=== PATIENT | male | born 1945 | race Caucasian/White ===

== ENCOUNTER → 2016-12-18 | Outpatient (CLI) | payer OTHER ==
[~2016-12-18] MED LIST: ATOR10TA88 PO; CHOL400C7 PO; HYDR50CA2 PO; MULT-506 PO; POLY335019 PO; VITACAP25 PO
[2016-12-18 17:46] LABS: ALT/SGPT 29 U/L (12-78); AST/SGOT 17 U/L (15-37); BLOOD UREA NITROGEN 17 mg/dl (7-18); BUN/CREATININE RATIO 18.6 (10-20); CALCIUM 8.8 mg/dl (8.5-10.1); CARBON DIOXIDE 26 mmol/L (21-32); CHLORIDE 110 mmol/L (98-107); CHOLESTEROL 143 mg/dl (0-200); CREATININE 0.93 mg/dl (0.60-1.40); GLUCOSE 97 mg/dl (70-99); POTASSIUM 4.2 mmol/L (3.5-5.1); SODIUM 142 mmol/L (136-145); TRIGLYCERIDES 76 mg/dl (0-150); VERY LOW DENSITY LIPOPROT CALC 15 mg/dl
[2016-12-18 18:06] LABS: ALB/GLOB RATIO 1.1 (0.9-2); ALKALINE PHOSPHATASE 85 U/L (45-117); CHOLESTEROL/HDL RATIO 2.5; HDL CHOLESTEROL 57 mg/dl; LDL CHOLESTEROL CALCULATED 71 mg/dl
--- NOTE | 2016-12-23 13:22 | CODING QUERY MEDICAL NECESSITY ---
SUPPORTING DIAGNOSIS NEEDED A supporting diagnosis is required for the test/procedure performed on this patient in order for us to be reimbursed by the patient's insurance. Please provide a supporting diagnosis for the following test/procedure listed below next to the test name along with your signature. *If there is no additional diagnosis for this patient that would support the following test/procedure please document that below next to the test/procedure. Test(s)/Procedure(s) that require a supporting diagnosis: DOS 12/18 * Vitamin D DIAGNOSIS: Provider Signature: Date: Thank you Lona [facility] Information [facility] Once completed, please kindly fax back to [phone] For questions please call [phone]
== END | disposition home or self-care (01) ==
LOC: C.LABPVFM 11:58
PROVIDERS: ATTEND Nurse Practitioner
DX: R41.3 Other amnesia (principal); E78.00 Pure hypercholesterolemia, unspecified; R63.4 Abnormal weight loss; M81.0 Age-related osteoporosis without current pathological fracture

== ENCOUNTER → 2017-03-25 | Outpatient (CLI) | payer OTHER ==
--- NOTE | 2017-03-25 14:15 | DIAGNOSTIC IMAGING REPORT ---
RIGHT SHOULDER MIN 2 VIEWS ROUTINE CLINICAL HISTORY: Right shoulder pain. No known injury. COMPARISON: None FINDINGS: Alignment of the right shoulder is anatomic. There is no fracture or suspicious osseous lesion. There is moderate AC joint arthrosis and moderate arthrosis of the glenohumeral joint. IMPRESSION: 1. No acute fracture. 2. 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 Electronically signed by: David Alfred M.D. 03/25/2017 2:14 PM Dictated Date/Time: 03/25/2017 2:04 PM
== END | disposition home or self-care (01) ==
LOC: C.LABPVFM 13:45
PROVIDERS: ATTEND Nurse Practitioner
DX: M25.511 Pain in right shoulder (principal); M19.011 Primary osteoarthritis, right shoulder

== ENCOUNTER → 2017-08-11 | Outpatient (CLI) | payer OTHER ==
[~2017-08-11] MED LIST changes: +ATOR10TA82 PO; -ATOR10TA88 PO
[2017-08-11 17:34] LABS: BLOOD UREA NITROGEN 17 mg/dl (7-18); BUN/CREATININE RATIO 17.5 (10-20); CALCIUM 8.6 mg/dl (8.5-10.1); CARBON DIOXIDE 26 mmol/L (21-32); CHLORIDE 108 mmol/L (98-107); CREATININE 0.98 mg/dl (0.60-1.40); GLUCOSE 99 mg/dl (70-99); POTASSIUM 4.1 mmol/L (3.5-5.1); SODIUM 141 mmol/L (136-145)
== END | disposition home or self-care (01) ==
LOC: C.LABPVFM 12:03
PROVIDERS: ATTEND Nurse Practitioner
DX: G11.9 Hereditary ataxia, unspecified (principal); M54.5 Low back pain

== ENCOUNTER → 2018-01-29 | Outpatient (CLI) | payer OTHER ==
--- NOTE | 2018-01-29 11:14 | DIAGNOSTIC IMAGING REPORT ---
R HUMERUS MIN 2 VIEWS ROUTINE CLINICAL HISTORY: ARM PAIN DIFFUSE pain COMPARISON: None. DISCUSSION: The bones and joint spaces appear intact. There is no evidence of fracture, dislocation or bony disease. There is no evidence for soft tissue swelling. IMPRESSION: Negative study. The above report was generated using voice recognition software. It may contain grammatical, syntax or spelling errors. Electronically signed by: Jovon Plata M.D. 01/29/2018 11:13 AM Dictated Date/Time: 01/29/2018 11:12 AM
== END | disposition home or self-care (01) ==
LOC: C.RADPV 10:49
PROVIDERS: ATTEND Nurse Practitioner
DX: M79.603 Pain in arm, unspecified (principal)

== ENCOUNTER → 2018-05-06 | Outpatient (CLI) | payer OTHER ==
[~2018-05-06] MED LIST changes: +DOCU-94 PO; +OXYC-737 PO; -POLY335019 PO; +SENN1TAB77 PO
[2018-05-06 17:39] LABS: BLOOD UREA NITROGEN 15 mg/dl (7-18); CALCIUM 8.7 mg/dl (8.5-10.1); CARBON DIOXIDE 28 mmol/L (21-32); CHOLESTEROL 130 mg/dl (0-200); CREATININE 0.95 mg/dl (0.60-1.40); GLUCOSE 100 mg/dl (70-99); LDL CHOLESTEROL CALCULATED 50 mg/dl; POTASSIUM 4.1 mmol/L (3.5-5.1); SODIUM 140 mmol/L (136-145)
== END | disposition home or self-care (01) ==
LOC: C.LABPVFM 11:30
PROVIDERS: ATTEND Nurse Practitioner
DX: E78.00 Pure hypercholesterolemia, unspecified (principal); R41.3 Other amnesia

== ENCOUNTER 2020-07-04 15:59 | Inpatient (IN) ==
[2020-07-04] MEDS ORDERED: SODIUM CHLORIDE 0.9% 1000ML 2,000 ML IV ONE (16:21)
[2020-07-04] MEDS ORDERED: PIPERACILLIN/TAZOBACTAM 4.5 GM/120 ML BAG IV ONE (16:22)
[2020-07-04] MEDS ORDERED: PIPERACILL/TAZOBAC CONSULT ACTIVE PRN (16:22)
--- NOTE | 2020-07-04 16:31 | Emergency Department Note ---
History of Present Illness General Chief complaint: Fever Stated complaint: FEVER, VOMITING, URINE Time Seen by Provider: 07/04/20 16:13 Source: patient, EMS, RN notes reviewed and old records reviewed Mode of arrival: EMS Limitations: altered mental status History of Present Illness Provider complaint: Fever, AMS Onset (ago): hour(s) 1 Location: abdomen Radiation: back Severity: moderate Pain Consistency: + constant Current Pain Intensity: 10 Quality: + stabbing Relieved By: + immobilization Exacerbated By: + movement Associated symptoms: + fever/chills, + nausea/vomiting and + shortness of breath Treatments prior to arrival: none This is a 75-year-old male who presents emergency department in acute distress. Patient arrives from [facility]. Per report the patient had a sudden decompensation approxi-1 hour ago. He was running a fever of 104 degrees and given Tylenol for this. Upon arrival to the emergency department the patient himself is complaining of abdominal pain. He has a Ashraf in place with sediment. He describes the pain is worse with movement however immobilization makes the pain better. He was given Tylenol for the pain. Home Medications Home Medications Medication Instructions Recorded Confirmed Type ascorbic acid (vitamin C) 500 mg 500 mg PO DAILY #30 tab 01/27/20 07/04/20 Rx tablet cholecalciferol (vitamin D3) 25 25 mcg PO DAILY #30 cap 01/27/20 07/04/20 Rx mcg (1,000 unit) capsule diclofenac sodium 4 g TOPICAL BID 04/16/20 07/04/20 History diclofenac sodium 4 gm TOPICAL HS 04/16/20 07/04/20 History multivitamin [Daily-Ivan] 1 tab PO DAILY 04/16/20 07/04/20 History fluticasone propionate 1 spray INTRANASAL BID 06/03/20 07/04/20 History dutasteride 0.5 mg capsule 0.5 mg PO DAILY #90 cap 06/14/20 07/04/20 Rx acetaminophen [Arthritis Pain 650 mg PO Q12H PRN MDD 3 GMS 07/04/20 07/04/20 History Reliever] APAP/24 HOURS diclofenac sodium 2 g TOPICAL QID PRN 07/04/20 07/04/20 History docusate sodium 100 mg PO [id number] 07/04/20 07/04/20 History food supplemt, lactose-reduced 1 ea PO DAILY 07/04/20 07/04/20 History [Ensure] nystatin 1 appln TOP TID PRN 07/04/20 07/04/20 History tamsulosin 0.4 mg PO HS 07/04/20 07/04/20 History tizanidine 2 mg PO BID PRN 07/04/20 07/04/20 History Allergies Allergy/AdvReac Type Severity Reaction Status Date / Time No Known Allergies Allergy Verified 07/04/20 18:48 Past Med/Surg History Medical History Allergic rhinitis At high risk for falls Biliary dyskinesia Chronic indwelling Ashraf catheter Cognitive changes Dependent for wheelchair mobility GERD (gastroesophageal reflux disease) Hypercholesteremia Insomnia Knee pain, right Lumbar pain on palpation Muscle weakness (generalized) Primary cerebellar degeneration Sleep disturbances Urinary symptom or sign Weight loss Surgical History History of cholecystectomy S/P hip replacement Status post hip replacement Family History Sister Breast cancer Other No pertinent family history Denies family history of Ovarian cancer Prostate cancer Myocardial infarction Colorectal cancer Social History Smoking Status: Unknown if ever smoked Tobacco Type: Cigarettes Hx Alcohol Use: No Hx Substance Use: No Preferred Language: Afghan Communication Ability: Effective Beliefs That Will Affect Care: None marital status: Single Current Living Situation: Personal Care Facility Current Living Situation Comment: [facility] current occupational status: disabled How many Children do You have: 0 Feels Safe at Home: Yes caffeine: Yes Dental Care, Regularly: No Physical Activity Frequency: Other Physical Activity Frequency Comment: Unable to exercise due to being disabled. Seatbelt Use: always Sunscreen Use: No Assistive Devices: Glasses and Wheelchair Review of Systems A total of 10 systems reviewed and were otherwise negative Physical Exam VITAL SIGNS - Vital signs and nursing notes were reviewed. GENERAL - 75-year-old male cachectic appearing stated age who is in acute distress. Communicates well with provider and answers questions appropriately. SKIN - Without rashes. HEAD - NC/AT. EYES - PERRL with EOMI bilaterally. Sclera anicteric. Palpebral conjunctiva pink and moist with no injection noted. EARS - No deformities of external structures noted on gross examination bilaterally. No pain elicited with palpation of the tragus bilaterally. External auditory canals without discharge or otorrhea. Tympanic membranes pearly bueno without retraction or bulging. No fluid or purulent material visualized behind the TM. Handle of malleus, umbo, cone of light, pars tensa/flaccid all easily visualized. NOSE - Midline and without cyanosis. No epistaxis or purulent drainage noted. Septum midline without deviation or septal hematoma noted. MOUTH/OROPHARYNX - Without perioral cyanosis. Buccal mucosa pink and moist and without leukoplakia. Tongue midline with equal elevation of palate bilaterally. No tonsillar hypertrophy, erythema, or exudates noted. dentition noted. NECK - Neck with FROM. Supple to palpation. lymphadenopathy noted. No nuchal rigidity. LUNGS - Chest wall symmetric without accessory muscle use, intercostals retractions, or central cyanosis. Normal vesicular breath sounds CTA B/L. No wheezes, rales, or rhonchi appreciated. CARDIAC - RRR with S1/S2. No murmur, rubs, or gallops appreciated. ABDOMEN - Abdominal contourwithout pulsations or visible masses. BS normoactive all four quadrants. tender suprapubic area palpable masses, hepatosplenomegaly, or ascites noted. EXTREMITIES - No clubbing or peripheral cyanosis. No pretibial edema present. +3/5 radial, posterior tibial, and dorsalis pedis pulses palpated throughout. +5/5 strength noted in UE/LE bilaterally. NEUROLOGIC - Cranial nerves II through XII grossly intact. Sensory intact to light touch throughout. Patellar reflexes +2/4. PSYCH - A&Ox3 and cooperates fully with examiner. Pt is very pleasant and interacts well with examiner. Course Administered Medications Ascorbic Acid (Ascorbic Acid 500 Mg Tab) 500 mg PO DAILY SERA Stop: 08/05/20 08:59 Last Admin: 07/06/20 08:03 Dose: 500 mg Documented by: [id number] Diclofenac Sodium (Diclofenac Sod 1% Gel 100 Gm Tube) 2 gm EXT QID PRN PRN Reason: Pain Stop: 08/04/20 17:49 Last Admin: 07/06/20 14:47 Dose: 2 gm Documented by: [id number] Diclofenac Sodium (Diclofenac Sod 1% Gel 100 Gm Tube) 4 gm EXT HS SERA Stop: 08/04/20 20:59 Last Admin: 07/06/20 21:54 Dose: 4 gm Documented by: [id number] Admin: 07/05/20 20:52 Dose: 4 gm Documented by: [id number] Diclofenac Sodium (Diclofenac Sod 1% Gel 100 Gm Tube) 4 gm EXT BID [facility], 1928–1983 Stop: 08/04/20 20:59 Last Admin: 07/06/20 21:54 Dose: 4 gm Documented by: [id number] Admin: 07/06/20 12:35 Dose: 4 gm Documented by: [id number] Admin: 07/05/20 20:51 Dose: 4 gm Documented by: [id number] Docusate Sodium (Docusate Sodium 100 Mg Cap) 100 mg PO [id number] FOR[facility], 1928–1983 Stop: 08/05/20 08:59 Last Admin: 07/06/20 08:03 Dose: 100 mg Documented by: [id number] Fluticasone Propionate (Fluticasone Propionate Na Spr 16 Gm Btl) 1 sprays NA BID [facility], [facility]1983 Stop: 08/03/20 20:59 Last Admin: 07/06/20 21:53 Dose: 1 sprays Documented by: [id number] Admin: 07/06/20 08:03 Dose: 1 sprays Documented by: [id number] Admin: 07/05/20 20:50 Dose: 1 sprays Documented by: [id number] Admin: 07/05/20 07:32 Dose: 1 sprays Documented by: [id number] Admin: 07/04/20 21:58 Dose: 1 sprays Documented by: [id number] Heparin Sodium (Porcine) (Heparin Sod 5,000 Unit/0.5 Ml Vial) 5,000 units SQ Q12 SERA Stop: 08/03/20 20:59 Last Admin: 07/06/20 21:53 Dose: 5,000 units Documented by: [id number] Cosigned by: [id number] Admin: 07/06/20 12:28 Dose: 5,000 units Documented by: [id number] Cosigned by: [id number] Admin: 07/05/20 20:52 Dose: 5,000 units Documented by: [id number] Cosigned by: [id number] Admin: 07/05/20 07:33 Dose: 5,000 units Documented by: [id number] Cosigned by: [id number] Admin: 07/04/20 21:57 Dose: 5,000 units Documented by: [id number] Cosigned by: [id number] Ceftriaxone Sodium 1,000 mg/ (Dextrose) 60 mls @ 120 mls/hr IV Q24H SERA Stop: 07/19/20 11:59 Last Infusion: 07/06/20 17:22 Dose: 0 mls/hr Documented by: [id number] Admin: 07/06/20 14:43 Dose: 120 mls/hr Documented by: [id number] Infusion: 07/05/20 12:50 Dose: 0 mls/hr Documented by: [id number] Admin: 07/05/20 11:52 Dose: 120 mls/hr Documented by: [id number] Miscellaneous (Avodart: Order Awaiting Action) 1 ea N/A QS SERA Stop: 08/04/20 07:59 Last Admin: 07/06/20 17:22 Dose: Not Given Documented by: [id number] Admin: 07/06/20 10:53 Dose: Not Given Documented by: [id number] Admin: 07/06/20 00:03 Dose: Not Given Documented by: [id number] Admin: 07/05/20 14:37 Dose: Not Given Documented by: [id number] Admin: 07/05/20 07:32 Dose: Not Given Documented by: [id number] Multivitamins (Multivitamin Tab) 1 tab PO DAILY SERA Stop: 08/04/20 08:59 Last Admin: 07/06/20 10:52 Dose: 1 tab Documented by: [id number] Admin: 07/05/20 07:33 Dose: Not Given Documented by: [id number] Nystatin (Nystatin Powder 15gm Btl) 1 appln EXT TID PRN PRN Reason: Rash/Irritation Stop: 08/03/20 20:58 Last Admin: 07/06/20 10:52 Dose: 1 appln Documented by: [id number] Tamsulosin HCl (Tamsulosin Hcl 0.4 Mg Cap) 0.4 mg PO HS SERA Stop: 08/04/20 20:59 Last Admin: 07/06/20 21:53 Dose: 0.4 mg Documented by: [id number] Admin: 07/05/20 20:53 Dose: 0.4 mg Documented by: [id number] Vitamin D (Cholecalciferol 1,000 Units 25 Mcg Tab) 1,000 units PO DAILY SERA Stop: 08/05/20 08:59 Last Admin: 07/06/20 08:03 Dose: 1,000 units Documented by: [id number] Discontinued Medications Sodium Chloride (Nss 1000ml) 2,000 mls @ 999 mls/hr IV .Q2H1M ONE Stop: 07/04/20 18:21 Last Infusion: 07/04/20 17:54 Dose: 0 mls/hr Documented by: [id number] Admin: 07/04/20 17:02 Dose: 999 mls/hr Documented by: [id number] Piperacillin Sod/Tazobactam Sod (Zosyn) 4.5 gm in 120 mls @ 240 mls/hr IV NOW ONE Stop: 07/04/20 16:51 Last Infusion: 07/04/20 17:54 Dose: 0 mls/hr Documented by: [id number] Admin: 07/04/20 17:02 Dose: 240 mls/hr Documented by: [id number] Levofloxacin/Dextrose (Levaquin/D5w) 750 mg in 150 mls @ 100 mls/hr IV NOW STA Stop: 07/04/20 18:06 Last Infusion: 07/04/20 20:40 Dose: 0 mls/hr Documented by: [id number] Admin: 07/04/20 17:49 Dose: 100 mls/hr Documented by: [id number] Sodium Chloride (Nss 1000ml) 1,000 mls @ 999 mls/hr IV .Q1H1M ONE Stop: 07/04/20 17:53 Last Infusion: 07/04/20 19:17 Dose: 0 mls/hr Documented by: [id number] Admin: 07/04/20 17:49 Dose: 999 mls/hr Documented by: [id number] Daptomycin 520 mg/ Syringe 10.4 mls @ 5.2 mls/min IV NOW ONE; Protocol Stop: 07/04/20 17:06 Last Admin: 07/04/20 19:16 Dose: 5.2 mls/min Documented by: [id number] Sodium Chloride (Nss 1000ml) 1,000 mls @ 999 mls/hr IV .Q1H1M ONE Stop: 07/04/20 19:16 Last Infusion: 07/04/20 20:41 Dose: 0 mls/hr Documented by: [id number] Admin: 07/04/20 19:17 Dose: 999 mls/hr Documented by: [id number] Parenteral Electrolytes (Normosol-R) 1,000 mls @ 100 mls/hr IV .Q10H SERA Stop: 08/03/20 20:58 Last Infusion: 07/06/20 12:37 Dose: 0 mls/hr Documented by: [id number] Admin: 07/06/20 03:52 Dose: 100 mls/hr Documented by: [id number] Infusion: 07/06/20 03:52 Dose: 100 mls/hr Documented by: [id number] Admin: 07/05/20 17:52 Dose: 100 mls/hr Documented by: [id number] Infusion: 07/05/20 17:51 Dose: 100 mls/hr Documented by: [id number] Admin: 07/05/20 07:34 Dose: 100 mls/hr Documented by: [id number] Infusion: 07/05/20 07:34 Dose: 100 mls/hr Documented by: [id number] Admin: 07/04/20 21:55 Dose: 100 mls/hr Documented by: [id number] Famotidine 20 mg/ Syringe 5 mls @ 2.5 mls/min IV Q12H SERA Stop: 08/03/20 20:59 Last Admin: 07/05/20 07:34 Dose: 2.5 mls/min Documented by: [id number] Admin: 07/04/20 21:56 Dose: 2.5 mls/min Documented by: [id number] Norepinephrine Bitartrate 8 mg (/ Dextrose) 508 mls @ 16.459 mls/hr IV .Q24H SERA; Protocol Stop: 08/03/20 20:59 Last Admin: 07/05/20 10:25 Dose: Not Given Documented by: [id number] Piperacillin Sod/Tazobactam (Sod 4.5 gm/ Dextrose) 120 mls @ 30 mls/hr IV Q8H SERA; Protocol Stop: 07/14/20 21:59 Last Infusion: 07/05/20 10:25 Dose: 0 mls/hr Documented by: [id number] Admin: 07/05/20 06:25 Dose: 30 mls/hr Documented by: [id number] Infusion: 07/05/20 01:56 Dose: 0 mls/hr Documented by: [id number] Admin: 07/04/20 21:56 Dose: 30 mls/hr Documented by: [id number] Calcium Gluconate 2,000 mg/ (Sodium Chloride) 70 mls @ 240 mls/hr IV NOW ONE Stop: 07/05/20 07:12 Last Infusion: 07/05/20 08:03 Dose: 0 mls/hr Documented by: [id number] Admin: 07/05/20 07:32 Dose: 240 mls/hr Documented by: [id number] Miscellaneous (Patient's Height And/Or Weight Needed) 1 ea N/A Q2H SERA Stop: 07/04/20 21:31 Last Admin: 07/04/20 21:56 Dose: Not Given Documented by: [id number] Potassium Chloride (Potassium Chloride 20 Meq Tabcr) 40 meq PO NOW STA Stop: 07/06/20 10:55 Last Admin: 07/06/20 12:31 Dose: 40 meq Documented by: [id number] Critical Care Time I have personally spent greater than 90 minutes of critical care time in the direct management of this patient. This includes bedside care, interpretation of diagnostic studies, and testing, discussion with consultants, patient, and family members, and other required patient management activities. This 90 minutes is in excess of all separately billable procedures. Medical Decision Making Differential Diagnosis Viral syndrome, otitis, pharyngitis, pneumonia, influenza, meningitis, urinary tract infection, sepsis, bacteremia, as well as other pathologies. Medical Records Attestation: I reviewed the patient's medical records. Home Medications Current Medication List: was personally reviewed by me Laboratory Data Attestation: I reviewed the patient's lab results. Result diagrams: 07/06/20 04:54 07/06/20 04:54 Lab Results 07/04/20 07/04/20 07/04/20 Range/Units 16:11 16:11 16:11 WBC 18.50 H (4.8-10.8) K/uL RBC 4.33 L (4.7-6.1) M/uL Hgb 13.2 L (14.0-18.0) g/dL Hct 38.2 L (42-52) % MCV 88.2 (80-100) fL MCH 30.5 (25-34) pg MCHC 34.6 (32-36) g/dL RDW Std Deviation 46.7 H (36.4-46.3) fL RDW Coeff of Kendal 14.3 (11.5-14.5) % Plt Count 303 (130-400) K/uL MPV 9.0 (7.4-10.4) fL Immature Gran % (Auto) 0.2 % Neut % (Auto) 97.8 % Lymph % (Auto) 1.2 % Coos % (Auto) 0.8 % Eos % (Auto) 0.0 % Baso % (Auto) 0.0 % Neut # (Auto) 18.08 H (1.4-6.5) K/uL Lymph # (Auto) 0.23 L (1.2-3.4) K/uL Coos # (Auto) 0.15 (0.11-0.59) K/uL Eos # (Auto) 0.00 (0-0.5) K/uL Baso # (Auto) 0.00 (0-0.2) K/uL Immature Gran # (Auto) 0.04 H (0.00-0.02) K/uL PT 12.4 H (9.0-12.0) Seconds INR 1.2 H (0.9-1.1) APTT 25.8 (21.0-31.0) Seconds PTT Ratio 0.9 Sodium 138 (136-145) mmol/L Potassium 4.4 (3.5-5.1) mmol/L Chloride 107 (98-107) mmol/L Carbon Dioxide 16 L (21-32) mmol/L Anion Gap 15.0 H (3-11) BUN 44 H (7-18) mg/dl Creatinine 2.46 H (0.6-1.4) mg/dl Est Cr Clr Drug Dosing Not Reportable Est GFR ( Amer) 29.0 Est GFR (Non-Af Amer) 25.0 BUN/Creatinine Ratio 17.9 (10-20) Glucose 150 H (70-99) mg/dl Lactate (0.4-2.0) mmol/L Calcium 8.4 L (8.5-10.1) mg/dl Magnesium 2.1 (1.8-2.4) mg/dl Total Bilirubin 1.0 (0.2-1) mg/dl AST 16 (15-37) U/L ALT 16 (12-78) U/L Alkaline Phosphatase 90 (45-117) U/L Total Creatine Kinase 108 (39-308) U/L CK-MB (CK-2) 1.5 (0.5-3.6) ng/ml CK/CKMB % Calc 1.4 (0-3.0) Troponin I < 0.015 (0-0.045) ng/ml Total Protein 6.9 (6.4-8.2) gm/dl Albumin 2.8 L (3.4-5.0) gm/dl Globulin 4.1 H (2.5-4.0) gm/dl Albumin/Globulin Ratio 0.7 L (0.9-2) Procalcitonin (0-0.5) ng/ml Urine Color Urine Appearance (Clear) Urine pH (4.5-7.5) Ur Specific [place] (1.000-1.030) Urine Protein (Negative) Urine Glucose (UA) (Negative) Urine Ketones (Negative) Urine Blood (Negative) Urine Nitrite (Negative) Urine Bilirubin (Negative) Urine Urobilinogen (Negative) Ur Leukocyte Esterase (Negative) Urine WBC (Auto) (0-5) /hpf Urine RBC (Auto) (0-4) /hpf U Hyaline Cast (Auto) (0-5) /lpf U Epithel Cells (Auto) (0-5) /lpf Urine Bacteria (Auto) (Negative) Urine Yeast COVID-19 Eval Order COVID-19 PCR (Negative) 07/04/20 07/04/20 07/04/20 Range/Units 16:11 16:11 16:30 WBC (4.8-10.8) K/uL RBC (4.7-6.1) M/uL Hgb (14.0-18.0) g/dL Hct (42-52) % MCV (80-100) fL MCH (25-34) pg MCHC (32-36) g/dL RDW Std Deviation (36.4-46.3) fL RDW Coeff of Kendal (11.5-14.5) % Plt Count (130-400) K/uL MPV (7.4-10.4) fL Immature Gran % (Auto) % Neut % (Auto) % Lymph % (Auto) % Coos % (Auto) % Eos % (Auto) % Baso % (Auto) % Neut # (Auto) (1.4-6.5) K/uL Lymph # (Auto) (1.2-3.4) K/uL [place] # (Auto) (0.11-0.59) K/uL Eos # (Auto) (0-0.5) K/uL Baso # (Auto) (0-0.2) K/uL Immature Gran # (Auto) (0.00-0.02) K/uL PT (9.0-12.0) Seconds INR (0.9-1.1) APTT (21.0-31.0) Seconds PTT Ratio Sodium (136-145) mmol/L Potassium (3.5-5.1) mmol/L Chloride (98-107) mmol/L Carbon Dioxide (21-32) mmol/L Anion Gap (3-11) BUN (7-18) mg/dl Creatinine (0.6-1.4) mg/dl Est Cr Clr Drug Dosing Est GFR ( Amer) Est GFR (Non-Af Amer) BUN/Creatinine Ratio (10-20) Glucose (70-99) mg/dl Lactate 6.2 H* (0.4-2.0) mmol/L Calcium (8.5-10.1) mg/dl Magnesium (1.8-2.4) mg/dl Total Bilirubin (0.2-1) mg/dl AST (15-37) U/L ALT (12-78) U/L Alkaline Phosphatase (45-117) U/L Total Creatine Kinase (39-308) U/L CK-MB (CK-2) (0.5-3.6) ng/ml CK/CKMB % Calc (0-3.0) Troponin I (0-0.045) ng/ml Total Protein (6.4-8.2) gm/dl Albumin (3.4-5.0) gm/dl Globulin (2.5-4.0) gm/dl Albumin/Globulin Ratio (0.9-2) Procalcitonin 3.04 H (0-0.5) ng/ml Urine Color Urine Appearance (Clear) Urine pH (4.5-7.5) Ur Specific [place] (1.000-1.030) Urine Protein (Negative) Urine Glucose (UA) (Negative) Urine Ketones (Negative) Urine Blood (Negative) Urine Nitrite (Negative) Urine Bilirubin (Negative) Urine Urobilinogen (Negative) Ur Leukocyte Esterase (Negative) Urine WBC (Auto) (0-5) /hpf Urine RBC (Auto) (0-4) /hpf U Hyaline Cast (Auto) (0-5) /lpf U Epithel Cells (Auto) (0-5) /lpf Urine Bacteria (Auto) (Negative) Urine Yeast COVID-19 Eval Order Covid19 Done at [facility] COVID-19 PCR (Negative) 07/04/20 07/04/20 07/04/20 Range/Units 16:30 16:40 19:17 WBC (4.8-10.8) K/uL RBC (4.7-6.1) M/uL Hgb (14.0-18.0) g/dL Hct (42-52) % MCV (80-100) fL MCH (25-34) pg MCHC (32-36) g/dL RDW Std Deviation (36.4-46.3) fL RDW Coeff of Kendal (11.5-14.5) % Plt Count (130-400) K/uL MPV (7.4-10.4) fL Immature Gran % (Auto) % Neut % (Auto) % Lymph % (Auto) % Coos % (Auto) % Eos % (Auto) % Baso % (Auto) % Neut # (Auto) (1.4-6.5) K/uL Lymph # (Auto) (1.2-3.4) K/uL [place] # (Auto) (0.11-0.59) K/uL Eos # (Auto) (0-0.5) K/uL Baso # (Auto) (0-0.2) K/uL Immature Gran # (Auto) (0.00-0.02) K/uL PT (9.0-12.0) Seconds INR (0.9-1.1) APTT (21.0-31.0) Seconds PTT Ratio Sodium (136-145) mmol/L Potassium (3.5-5.1) mmol/L Chloride (98-107) mmol/L Carbon Dioxide (21-32) mmol/L Anion Gap (3-11) BUN (7-18) mg/dl Creatinine (0.6-1.4) mg/dl Est Cr Clr Drug Dosing Est GFR ( Amer) Est GFR (Non-Af Amer) BUN/Creatinine Ratio (10-20) Glucose (70-99) mg/dl Lactate 2.9 H* (0.4-2.0) mmol/L Calcium (8.5-10.1) mg/dl Magnesium (1.8-2.4) mg/dl Total Bilirubin (0.2-1) mg/dl AST (15-37) U/L ALT (12-78) U/L Alkaline Phosphatase (45-117) U/L Total Creatine Kinase (39-308) U/L CK-MB (CK-2) (0.5-3.6) ng/ml CK/CKMB % Calc (0-3.0) Troponin I (0-0.045) ng/ml Total Protein (6.4-8.2) gm/dl Albumin (3.4-5.0) gm/dl Globulin (2.5-4.0) gm/dl Albumin/Globulin Ratio (0.9-2) Procalcitonin (0-0.5) ng/ml Urine Color [place] Urine Appearance Turbid A (Clear) Urine pH >= 9.0 H (4.5-7.5) Ur Specific [place] 1.012 (1.000-1.030) Urine Protein 3+ H (Negative) Urine Glucose (UA) Negative (Negative) Urine Ketones Negative (Negative) Urine Blood 3+ H (Negative) Urine Nitrite Positive A (Negative) Urine Bilirubin Negative (Negative) Urine Urobilinogen Negative (Negative) Ur Leukocyte Esterase 3+ H (Negative) Urine WBC (Auto) >30 H (0-5) /hpf Urine RBC (Auto) 10-30 H (0-4) /hpf U Hyaline Cast (Auto) 1-5 (0-5) /lpf U Epithel Cells (Auto) >30 H (0-5) /lpf Urine Bacteria (Auto) 4+ H (Negative) Urine Yeast Not Reportable COVID-19 Eval Order COVID-19 PCR NEGATIVE (Negative) Imaging Data Radiologist's Impression: [facility], [place] [phone] XRay Report Patient: JOSE F VITAL Date: 07/04/20 MR#: [id number]: [address] Acct ID:[id number]: Date: 1945[facility] Zip: [place] [address] Age: 75Location: ED Sex: MRoom/Bed: Att Phy:Diagnosis: FEVER, VOMITING, URINE Lisa Phy: [facility] Date: 07/04/20 Fam Phy:Interpreting Phy: Paul Guy MD Admit Phy: Ordering Phy: Walt Trinh MD cc: ~ XR chest 1V portable CLINICAL HISTORY: SEPSIS COMPARISON STUDY: 04/16/2020 FINDINGS: The cardiac and mediastinal contours are normal. There is no evidence of focal pulmonary consolidation. There is no evidence of failure. No pleural effusions are visualized.[Slightly prominent basilar markings are felt to be atelectatic IMPRESSION: No active disease in the chest. ACT 112: Negative or not required by law. Electronically signed by: Paul Guy M.D. 07/04/2020 5:42 PM Dictated: 07/04/201740 Transcribed: 07/04/201740 [place], [place] [phone] CT Scan Report Patient: JOSE F VITAL Date: 07/04/20 MR#: [id number]: [address] Acct ID:[id number]: Date: 1945[facility] Zip: [place] [address] Age: 75Location: ED Sex: MRoom/Bed: Att Phy:Diagnosis: FEVER, VOMITING, URINE Lisa Phy: [facility] Date: 07/04/20 Fam Phy:Interpreting Phy: Paul Guy MD Admit Phy: Ordering Phy: Walt Trinh MD cc: ~ CT head/brain wo con CLINICAL HISTORY: Fever, acute change in mental status. COMPARISON STUDY: April 16, 2020 TECHNIQUE: Axial CT of the brain is performed from the vertex to the skull base. IV contrast was not administered for this examination. A dose lowering technique was utilized adhering to the principles of ALARA. CT DOSE: 1885.65 mGycm FINDINGS: No intra or extra-axial mass lesions are visualized. There is no CT evidence of acute cortical infarction. There is no evidence of midline shift. There is no acute hemorrhage. No calvarial fractures are visualized. The study is compromised due to motion artifact. There is cerebellar atrophy. There are minimal white matter hypodensities likely on a small vessel basis. There is no evidence of pathologic ventricular dilatation. There is no evidence of acute sinusitis IMPRESSION: 1. Motion degraded study 2. Cerebellar atrophy 3. No acute intracranial findings ACT 112: Negative or not required by law. Electronically signed by: Paul Guy M.D. 07/04/2020 6:25 PM Dictated: 07/04/201819 Transcribed: 07/04/201821 [place], [place] [phone] CT Scan Report Patient: JOSE F VITAL Date: 07/04/20 MR#: [id number]: [address] Acct ID:[id number]: Date: 1945[facility] Zip: [place] [address] Age: 75Location: ED Sex: MRoom/Bed: Att Phy:Diagnosis: FEVER, VOMITING, URINE Lisa Phy: [facility] [place] Date: 07/04/20 Fam Phy:Interpreting Phy: Paul Guy MD Admit Phy: Ordering Phy: Walt Trinh MD cc: ~ CT SCAN OF THE ABDOMEN AND PELVIS WITHOUT CONTRAST CLINICAL HISTORY: Fever, acute change in mental status. Renal insufficiency. COMPARISON STUDY: 04/03/2020 TECHNIQUE: CT scan of the abdomen and pelvis was performed from the lung bases to the proximal femurs. Images are reviewed in the axial, sagittal, and coronal planes. IV contrast was not administered for this examination. A dose lowering technique was utilized adhering to the principles of ALARA. CT DOSE: 1181.53 mGycm FINDINGS: Lower chest: There are basilar atelectatic changes Liver: The unenhanced liver is normal in size, contour, and attenuation. There is no intrahepatic biliary ductal dilatation. Gallbladder: Surgically absent Spleen: Normal in size and attenuation. Pancreas: Unremarkable. Adrenal glands: There is mild left adrenal gland thickening Kidneys: No renal, ureteral, or bladder calculi are visualized. There is mild bilateral ureteral dilatation. Bowel: There are no transition zones to indicate bowel obstruction. There is no evidence of acute diverticulitis. There are prominent fluid-filled pelvic small bowel loops. Visualized portions of the appendix appear within normal limits. There is mild colonic fecal retention. Peritoneum: There is no intraperitoneal free air or abdominal ascites. Vasculature: The abdominal aorta is normal in course and caliber. Adenopathy: None. Pelvic viscera: There is an indwelling Ashraf catheter. There is marked bladder wall thickening. Skeletal structures: Postsurgical changes involve the right hip. There are advanced arthritic changes involving each hip. The prostate is enlarged. IMPRESSION: 1. No evidence of bowel obstruction. No evidence of free air 2. No renal, ureteral, or bladder calculi identified 3. Marked bladder wall thickening. Indwelling Ashraf catheter 4. No evidence of acute diverticulitis. No evidence of acute appendicitis. 5. Moderate colonic stool. Fluid-filled small bowel loops. The findings may represent a mild ileus. 5. Prostatomegaly ACT 112: Negative or not required by law. Electronically signed by: Paul Guy M.D. 07/04/2020 6:31 PM Dictated: 07/04/201824 Transcribed: 07/04/201824 ECG Data Attestation: I personally reviewed and interpreted this ECG as follows: Indication: + altered mental status Rate (beats per minute): 136 Rhythm: + sinus tachycardia ECG Intervals/blocks: + Normal QT-c (466) ECG Bosler: + Normal ECG ST segments: no ST depression and no ST elevation Comparison ECG Date: from (04/16/20) Change: the following changes noted (rate has increased by 46 ) Blood Pressure Blood Pressure Findings: Low blood pressure MDM Narrative This is a [facility] downtime chart. Patient was seen and evaluated as above in room A4. Review was performed of nursing notes and vital signs. I did review pertinent previous visits and patient history. After obtaining a thorough history and physical examination the above work up was performed. This is a 75-year-old male who arrives to the emergency department in acute distress. Patient is febrile hypotensive and tachycardic. The patient was given 30 mL's per kilogram of fluid. His potassium was repleted. He is complai tiffanie of abdominal pain and his Ashraf was immediately replaced. This caused the patient to have a large output of urine. I suspect that this may have been 1 of this patient's big issues. He was started on broad-spectrum antibiotics. I did discuss the case with the hospitalist service who did agree to admit the patient. Patient was found to be in acute renal failure. While in the department, I personally reevaluated the patient several times and each time the patient was found to be resting comfortably. The patient was educated upon management, educated upon todays findings/results, educated upon importance of follow up from today's visit, educated upon symptoms in which to return, had questions answered prior to discharge, verbalized understanding, and was discharged home in good condition. An order was placed for continuous cardiac monitoring. The monitor shows a rate of 130 with Normal SInus rhythm. I attest that I have personally reviewed the patient medication list. I attest that I have reviewed the patient's blood pressure and it was found to be [] GCS: 15 The patient was evaluated during the global COVID-19 pandemic, and that diagnosis was suspected/considered upon their initial presentation. Their evaluation, treatment and testing was consistent with current guidelines for patients who present with complaints or symptoms that may be related to COVID-19. Impression & Plan Hypokalemia, Severe sepsis, Septic shock, Chronic indwelling Ashraf catheter, Catheter-associated urinary tract infection, Complication, blocked Ashraf catheter Discharge Plan Visit Data Chief Complaint: Fever Stated Complaint: FEVER, VOMITING, URINE ED Provider: Walt Trinh Discharge Problem: Hypokalemia, Severe sepsis, Septic shock, Chronic indwelling Ashraf catheter, Catheter-associated urinary tract infection, Complication, blocked Ashraf catheter Patient Disposition: Admitted As Inpatient Discharge Instructions Interventions: ED Discharge Assessment Last Done: 07/04/20 20:23 Discharge Problem: Catheter-associated urinary tract infection Qualifiers: Indwelling urinary catheter type: unspecified Encounter type: initial encounter Qualified Code(s): T83.511A - Infection and inflammatory reaction due to indwelling urethral catheter, initial encounter Complication, blocked Ashraf catheter Qualifiers: Encounter type: initial encounter Qualified Code(s): T83.091A - Other mechanica l complication of indwelling urethral catheter, initial encounter
[2020-07-04 16:34] LABS: Hematocrit (blood only) 38.2 % (42-52); Hemoglobin 13.2 g/dL (14.0-18.0); Immature Granulocytes # (auto) 0.04 K/uL (0.00-0.02); Immature Granulocytes % (auto) 0.2 %; Lymphocytes # (auto) 0.23 K/uL (1.2-3.4); Lymphocytes % (auto) 1.2 %; Mean Corpuscular Hemoglobin 30.5 pg (25-34); Mean Corpuscular Hgb Conc 34.6 g/dL (32-36); Mean Corpuscular Volume 88.2 fL (80-100); Monocytes # (auto) 0.15 K/uL (0.11-0.59); Monocytes % (auto) 0.8 %; Neutrophils # (auto) 18.08 K/uL (1.4-6.5); Neutrophils % (auto) 97.8 %; Platelet Count 303 K/uL (130-400); RDW Coefficient of Variation 14.3 % (11.5-14.5); RDW Standard Deviation 46.7 fL (36.4-46.3); Red Blood Count 4.33 M/uL (4.7-6.1)
[2020-07-04] MEDS ORDERED: levoFLOXacin/D5W 750 MG/150 ML BAG IV STA (16:37)
[2020-07-04 16:43] LABS: Alanine Aminotransferase 16 U/L (12-78); Albumin Level 2.8 gm/dl (3.4-5.0); Aspartate Aminotransferase 16 U/L (15-37); BUN Creatinine Ratio 17.9 (10-20); Blood Urea Nitrogen 44 mg/dl (7-18); Calcium 8.4 mg/dl (8.5-10.1); Carbon Dioxide 16 mmol/L (21-32); Chloride 107 mmol/L (98-107); Glucose 150 mg/dl (70-99); Magnesium 2.1 mg/dl (1.8-2.4); Potassium 4.4 mmol/L (3.5-5.1); Sodium 138 mmol/L (136-145)
[2020-07-04 16:45] LABS: INR 1.2 (0.9-1.1); Partial Thromboplastin Ratio 0.9; Partial Thromboplastin Time 25.8 Seconds (21.0-31.0); Prothrombin Time 12.4 Seconds (9.0-12.0)
[2020-07-04 16:48] LABS: Albumin Globulin Ratio 0.7 (0.9-2); Alkaline Phosphatase 90 U/L (45-117); Creatine Kinase 108 U/L (39-308); Creatine Kinase MB 1.5 ng/ml (0.5-3.6); Globulin 4.1 gm/dl (2.5-4.0); Total Protein 6.9 gm/dl (6.4-8.2); Troponin I < 0.015 ng/ml (0-0.045)
[2020-07-04] MEDS ORDERED: SODIUM CHLORIDE 0.9% 1000ML 1,000 ML IV ONE (16:53)
[2020-07-04] MEDS ORDERED: DAPTOMYCIN IV ONE (17:05)
[2020-07-04 17:06] LABS: Appearance Urine Turbid (Clear); Bacteria Urine Automated 4+ (Negative); Bilirubin Urine Negative (Negative); Blood Urine 3+ (Negative); Color Urine Orange; Epithelial Cell Urine Auto >30 /lpf (0-5); Glucose Urine UA Negative (Negative); Ketones Urine Negative (Negative); Leukocyte Esterase Urine 3+ (Negative); Nitrite Urine Positive (Negative); Specific Gravity Urine 1.012 (1.000-1.030); Urobilinogen Urine Negative (Negative); WBC Urine Automated >30 /hpf (0-5); pH Urine >= 9.0 (4.5-7.5)
[2020-07-04 17:35] LABS: Protein Urine 3+ (Negative)
[2020-07-04 17:36] LABS: Sulfosalicylic Acid Urine Positive (Negative)
--- NOTE | 2020-07-04 17:43 | XRay Report ---
XR chest 1V portable CLINICAL HISTORY: SEPSIS COMPARISON STUDY: 04/16/2020 FINDINGS: The cardiac and mediastinal contours are normal. There is no evidence of focal pulmonary co nsolidation. There is no evidence of failure. No pleural effusions are visualized.[Slightly prominent basilar markings are felt to be atelectatic IMPRESSION: No active disease in the chest. ACT 112: Negative or not required by law. Electronically signed by: Paul Guy M.D. 07/04/2020 5:42 PM
[2020-07-04] MEDS: SODIUM CHLORIDE 0.9% 1000ML 1,000 ML IV ONE ×2 (18:20→19:17)
--- NOTE | 2020-07-04 18:26 | CT Scan Report ---
CT head/brain wo con CLINICAL HISTORY: Fever, acute change in mental status. COMPARISON STUDY: April 16, 2020 TECHNIQUE: Axial CT of the brain is performed from the vertex to the skull base. IV contrast was not administered for this examination. A dose lowering technique was utilized adhering to the principles of ALARA. CT DOSE: 1885.65 mGycm FINDINGS: No intra or extra-axial mass lesions are visualized. There is no CT evidence of acute cortical infarc tion. There is no evidence of midline shift. There is no acute hemorrhage. No calvarial fractures ar e visualized. The study is compromised due to motion artifact. There is cerebellar atrophy. There are minimal white matter hypodensities likely on a small vessel basis. There is no evidence of pathologic ventricular dilatation. There is no evidence of acute sinusitis IMPRESSION: 1. Motion degraded study 2. Cerebellar atrophy 3. No acute intracranial findings ACT 112: Negative or not required by law. Electronically signed by: Paul Guy M.D. 07/04/2020 6:25 PM
--- NOTE | 2020-07-04 18:32 | CT Scan Report ---
CT SCAN OF THE ABDOMEN AND PELVIS WITHOUT CONTRAST CLINICAL HISTORY: Fever, acute change in mental status. Renal insufficiency. COMPARISON STUDY: 04/03/2020 TECHNIQUE: CT scan of the abdomen and pelvis was performed from the lung bases to the proximal femurs . Images are reviewed in the axial, sagittal, and coronal planes. IV contrast was not administered fo r this examination. A dose lowering technique was utilized adhering to the principles of ALARA. CT DOSE: 1181.53 mGycm FINDINGS: Lower chest: There are basilar atelectatic changes Liver: The unenhanced liver is normal in size, contour, and attenuation. There is no intrahepatic karolyn iary ductal dilatation. Gallbladder: Surgically absent Spleen: Normal in size and attenuation. Pancreas: Unremarkable. Adrenal glands: There is mild left adrenal gland thickening Kidneys: No renal, ureteral, or bladder calculi are visualized. There is mild bilateral ureteral dila tation. Bowel: There are no transition zones to indicate bowel obstruction. There is no evidence of acute div erticulitis. There are prominent fluid-filled pelvic small bowel loops. Visualized portions of the ap pendix appear within normal limits. There is mild colonic fecal retention. Peritoneum: There is no intraperitoneal free air or abdominal ascites. Vasculature: The abdominal aorta is normal in course and caliber. Adenopathy: None. Pelvic viscera: There is an indwelling Ashraf catheter. There is marked bladder wall thickening. Skeletal structures: Postsurgical changes involve the right hip. There are advanced arthritic changes involving each hip. The prostate is enlarged. IMPRESSION: 1. No evidence of bowel obstruction. No evidence of free air 2. No renal, ureteral, or bladder calculi identified 3. Marked bladder wall thickening. Indwelling Ashraf catheter 4. No evidence of acute diverticulitis. No evidence of acute appendicitis. 5. Moderate colonic stool. Fluid-filled small bowel loops. The findings may represent a mild ileus. 5. Prostatomegaly ACT 112: Negative or not required by law. Electronically signed by: Paul Guy M.D. 07/04/2020 6:31 PM
--- NOTE | 2020-07-04 18:34 | History & Physical Report ---
Date of Service July 04, 2020 Assessment & Plan (1) Septic shock: 2nd to urena-catheter associated UTI. Despite copious hydration in ER (3+ L of crystalloid) he remained hypotensive and thus I initiated levophed to maintain MAP >65. He will be admitted to the ICU for ongoing care. Central venous access may be needed. Continue IV zosyn and IV daptomycin. Follow blood and urine cx's. Narrow antibiotics when able. Of note - COVID-19 PCR negative. Continue basal fluids - 100cc/hr. CT abd/pelvis without complicating kidney stone, etc. (2) ATN (acute tubular necrosis): Acute kidney injury likely due to sepsis-associated ATN. Can't rule out component of obstruction from his clogged urena catheter. Either way continue supportive care; keep MAP >65 to maintain renal perfusion. Serial BMPs. (3) Metabolic encephalopathy: 2nd to UTI/sepsis. I am uncertain of his baseline neurocognitive status. Supportive care. Avoid sedatives. (4) Catheter-associated urinary tract infection: Urena exchanged in ER. Broad-spectrum IV antibiotics. Follow cultures. Previous urine cx's with proteus, etc. 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 PT, OT once clinical status improves. (8) Hypercholesteremia: Not on meds for such. (9) Allergic rhinitis: Cont home meds (10) GERD (gastroesophageal reflux disease): pepcid (11) BPH (benign prostatic hyperplasia): Cont dutasteride Resume alpha lonnie once BP will allow Cont urena (12) DVT prophylaxis: heparin 5000 BID Updated Jb Allen, brother, by phone. Jb and his sister have POA status on pt's behalf. We briefly discussed code status for Kevin - Jb & his sister will discuss. total critical care time 60 min including coordinating care with ICU, speaking with family, hypotension management, etc History of Present Illness Chief Complaint: fever, vomiting Primary Care Provider: [facility] 75yo male with chronic indwelling urena catheter, spinocerebellar atrophy, and mild cognitive disorder who presented via EMS from [facility] due to fever, altered mental status, and emesis. Upon arrival to [facility] the patient was hypotensive, tachycardic, and febrile. It was noted by nursing staff that his urena was obstructed. The old urena was removed, and a new urena was placed. He was given broad-spectrum IV antibiotics in the ER and copious hydration for probable severe sepsis due to UTI. By the time of my admission assessment he had already received 3 liters of crystalloid and was on his 4th bag of IVF. Despite such his MAP was only ~60. The patient was considerably altered and lethargic during the visit; thus, I could not obtain any meaningful history or ROS. Allergies Allergy/AdvReac Type Severity Reaction Status Date / Time No Known Allergies Allergy Verified 07/04/20 18:48 Home Medications Home Medications Medication Instructions Recorded Confirmed Type ascorbic acid (vitamin C) 500 mg 500 mg PO DAILY #30 tab 01/27/20 07/04/20 Rx tablet cholecalciferol (vitamin D3) 25 25 mcg PO DAILY #30 cap 01/27/20 07/04/20 Rx mcg (1,000 unit) capsule diclofenac sodium 4 g TOPICAL BID 04/16/20 07/04/20 History diclofenac sodium 4 gm TOPICAL HS 04/16/20 07/04/20 History multivitamin [Daily-Ivan] 1 tab PO DAILY 04/16/20 07/04/20 History fluticasone propionate 1 spray INTRANASAL BID 06/03/20 07/04/20 History dutasteride 0.5 mg capsule 0.5 mg PO DAILY #90 cap 06/14/20 07/04/20 Rx acetaminophen [Arthritis Pain 650 mg PO Q12H PRN MDD 3 GMS 07/04/20 07/04/20 History Reliever] APAP/24 HOURS diclofenac sodium 2 g TOPICAL QID PRN 07/04/20 07/04/20 History docusate sodium 100 mg PO 3XWK 07/04/20 07/04/20 History food supplemt, lactose-reduced 1 ea PO DAILY 07/04/20 07/04/20 History [Ensure] nystatin 1 appln TOP TID PRN 07/04/20 07/04/20 History tamsulosin 0.4 mg PO HS 07/04/20 07/04/20 History tizanidine 2 mg PO BID PRN 07/04/20 07/04/20 History Past Med/Surg History Medical History (Updated 07/04/20 @ 23:40 by Олег Aguilar) Allergic rhinitis At high risk for falls Biliary dyskinesia Chronic indwelling Urena catheter Cognitive changes Dependent for wheelchair mobility GERD (gastroesophageal reflux disease) Hypercholesteremia Insomnia Knee pain, right Lumbar pain on palpation Muscle weakness (generalized) Primary cerebellar degeneration Sleep disturbances Urinary symptom or sign Weight loss Surgical History History of cholecystectomy S/P hip replacement Status post hip replacement Family History Sister Breast cancer Other No pertinent family history Denies family history of Ovarian cancer Prostate cancer Myocardial infarction Colorectal cancer Social History (Updated 07/04/20 @ 23:30 by Олег Aguilar) Smoking Status: Unknown if ever smoked Tobacco Type: Cigarettes Hx Alcohol Use: No Hx Substance Use: No Preferred Language: Polish Communication Ability: Effective Beliefs That Will Affect Care: None marital status: Single Current Living Situation: Personal Care Facility Current Living Situation Comment: [facility] current occupational status: disabled How many Children do You have: 0 Feels Safe at Home: Yes caffeine: Yes Dental Care, Regularly: No Physical Activity Frequency: Other Physical Activity Frequency Comment: Unable to exercise due to being disabled. Seatbelt Use: always Sunscreen Use: No Assistive Devices: Glasses Review of Systems Review of Systems: Unobtainable due to cognitive status and Unobtainable due to reduced consciousness Physical Exam Constitutional: + ill appearing, + thin, + cachectic and + altered mental status; + not well developed, + not well nourished and no acute distress Eyes: PERRL ENMT: Mouth: + dry oral mucous membranes Neck: trachea midline, no thyromegaly no tenderness over cervical spine to palpation Respiratory: normal respiratory effort, lungs clear to auscultation Cardiovascular: Rate/Rhythm: regular rhythm and + tachycardic Heart Sounds: normal S1 and normal S2; no murmur Vessels: posterior tibial pulses present and dorsalis pedis pulses present; no JVD Extremities: no edema Gastrointestinal (Abdomen): normal bowel sounds, soft, nontender, no hepatosplenomegaly Musculoskeletal: right knee with OA changes; mild erythema anterior knee; tender to palpation over knee; mild erythema of right ankle and tender to passive ROM Skin: abrasion near right eye; mild erythema overlying right knee; per nursing staff he has decubitus ulcer over left buttock - I did not examine this Neurologic: contracture deformity of right leg with increased tone and hyperreflexia; moves both arms equally; moves left leg easily Psychiatric: Orientation: + not alert and + not oriented x 3 Lymphatic: no cervical lymphadenopathy Results & Data Results & Data ([facility]) Vital Signs (Past 12 Hours) Vital Signs Temp Pulse Resp BP Pulse Ox 07/04/20 17:15 110 H 26 H 120/61 99 07/04/20 17:00 103 H 26 H 106/54 L 100 07/04/20 16:50 101 H 26 H 100 07/04/20 16:32 116 H 30 H 110/53 L 99 07/04/20 16:20 113 H 30 H 99 07/04/20 16:10 39.3 C H 128 H 30 H 95/52 L 97 Laboratory Results Laboratory Results - last 24 hr 07/04/20 07/04/20 07/04/20 16:11 16:11 16:11 WBC 18.50 H RBC 4.33 L Hgb 13.2 L Hct 38.2 L MCV 88.2 MCH 30.5 MCHC 34.6 RDW Std Deviation 46.7 H RDW Coeff of Kendal 14.3 Plt Count 303 MPV 9.0 Immature Gran % (Auto) 0.2 Neut % (Auto) 97.8 Lymph % (Auto) 1.2 [place] % (Auto) 0.8 Eos % (Auto) 0.0 Baso % (Auto) 0.0 Neut # (Auto) 18.08 H Lymph # (Auto) 0.23 L [place] # (Auto) 0.15 Eos # (Auto) 0.00 Baso # (Auto) 0.00 Immature Gran # (Auto) 0.04 H PT 12.4 H INR 1.2 H APTT 25.8 PTT Ratio 0.9 Sodium 138 Potassium 4.4 Chloride 107 Carbon Dioxide 16 L Anion Gap 15.0 H BUN 44 H Creatinine 2.46 H Est Cr Clr Drug Dosing Not Reportable Est GFR ( Amer) 29.0 Est GFR (Non-Af Amer) 25.0 BUN/Creatinine Ratio 17.9 Glucose 150 H Lactate Calcium 8.4 L Magnesium 2.1 Total Bilirubin 1.0 AST 16 ALT 16 Alkaline Phosphatase 90 Total Creatine Kinase 108 CK-MB (CK-2) 1.5 CK/CKMB % Calc 1.4 Troponin I < 0.015 Total Protein 6.9 Albumin 2.8 L Globulin 4.1 H Albumin/Globulin Ratio 0.7 L Procalcitonin Urine Color Urine Appearance Urine pH Ur Specific [place] Urine Protein Urine Glucose (UA) Urine Ketones Urine Blood Urine Nitrite Urine Bilirubin Urine Urobilinogen Ur Leukocyte Esterase Urine WBC (Auto) Urine RBC (Auto) U Hyaline Cast (Auto) U Epithel Cells (Auto) Urine Bacteria (Auto) Urine Yeast Nasal Screen MRSA (PCR) COVID-19 Eval Order COVID-19 PCR 07/04/20 07/04/20 07/04/20 16:11 16:11 16:30 WBC RBC Hgb Hct MCV MCH MCHC RDW Std Deviation RDW Coeff of Kendal Plt Count MPV Immature Gran % (Auto) Neut % (Auto) Lymph % (Auto) [place] % (Auto) Eos % (Auto) Baso % (Auto) Neut # (Auto) Lymph # (Auto) [place] # (Auto) Eos # (Auto) Baso # (Auto) Immature Gran # (Auto) PT INR APTT PTT Ratio Sodium Potassium Chloride Carbon Dioxide Anion Gap BUN Creatinine Est Cr Clr Drug Dosing Est GFR ( Amer) Est GFR (Non-Af Amer) BUN/Creatinine Ratio Glucose Lactate 6.2 H* Calcium Magnesium Total Bilirubin AST ALT Alkaline Phosphatase Total Creatine Kinase CK-MB (CK-2) CK/CKMB % Calc Troponin I Total Protein Albumin Globulin Albumin/Globulin Ratio Procalcitonin 3.04 H Urine Color Urine Appearance Urine pH Ur Specific [place] Urine Protein Urine Glucose (UA) Urine Ketones Urine Blood Urine Nitrite Urine Bilirubin Urine Urobilinogen Ur Leukocyte Esterase Urine WBC (Auto) Urine RBC (Auto) U Hyaline Cast (Auto) U Epithel Cells (Auto) Urine Bacteria (Auto) Urine Yeast Nasal Screen MRSA (PCR) COVID-19 Eval Order Covid19 Done at [facility] COVID-19 PCR 07/04/20 07/04/20 07/04/20 16:30 16:40 19:17 WBC RBC Hgb Hct MCV MCH MCHC RDW Std Deviation RDW Coeff of Kendal Plt Count MPV Immature Gran % (Auto) Neut % (Auto) Lymph % (Auto) [place] % (Auto) Eos % (Auto) Baso % (Auto) Neut # (Auto) Lymph # (Auto) [place] # (Auto) Eos # (Auto) Baso # (Auto) Immature Gran # (Auto) PT INR APTT PTT Ratio Sodium Potassium Chloride Carbon Dioxide Anion Gap BUN Creatinine Est Cr Clr Drug Dosing Est GFR ( Amer) Est GFR (Non-Af Amer) BUN/Creatinine Ratio Glucose Lactate 2.9 H* Calcium Magnesium Total Bilirubin AST ALT Alkaline Phosphatase Total Creatine Kinase CK-MB (CK-2) CK/CKMB % Calc Troponin I Total Protein Albumin Globulin Albumin/Globulin Ratio Procalcitonin Urine Color [place] Urine Appearance Turbid A Urine pH >= 9.0 H Ur Specific [place] 1.012 Urine Protein 3+ H Urine Glucose (UA) Negative Urine Ketones Negative Urine Blood 3+ H Urine Nitrite Positive A Urine Bilirubin Negative Urine Urobilinogen Negative Ur Leukocyte Esterase 3+ H Urine WBC (Auto) >30 H Urine RBC (Auto) 10-30 H U Hyaline Cast (Auto) 1-5 U Epithel Cells (Auto) >30 H Urine Bacteria (Auto) 4+ H Urine Yeast Not Reportable Nasal Screen MRSA (PCR) COVID-19 Eval Order COVID-19 PCR NEGATIVE 07/04/20 07/04/20 19:28 21:45 WBC RBC Hgb Hct MCV MCH MCHC RDW Std Deviation RDW Coeff of Kendal Plt Count MPV Immature Gran % (Auto) Neut % (Auto) Lymph % (Auto) [place] % (Auto) Eos % (Auto) Baso % (Auto) Neut # (Auto) Lymph # (Auto) [place] # (Auto) Eos # (Auto) Baso # (Auto) Immature Gran # (Auto) PT INR APTT PTT Ratio Sodium 141 Potassium 3.7 D Chloride 112 H Carbon Dioxide 21 Anion Gap 9.0 BUN 41 H Creatinine 1.97 H D Est Cr Clr Drug Dosing Not Reportable Est GFR ( Amer) 38.0 Est GFR (Non-Af Amer) 32.7 BUN/Creatinine Ratio 20.9 H Glucose 113 H Lactate Calcium 8.2 L Magnesium Total Bilirubin AST ALT Alkaline Phosphatase Total Creatine Kinase CK-MB (CK-2) CK/CKMB % Calc Troponin I Total Protein Albumin Globulin Albumin/Globulin Ratio Procalcitonin Urine Color Urine Appearance Urine pH Ur Specific [place] Urine Protein Urine Glucose (UA) Urine Ketones Urine Blood Urine Nitrite Urine Bilirubin Urine Urobilinogen Ur Leukocyte Esterase Urine WBC (Auto) Urine RBC (Auto) U Hyaline Cast (Auto) U Epithel Cells (Auto) Urine Bacteria (Auto) Urine Yeast Nasal Screen MRSA (PCR) Pending COVID-19 Eval Order COVID-[address] abd/pelvis: IMPRESSION: 1. No evidence of bowel obstruction. No evidence of free air. 2. No renal, ureteral, or bladder calculi identified. 3. Marked bladder wall thickening. Indwelling Urena catheter. 4. No evidence of acute diverticulitis. No evidence of acute appendicitis. 5. Moderate colonic stool. Fluid-filled small bowel loops. The findings may represent a mild ileus. 5. Prostatomegaly. CT head: IMPRESSION: 1. Motion degraded study 2. Cerebellar atrophy 3. No acute intracranial findings cxr: no infiltrates Code Status & VTE Plan Code Status full code VTE Prophylaxis Plan VTE Prophylaxis will be ordered: Yes Critical Care Time Critical Care Time: Yes Total Critical Care Time: 60 PG Care Time/CCT Total # of Minutes Spent Total Time Spent with Patient: Total time spent is greater than 50% in coordination of care (as documented) at patient's floor/unit and/or counseling patient: Critical Care Time: Yes Total Critical Care Time: 60 Coding Level of Care Code None Diagnoses Septic shock A41.9; R65.21 ATN (acute tubular necrosis) N17.0 Metabolic encephalopathy G93.41 Catheter-associated urinary tract infection T83.511A; N39.0 Indwelling urinary catheter type: indwelling urethral catheter Encounter type: initial encounter Chronic indwelling Urena catheter Z97.8 Mild cognitive disorder F09 Spinocerebellar ataxia G11.8 Hypercholesteremia E78.00 Allergic rhinitis J30.9 Allergic rhinitis trigger: unspecified Allergic rhinitis seasonality: unspecified GERD (gastroesophageal reflux disease) K21.9 Esophagitis presence: esophagitis presence not specified BPH (benign prostatic hyperplasia) N40.0 Lower urinary tract symptom presence: unspecified whether lower urinary tract symptoms present DVT prophylaxis Z29.9 Additional Codes Critical Care Time - Critical Care Time: Yes ([id number]) Time Spent (min) 60 (1) Catheter-associated urinary tract infection Indwelling urinary catheter type: indwelling urethral catheter Encounter type: initial encounter Qualified Code(s): T83.511A - Infection and inflammatory reaction due to indwelling urethral catheter, initial encounter; N39.0 - Urinary tract infection, site not specified (2) Allergic rhinitis Allergic rhinitis trigger: unspecified Allergic rhinitis seasonality: unspecified Qualified Code(s): J30.9 - Allergic rhinitis, unspecified (3) GERD (gastroesophageal reflux disease) Esophagitis presence: esophagitis presence not specified Qualified Code(s): K21.9 - Gastro-esophageal reflux disease without esophagitis (4) BPH (benign prostatic hyperplasia) Lower urinary tract symptom presence: unspecified whether lower urinary tract symptoms present Qualified Code(s): N40.0 - Benign prostatic hyperplasia without lower urinary tract symptoms
[2020-07-04 20:03] LABS: BUN Creatinine Ratio 20.9 (10-20); Blood Urea Nitrogen 41 mg/dl (7-18); Calcium 8.2 mg/dl (8.5-10.1); Carbon Dioxide 21 mmol/L (21-32); Chloride 112 mmol/L (98-107); Est GFR (Non-African American) 32.7; Glucose 113 mg/dl (70-99); Potassium 3.7 mmol/L (3.5-5.1); Sodium 141 mmol/L (136-145)
[2020-07-04] MEDS ORDERED: STAT IV Infusion **Titration per Protocol STA (20:59)
[2020-07-04] MEDS ORDERED: NYSTATIN POWDER 15GM BTL EXT PRN (20:59)
[2020-07-04] MEDS ORDERED: ICU PROTOCOL FOR HYPERGLYCEMIA PRN (20:59)
[2020-07-04] MEDS ORDERED: NOREPINEPHRINE BIT INJ 8 MG in DEXTROSE 5% 500 ML IV SCH (21:00)
--- NOTE | 2020-07-04 21:01 | Critical Care Consultation ---
Date of Consultation July 04, 2020 Assessment & Plan (1) Admitted to intensive care unit: Reason Critically Ill: 75-year-old male with severe sepsis with septic shock from urinary source requiring close hemodynamic monitoring and institution of vasopressor support. NEURO - * CAM ICU: Unable to assess secondary to patient's mental status and question of baseline. * Primary cerebellar degeneration. * Maintain that patient utilizes wheelchair secondary to frequent falls. CARDIAC/VASCULAR - * Hypotension: * Secondary to severe sepsis. * Received appropriate fluid resuscitation in the emergency department. * Continue with IV fluids. * Pressors as needed. * EKG: Sinus Tachycardia @136bpm. No ST/T-wave changes noted. QTc 466ms. * Monitor on telemetry. RESPIRATORY - * No h/o pulmonary disease. * Saturating well on room air. * CXR w/ no acute findings. GI/NUTRITION - * NPO while requiring vasopressor support. * Prophylaxis: Famotidine RENAL/LYTES - * DELORIS: * 2/2 sepsis and hypovolemia. * No significant electrolyte derangements otherwise. * IVF: Normosol R @100mL/hr - * Severe Sepsis 2/2 UTI w/ Chronic Indwelling Ashraf Catheter: * Received appropriate antibiotic coverage in the ED. * h/o Proteus, Corynbact. sp, gamma strep w/ prior UTIs. * Nursing reported increased urine output after catheter change. * Ashraf in place - Strict I&Os. ENDO - * No h/o DM or Thyroid Dz * BSGs per unit protocol. ISS --> gtt per unit policy. HEME - * Stable H&H ID - * Severe sepsis w/ septic shock 2/2 urinary source: * CT demonstrates no acute proximal urological contribution. * Continue w/ IV Zosyn. Deescalate pending cultures/sensitivities. * Received IV Daptomycin in the ED. Will hold for now. * Lactate trending down. * Repeat AM PCT. * COVID 19 - NEGATIVE LINES/IV ACCESS - * PIVs x2 * Ashraf DVT PROPHYLAXIS - * Heparin * SCDs I have personally spent 45 minutes of critical care time in the direct management of this patient. This is a life/limb threatening event. This includes time spent evaluating patient, direct bedside care, chart review, placing orders, interpretation of diagnostic studies, discussion with consultants, patient, and family members, as well as other required patient management activities. This time is exclusive of all separately billable procedures, and teaching time and separate from and in addition to any other critical care service time. Thank you for allowing us to participate in the care of this patient. Please refer to my attending physician's documentation for any further recommendations. (2) Severe sepsis: (3) Septic shock: (4) Urinary tract infection: (5) Urinary retention: (6) Bladder outlet obstruction: (7) Mild cognitive disorder: (8) Falls frequently: (9) Dependent for wheelchair mobility: (10) Primary cerebellar degeneration: Supervising Physician Co-Signing Physician Notes Patient seen and examined. Discussed with critical care STEFAN. Please refer to my progress note from 07/05/2020. 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 Patient currently resides at the [facility] in [facility]. Per discussion with colleagues and documentation, patient was noted to have a fever, vomiting, with concerns for slight altered mental status. Upon arrival in the emergency department, the patient was febrile and tachycardic. His blood pressures were borderline. He was resuscitated with 4 L of normal saline with minimal response of blood pressure. Patient was subsequently placed on Levophed at starting doses. He was covered with broad- spectrum antibiotics to include daptomycin and Zosyn. Blood and urine cultures are pending. Per nursing conversations, removal of previous Ashraf catheter resulted in moderate amount of urine output. CT the head, chest x-ray, and CT abdomen/pelvis demonstrated no acute findings. Patient was noted to have market leukocytosis as well as moderate elevation of lactate and procalcitonin. COVID- 19 testing was negative. Upon arrival in the ICU, the patient is awake and alert. He knows that he is in the hospital. He knows that he lives at [facility]. Otherwise, history of present illness is limited secondary to patient's mental status which appears to be a degree of an acute on chronic situation. Patient does deny any complaints of pain. Specifically, he denies any headaches, dizziness, lightheadedness, chest pain, palpitations, shortness of breath, or abdominal pain. He does remember vomiting prior to arrival in the emergency department. Allergies Allergy/AdvReac Type Severity Reaction Status Date / Time No Known Allergies Allergy Verified 07/04/20 18:48 Home Medications Home Medications Medication Instructions Recorded Confirmed Type ascorbic acid (vitamin C) 500 mg 500 mg PO DAILY #30 tab 01/27/20 07/04/20 Rx tablet cholecalciferol (vitamin D3) 25 25 mcg PO DAILY #30 cap 01/27/20 07/04/20 Rx mcg (1,000 unit) capsule diclofenac sodium 4 g TOPICAL BID 04/16/20 07/04/20 History diclofenac sodium 4 gm TOPICAL HS 04/16/20 07/04/20 History multivitamin [Daily-Ivan] 1 tab PO DAILY 04/16/20 07/04/20 History fluticasone propionate 1 spray INTRANASAL BID 06/03/20 07/04/20 History dutasteride 0.5 mg capsule 0.5 mg PO DAILY #90 cap 06/14/20 07/04/20 Rx acetaminophen [Arthritis Pain 650 mg PO Q12H PRN MDD 3 GMS 07/04/20 07/04/20 History Reliever] APAP/24 HOURS diclofenac sodium 2 g TOPICAL QID PRN 07/04/20 07/04/20 History docusate sodium 100 mg PO 3XWK 07/04/20 07/04/20 History food supplemt, lactose-reduced 1 ea PO DAILY 07/04/20 07/04/20 History [Ensure] nystatin 1 appln TOP TID PRN 07/04/20 07/04/20 History tamsulosin 0.4 mg PO HS 07/04/20 07/04/20 History tizanidine 2 mg PO BID PRN 07/04/20 07/04/20 History Patient History Medical History (Updated 07/04/20 @ 23:40 by Олег Aguilar) Allergic rhinitis At high risk for falls Biliary dyskinesia Chronic indwelling Ashraf catheter Cognitive changes Dependent for wheelchair mobility GERD (gastroesophageal reflux disease) Hypercholesteremia Insomnia Knee pain, right Lumbar pain on palpation Muscle weakness (generalized) Primary cerebellar degeneration Sleep disturbances Urinary symptom or sign Weight loss Surgical History History of cholecystectomy S/P hip replacement Status post hip replacement Family History Sister Breast cancer Other No pertinent family history Denies family history of Ovarian cancer Prostate cancer Myocardial infarction Colorectal cancer Social History (Updated 07/04/20 @ 23:30 by Олег Aguilar) Smoking Status: Unknown if ever smoked Tobacco Type: Cigarettes Hx Alcohol Use: No Hx Substance Use: No Preferred Language: Rwandan Communication Ability: Effective Beliefs That Will Affect Care: None marital status: Single Current Living Situation: Personal Care Facility Current Living Situation Comment: [facility] current occupational status: disabled How many Children do You have: 0 Feels Safe at Home: Yes caffeine: Yes Dental Care, Regularly: No Physical Activity Frequency: Other Physical Activity Frequency Comment: Unable to exercise due to being disabled. Seatbelt Use: always Sunscreen Use: No Assistive Devices: None Review of Systems Review of Systems: A complete 10 point review of systems was reviewed with the patient with pertinent positives and negatives as per history of present illness. All else were negative. Physical Exam Physical Exam: VITAL SIGNS - Vital signs and nursing notes were reviewed. GENERAL - 75-year-old male appearing his stated age who is in no acute distress. SKIN - Without rashes. HEAD - NC/AT. EYES - PERRL with EOMI bilaterally. Sclera anicteric. EARS - No deformities of external structures noted on gross examination bilaterally. NOSE - Midline and without cyanosis. No epistaxis or purulent drainage noted. MOUTH/OROPHARYNX - Without perioral cyanosis. Dried vomit noted around the mouth. Buccal mucosa pink and dry. NECK - Neck with FROM. Supple to palpation. No lymphadenopathy noted. No nuchal rigidity. LUNGS - Chest wall symmetric without accessory muscle use, intercostals retractions, or central cyanosis. Normal vesicular breath sounds CTA B/L. No wheezes, rales, or rhonchi appreciated. CARDIAC - RRR with S1/S2. No murmur, rubs, or gallops appreciated. ABDOMEN - Abdominal contour flat without pulsations or visible masses. BS normoactive all four quadrants. No tenderness, palpable masses, hepatosplenomegaly, or ascites noted. EXTREMITIES - No clubbing or peripheral cyanosis. No pretibial edema present. +3/5 radial, posterior tibial, and dorsalis pedis pulses palpated throughout. Bilateral weakness of the lower extremites. NEUROLOGIC - Cranial nerves II through XII grossly intact. PSYCH -patient is awake and alert to location. He knows that he lives in assisted living. He is able to answer questions regarding his acute health situation. Patient is pleasant and interacts well with examiner. Results & Data Results & Data ([facility]) Vital Signs (Past 12 Hours) Vital Signs Temp Pulse Resp BP Pulse Ox 07/04/20 20:21 37 C 07/04/20 19:45 106 H 26 H 84/47 L 100 07/04/20 19:29 120 H 26 H 92/52 L 100 07/04/20 19:15 108 H 26 H 87/48 L 100 07/04/20 19:00 111 H 26 H 89/50 L 100 07/04/20 18:55 112 H 26 H 94/48 L 100 07/04/20 18:45 110 H 26 H 80/43 L 100 07/04/20 18:36 114 H 26 H 74/42 L 99 07/04/20 18:35 115 H 26 H 76/45 L 99 07/04/20 17:45 109 H 26 H 90/52 L 100 07/04/20 17:30 120 H 26 H 102/69 100 07/04/20 17:15 110 H 26 H 120/61 99 07/04/20 17:00 103 H 26 H 106/54 L 100 07/04/20 16:50 101 H 26 H 100 07/04/20 16:32 116 H 30 H 110/53 L 99 07/04/20 16:20 113 H 30 H 99 07/04/20 16:10 39.3 C H 128 H 30 H 95/52 L 97 Coding Level of Care Code Critical Care 1st 30-74 mins Diagnoses Admitted to intensive care unit Z78.9 Severe sepsis A41.9; R65.20 Septic shock A41.9; R65.21 Urinary tract infection N39.0 Urinary retention R33.9 Bladder outlet obstruction N32.0 Mild cognitive disorder F09 Falls frequently R29.6 Dependent for wheelchair mobility Z99.3 Primary cerebellar degeneration G11.9 Time Spent (min) 45
[2020-07-04] MEDS ORDERED: PATIENT'S HEIGHT AND/OR WEIGHT NEEDED SCH (21:30)
[2020-07-04] MEDS: NORMOSOL-R 1,000 ML IV SCH (21:55)
[2020-07-04] MEDS: PIPERACILLIN/TAZOBACTAM 4.5 GM in DEXTROSE 5% 100 ML IV SCH (21:56)
[2020-07-04] MEDS: FAMOTIDINE 20 MG in SYRINGE 3 ML IV SCH (21:56)
[2020-07-04] MEDS: HEPARIN SOD 5,000 UNIT/0.5 ML VIAL SQ SCH (21:57)
[2020-07-04] MEDS: FLUTICASONE PROPIONATE NA SPR 16 GM BTL SCH (21:58)
[2020-07-05 04:52] LABS: Hematocrit (blood only) 33.2 % (42-52); Hemoglobin 11.4 g/dL (14.0-18.0); Mean Corpuscular Hemoglobin 30.6 pg (25-34); Mean Corpuscular Hgb Conc 34.3 g/dL (32-36); Mean Platelet Volume 8.9 fL (7.4-10.4); Platelet Count 270 K/uL (130-400); RDW Coefficient of Variation 14.6 % (11.5-14.5); RDW Standard Deviation 48.1 fL (36.4-46.3); Red Blood Count 3.73 M/uL (4.7-6.1); White Blood Count 29.19 K/uL (4.8-10.8)
[2020-07-05 05:32] LABS: Blood Urea Nitrogen 31 mg/dl (7-18); Calcium 7.8 mg/dl (8.5-10.1); Carbon Dioxide 23 mmol/L (21-32); Chloride 113 mmol/L (98-107); Est GFR (African American) 75.1; Est GFR (Non-African American) 64.8; Glucose 102 mg/dl (70-99); Magnesium 2.2 mg/dl (1.8-2.4); Phosphorus 3.5 mg/dl (2.5-4.9); Potassium 3.5 mmol/L (3.5-5.1); Sodium 143 mmol/L (136-145)
[2020-07-05 05:41] LABS: Basophils # (auto) 0.02 K/uL (0-0.2); Basophils % (auto) 0.1 %; Dohle Bodies Occasional; Eosinophils # (auto) 0.01 K/uL (0-0.5); Immature Granulocytes # (auto) 0.11 K/uL (0.00-0.02); Immature Granulocytes % (auto) 0.4 %; Lymphocytes # (auto) 0.62 K/uL (1.2-3.4); Lymphocytes % (auto) 2.1 %; Monocytes # (auto) 1.15 K/uL (0.11-0.59); Monocytes % (auto) 3.9 %; Neutrophils # (auto) 27.28 K/uL (1.4-6.5); Neutrophils % (auto) 93.5 %; Toxic Vacuolation 1+
[2020-07-05] MEDS: PIPERACILLIN/TAZOBACTAM 4.5 GM in DEXTROSE 5% 100 ML IV SCH (06:25)
[2020-07-05] MEDS ORDERED: CALCIUM GLUCONATE 10% 2,000 MG in SODIUM CHLORIDE 0.9% 50 ML IV ONE (06:55)
[2020-07-05] MEDS: FLUTICASONE PROPIONATE NA SPR 16 GM BTL SCH ×2 (07:32→20:50)
[2020-07-05] MEDS: AVODART: ORDER AWAITING ACTION SCH ×2 (07:32→14:37)
[2020-07-05] MEDS: MULTIVITAMIN TAB PO SCH (07:33)
[2020-07-05] MEDS: HEPARIN SOD 5,000 UNIT/0.5 ML VIAL SQ SCH ×2 (07:33→20:52)
[2020-07-05] MEDS: FAMOTIDINE 20 MG in SYRINGE 3 ML IV SCH (07:34)
[2020-07-05] MEDS: NORMOSOL-R 1,000 ML IV SCH ×2 (07:34→17:52)
--- NOTE | 2020-07-05 10:37 | Critical Care Progress Note ---
Date of Service July 05, 2020 Assessment & Plan (1) Admitted to intensive care unit: Impression: 75-year-old male with primary cerebellar degeneration resulting in significantly debilitated state and chronic indwelling Ashraf catheter admitted with urosepsis. He was initially brought to the ICU over concerns of hypotension needing pressors however pressors were never initiated. He does have gram-negative bacteremia. His white count remains elevated however he hemodynamically stable. Recommendations: 1. Urosepsis: Await blood cultures and urine culture. The patient is currently day #2 daptomycin and Zosyn. I do not see a clear indication for daptomycin so this will be discontinued. His prior Proteus was sensitive to most antibiotics with the exception of julianna quinolones so we will de-escalate Zosyn down to Rocephin. Additional changes in antimicrobial therapy will depend on culture results as well as sensitivity. 2. Hypotension: This was transient and resolved with fluids. Urosepsis. No indication for invasive hemodynamic monitoring or vasopressor agents at the current time. 3. Acute kidney injury: Suspect ATN: Patient serum creatinine is better this morning. Continue to trend with fluid resuscitation and maintenance of blood pressure. 4. Leukocytosis: Secondary to given the patient's indwelling Ashraf catheter, it may be reasonable to image the kidneys to ensure there is no perinephric abscess should his clinical condition worsen however given his favorable response I think it is reasonable to hold off on imaging for now. 5. Will advance diet as tolerated. Patient appears appropriate to transfer out of the intensive care unit floor under the care of the hospitalist. We will sign off once he leaves the ICU. Feel free to contact us if we can be of additional assistance. (2) Severe sepsis: (3) Septic shock: (4) Urinary tract infection: (5) Urinary retention: (6) Bladder outlet obstruction: (7) Mild cognitive disorder: (8) Falls frequently: (9) Dependent for wheelchair mobility: (10) Primary cerebellar degeneration: Admission and Anticipated Discharge Date Admission Date: July 04, 2020 Subjective Patient is awake and alert. His speech is somewhat garbled. He denies any significant pain. No chest pain or palpitations. He is never required initiation of vasopressor agents and remains hemodynamically stable. Review of Systems Review of Systems: Unobtainable due to cognitive status Physical Exam Physical Exam: VITAL SIGNS - Vital signs and nursing notes were reviewed. GENERAL - 75-year-old male appearing his stated age who is in no acute distress. SKIN - Without rashes. HEAD - NC/AT. EYES - PERRL with EOMI bilaterally. Sclera anicteric. EARS - No deformities of external structures noted on gross examination bilaterally. NOSE - Midline and without cyanosis. No epistaxis or purulent drainage noted. MOUTH/OROPHARYNX - Without perioral cyanosis. Dried vomit noted around the mouth. Buccal mucosa pink and dry. NECK - Neck with FROM. Supple to palpation. No lymphadenopathy noted. No nuchal rigidity. LUNGS - Chest wall symmetric without accessory muscle use, intercostals retractions, or central cyanosis. Normal vesicular breath sounds CTA B/L. No wheezes, rales, or rhonchi appreciated. CARDIAC - RRR with S1/S2. No murmur, rubs, or gallops appreciated. ABDOMEN - Abdominal contour flat without pulsations or visible masses. BS normoactive all four quadrants. No tenderness, palpable masses, hepatosplenomegaly, or ascites noted. EXTREMITIES - No clubbing or peripheral cyanosis. No pretibial edema present. +3/5 radial, posterior tibial, and dorsalis pedis pulses palpated throughout. Bilateral weakness of the lower extremites. NEUROLOGIC - Cranial nerves II through XII grossly intact. PSYCH -patient is awake and alert to location. He knows that he lives in assisted living. He is able to answer questions regarding his acute health situation. Patient is pleasant and interacts well with examiner. Results & Data Results & Data ([facility]) Vital Signs (Past 12 Hours) Vital Signs Temp Pulse Resp BP Pulse Ox 07/05/20 08:00 36.5 C 96 H 16 114/61 100 07/05/20 07:32 99 H 18 114/61 100 07/05/20 06:32 85 15 114/55 L 92 07/05/20 05:32 98 H 16 111/59 L 99 07/05/20 04:32 103 H 16 117/63 100 07/05/20 04:30 36.7 C 100 H 18 107/60 100 07/05/20 03:32 81 20 107/60 100 07/05/20 02:32 85 20 110/52 L 100 07/05/20 01:32 97 H 14 113/54 L 07/05/20 00:28 90 16 109/57 L 100 07/05/20 00:13 36.7 C 97 H 21 112/67 99 07/04/20 23:59 99 H 23 113/60 100 07/04/20 23:43 104 H 15 114/66 99 07/04/20 23:28 95 H 17 102/54 L 100 07/04/20 23:13 101 H 17 118/68 100 07/04/20 22:58 102 H 16 117/94 90 07/04/20 22:43 107 H 19 94/54 L 95 07/04/20 22:40 104 H 21 91 Laboratory Results 07/05/20 04:30 07/05/20 04:30 Blood cultures gram-negative rods 2 out of 2 Urine culture currently pending Diagnostic Findings Chest x-ray independently reviewed. Aerated without focal airspace opacity. No increased interstitial markings. Cardiac and mediastinal silhouettes are unremarkable. Coding Level of Care Code 96457 Subseq Hosp Care Lvl 3 Diagnoses Admitted to intensive care unit Z78.9 Severe sepsis A41.9; R65.20 Septic shock A41.9; R65.21 Urinary tract infection N39.0 Urinary retention R33.9 Bladder outlet obstruction N32.0 Mild cognitive disorder F09 Falls frequently R29.6 Dependent for wheelchair mobility Z99.3 Primary cerebellar degeneration G11.9
[2020-07-05] MEDS: cefTRIAXone SODIUM 1,000 MG in DEXTROSE 5% 50 ML IV SCH (11:52)
--- NOTE | 2020-07-05 15:53 | Hospitalist Progress Note ---
Date of Service July 05, 2020 Assessment & Plan (1) Septic shock: With gram-negative septicemia 2nd to urena-catheter associated UTI. Was hypotensive despite 3 L of normal saline in the ER and was admitted to the ICU for possible vasopressors. He received 1 more liter of Normosol and had improvement of blood pressure. He was never started on vasopressors Blood pressures are now stabilized Procalcitonin elevated at 75. WBC count increased today to 29,000 from 18,000 however he is clinically improved. Remains afebrile. Lactate is now normalized but was elevated at 6 on arrival. MRSA swab of the nose is negative. CT of the abdomen/pelvis was negative. COVID-19 is negative He is mentating well and with good urine output Growing gram-negative bacilli in both urine and 2/2 sets of blood cultures -Discontinued IV Zosyn and daptomycin in favor of narrowing antibiotics down to Rocephin -Follow blood and urine cx's. -Repeat blood cultures now to ensure stability after 24 hours since the first -Stable for downgrade out of ICU -Okay to restart home tamsulosin as blood pressures are normal -Urena catheter was exchanged on the day of admission-consult urology as per review of urology records, he never had a significantly abnormal PVR or cystoscopy. Question if indwelling Urena catheter is absolutely necessary given that he is having severe infection secondary to it. (2) ATN (acute tubular necrosis): Acute kidney injury likely due to sepsis-associated ATN. Can't rule out component of obstruction from his clogged urena catheter. Creatinine now improved from 1.97 down to 1.12 with IV fluid hydration and replacement of Urena catheter -Follow BMP in the morning -Renally dose medications (3) Metabolic encephalopathy: 2nd to UTI/sepsis. Now resolved Sister at the bedside reports he is back to his baseline (4) Catheter-associated urinary tract infection: Urena exchanged in ER. 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 PT, OT once clinical status improves. Continue tizanidine as needed muscle spasms Continue Voltaren gel to various joints including knees shoulder and back for chronic pain (8) Hypercholesteremia: Not on meds for such. (9) Allergic rhinitis: Cont home nasal spray (10) GERD (gastroesophageal reflux disease): pepcid will be discontinued as he is out of the ICU He does not take anything for this at home (11) BPH (benign prostatic hyperplasia): Cont dutasteride We will resume tamsulosin Currently with Urena catheter in place, urology consultation as above (12) DVT prophylaxis: heparin 5000 BID Updated sister at the bedside His brother, Jb, and his sister have POA status on pt's behalf. Full code Disposition-transfer from ICU downgrade to PCU Admission and Anticipated Discharge Date Admission Date: July 04, 2020 Subjective Patient feeling much better, blood pressures normalized and was never started on Levophed last night. He denies any abdominal pains or back pain. No chest pains or shortness of breath. He is tolerating regular diet. His antibiotics were changed to ceftriaxone only today and shore man asked that he be downgraded from the ICU. Review of Systems Review of Systems: All systems reviewed & are unremarkable except as noted in HPI & below Physical Exam Constitutional: + thin; no acute distress Eyes: + anicteric sclerae Neck: trachea midline, no thyromegaly Respiratory: normal respiratory effort, lungs clear to auscultation Cardiovascular: RRR, no murmur, no edema Chest (Breasts): Chest: normal inspection of chest Gastrointestinal (Abdomen): normal bowel sounds, soft, nontender, no hepatosplenomegaly Musculoskeletal: Extremities: extremities normal to inspection; no cyanosis and no clubbing Skin: no rashes, warm and dry Neurologic: moves all extremities and awake; no focal motor deficits (With generalized atrophy of all muscle groups) Speech / Cognition: + abnormal speech (Jumbled speech at times which is his baseline as per sister at the bedside) Motor/Sensory: no tremor Psychiatric: A+Ox3, euthymic affect Genitourinary: Urena catheter in place draining yellow urine with some sediment Lymphatic: no lymphedema Results & Data Results & Data ([facility]) Vital Signs (Past 12 Hours) Vital Signs Temp Pulse Resp BP Pulse Ox 07/05/20 12:00 101 H 17 110/60 100 07/05/20 11:00 102 H 16 115/53 L 99 07/05/20 10:00 103 H 16 114/52 L 97 07/05/20 09:00 96 H 17 117/55 L 100 07/05/20 08:00 36.5 C 96 H 16 114/61 100 07/05/20 07:32 99 H 18 114/61 100 07/05/20 06:32 85 15 114/55 L 92 07/05/20 05:32 98 H 16 111/59 L 99 07/05/20 04:32 103 H 16 117/63 100 07/05/20 04:30 36.7 C 100 H 18 107/60 100 Laboratory Results 07/05/20 07/05/20 07/05/20 Range/Units 04:30 04:30 04:30 WBC 29.19 H D (4.8-10.8) K/uL RBC 3.73 L (4.7-6.1) M/uL Hgb 11.4 L (14.0-18.0) g/dL Hct 33.2 L (42-52) % MCV 89.0 (80-100) fL MCH 30.6 (25-34) pg MCHC 34.3 (32-36) g/dL RDW Std Deviation 48.1 H (36.4-46.3) fL RDW Coeff of Kendal 14.6 H (11.5-14.5) % Plt Count 270 (130-400) K/uL MPV 8.9 (7.4-10.4) fL Immature Gran % (Auto) 0.4 % Neut % (Auto) 93.5 % Lymph % (Auto) 2.1 % Cook % (Auto) 3.9 % Eos % (Auto) 0.0 % Baso % (Auto) 0.1 % Neut # (Auto) 27.28 H (1.4-6.5) K/uL Lymph # (Auto) 0.62 L (1.2-3.4) K/uL Cook # (Auto) 1.15 H (0.11-0.59) K/uL Eos # (Auto) 0.01 (0-0.5) K/uL Baso # (Auto) 0.02 (0-0.2) K/uL Immature Gran # (Auto) 0.11 H (0.00-0.02) K/uL Toxic Vacuolation 1+ Dohle Bodies Occasional Sodium 143 (136-145) mmol/L Potassium 3.5 (3.5-5.1) mmol/L Chloride 113 H (98-107) mmol/L Carbon Dioxide 23 (21-32) mmol/L Anion Gap 7.0 (3-11) BUN 31 H (7-18) mg/dl Creatinine 1.12 D (0.6-1.4) mg/dl Est Cr Clr Drug Dosing Not Reportable Est GFR ( Amer) 75.1 Est GFR (Non-Af Amer) 64.8 BUN/Creatinine Ratio 28.0 H (10-20) Glucose 102 H (70-99) mg/dl Lactate (0.4-2.0) mmol/L Calcium 7.8 L (8.5-10.1) mg/dl Phosphorus 3.5 (2.5-4.9) mg/dl Magnesium 2.2 (1.8-2.4) mg/dl Procalcitonin 75.54 H (0-0.5) ng/ml Nasal Screen MRSA (PCR) (Negative) 07/04/20 07/04/20 07/04/20 Range/Units 23:38 21:45 19:28 WBC (4.8-10.8) K/uL RBC (4.7-6.1) M/uL Hgb (14.0-18.0) g/dL Hct (42-52) % MCV (80-100) fL MCH (25-34) pg MCHC (32-36) g/dL RDW Std Deviation (36.4-46.3) fL RDW Coeff of Kendal (11.5-14.5) % Plt Count (130-400) K/uL MPV (7.4-10.4) fL Immature Gran % (Auto) % Neut % (Auto) % Lymph % (Auto) % [place] % (Auto) % Eos % (Auto) % Baso % (Auto) % Neut # (Auto) (1.4-6.5) K/uL Lymph # (Auto) (1.2-3.4) K/uL [place] # (Auto) (0.11-0.59) K/uL Eos # (Auto) (0-0.5) K/uL Baso # (Auto) (0-0.2) K/uL Immature Gran # (Auto) (0.00-0.02) K/uL Toxic Vacuolation Dohle Bodies Sodium 141 (136-145) mmol/L Potassium 3.7 D (3.5-5.1) mmol/L Chloride 112 H (98-107) mmol/L Carbon Dioxide 21 (21-32) mmol/L Anion Gap 9.0 (3-11) BUN 41 H (7-18) mg/dl Creatinine 1.97 H D (0.6-1.4) mg/dl Est Cr Clr Drug Dosing Not Reportable Est GFR ( Amer) 38.0 Est GFR (Non-Af Amer) 32.7 BUN/Creatinine Ratio 20.9 H (10-20) Glucose 113 H (70-99) mg/dl Lactate 1.7 (0.4-2.0) mmol/L Calcium 8.2 L (8.5-10.1) mg/dl Phosphorus (2.5-4.9) mg/dl Magnesium (1.8-2.4) mg/dl Procalcitonin (0-0.5) ng/ml Nasal Screen MRSA (PCR) Negative (Negative) 07/04/20 Range/Units 19:17 WBC (4.8-10.8) K/uL RBC (4.7-6.1) M/uL Hgb (14.0-18.0) g/dL Hct (42-52) % MCV (80-100) fL MCH (25-34) pg MCHC (32-36) g/dL RDW Std Deviation (36.4-46.3) fL RDW Coeff of Kendal (11.5-14.5) % Plt Count (130-400) K/uL MPV (7.4-10.4) fL Immature Gran % (Auto) % Neut % (Auto) % Lymph % (Auto) % Cook % (Auto) % Eos % (Auto) % Baso % (Auto) % Neut # (Auto) (1.4-6.5) K/uL Lymph # (Auto) (1.2-3.4) K/uL Cook # (Auto) (0.11-0.59) K/uL Eos # (Auto) (0-0.5) K/uL Baso # (Auto) (0-0.2) K/uL Immature Gran # (Auto) (0.00-0.02) K/uL Toxic Vacuolation Dohle Bodies Sodium (136-145) mmol/L Potassium (3.5-5.1) mmol/L Chloride (98-107) mmol/L Carbon Dioxide (21-32) mmol/L Anion Gap (3-11) BUN (7-18) mg/dl Creatinine (0.6-1.4) mg/dl Est Cr Clr Drug Dosing Est GFR ( Amer) Est GFR (Non-Af Amer) BUN/Creatinine Ratio (10-20) Glucose (70-99) mg/dl Lactate 2.9 H* (0.4-2.0) mmol/L Calcium (8.5-10.1) mg/dl Phosphorus (2.5-4.9) mg/dl Magnesium (1.8-2.4) mg/dl Procalcitonin (0-0.5) ng/ml Nasal Screen MRSA (PCR) (Negative) Urine culture with gram-negative rods 2 out of 2 blood culture sets with gram-negative rods PG Care Time/CCT Total # of Minutes Spent Total Time Spent with Patient: Total time spent is greater than 50% in coordination of care (as documented) at patient's floor/unit and/or counseling patient: Coding Level of Care Code 72114 Subseq Hosp Care Lvl 3 Diagnoses Septic shock A41.9; R65.21 ATN (acute tubular necrosis) N17.0 Metabolic encephalopathy G93.41 Catheter-associated urinary tract infection T83.511A; N39.0 Encounter type: initial encounter Indwelling urinary catheter type: indwelling urethral catheter Chronic indwelling Urena catheter Z97.8 Mild cognitive disorder F09 Spinocerebellar ataxia G11.8 Hypercholesteremia E78.00 Allergic rhinitis J30.9 Allergic rhinitis seasonality: unspecified Allergic rhinitis trigger: unspecified GERD (gastroesophageal reflux disease) K21.9 Esophagitis presence: esophagitis presence not specified BPH (benign prostatic hyperplasia) N40.0 Lower urinary tract symptom presence: unspecified whether lower urinary tract symptoms present DVT prophylaxis Z29.9 (1) BPH (benign prostatic hyperplasia) Lower urinary tract symptom presence: unspecified whether lower urinary tract symptoms present Qualified Code(s): N40.0 - Benign prostatic hyperplasia without lower urinary tract symptoms (2) Catheter-associated urinary tract infection Encounter type: initial encounter Indwelling urinary catheter type: indwelling urethral catheter Qualified Code(s): T83.511A - Infection and inflammatory reaction due to indwelling urethral catheter, initial encounter; N39.0 - Urinary tract infection, site not specified (3) GERD (gastroesophageal reflux disease) Esophagitis presence: esophagitis presence not specified Qualified Code(s): K21.9 - Gastro-esophageal reflux disease without esophagitis (4) Allergic rhinitis Allergic rhinitis seasonality: unspecified Allergic rhinitis trigger: unspecified Qualified Code(s): J30.9 - Allergic rhinitis, unspecified
--- NOTE | 2020-07-05 17:38 | Electrocardiogram Report ---
Test Reason : Blood Pressure : / mmHG Vent. Rate : 136 BPM Atrial Rate : 136 BPM P-R Int : 116 ms QRS Dur : 080 ms QT Int : 310 ms P-R-T Axes : 074 046 031 degrees QTc Int : 466 ms Sinus tachycardia Otherwise normal ECG When compared with ECG of 16-APR-2020 00:56, Premature supraventricular complexes are no longer Present Vent. rate has increased BY 46 BPM Confirmed by Anthony Guo ([id number]) on 07/05/2020 5:38:12 PM Referred By: [facility] Confirmed By:Ender Guo
[2020-07-05] MEDS ORDERED: DICLOFENAC SOD 1% GEL 100 GM TUBE EXT PRN (17:50)
[2020-07-05] MEDS ORDERED: DAPTOmycin 350 MG in SYRINGE 0 ML IV SCH (19:00)
[2020-07-05] MEDS: DICLOFENAC SOD 1% GEL 100 GM TUBE EXT SCH ×2 (20:51→20:52)
[2020-07-05] MEDS: TAMSULOSIN HCL 0.4 MG CAP PO SCH (20:53)
[2020-07-06] MEDS: AVODART: ORDER AWAITING ACTION SCH ×3 (00:03→17:22)
[2020-07-06] MEDS: NORMOSOL-R 1,000 ML IV SCH (03:52)
[2020-07-06 05:44] LABS: BUN Creatinine Ratio 36.8 (10-20); Basophils # (auto) 0.02 K/uL (0-0.2); Basophils % (auto) 0.2 %; Calcium 7.6 mg/dl (8.5-10.1); Creatinine Clr Calc Pharmacy 89.8 ml/min; Eosinophils # (auto) 0.05 K/uL (0-0.5); Eosinophils % (auto) 0.5 %; Est GFR (African American) 117.2; Est GFR (Non-African American) 101.1; Hematocrit (blood only) 34.7 % (42-52); Hemoglobin 11.5 g/dL (14.0-18.0); Immature Granulocytes # (auto) 0.02 K/uL (0.00-0.02); Immature Granulocytes % (auto) 0.2 %; Lymphocytes # (auto) 0.64 K/uL (1.2-3.4); Lymphocytes % (auto) 5.8 %; Mean Corpuscular Hemoglobin 29.6 pg (25-34); Mean Corpuscular Hgb Conc 33.1 g/dL (32-36); Mean Corpuscular Volume 89.2 fL (80-100); Mean Platelet Volume 9.2 fL (7.4-10.4); Monocytes # (auto) 0.71 K/uL (0.11-0.59); Monocytes % (auto) 6.5 %; Neutrophils # (auto) 9.54 K/uL (1.4-6.5); Neutrophils % (auto) 86.8 %; Platelet Count 260 K/uL (130-400); Potassium 3.1 mmol/L (3.5-5.1); RDW Coefficient of Variation 14.4 % (11.5-14.5); RDW Standard Deviation 47.2 fL (36.4-46.3); Red Blood Count 3.89 M/uL (4.7-6.1); White Blood Count 10.98 K/uL (4.8-10.8)
[2020-07-06] MEDS: FLUTICASONE PROPIONATE NA SPR 16 GM BTL SCH ×2 (08:03→21:53)
[2020-07-06] MEDS: CHOLECALCIFEROL 1,000 UNITS 25 MCG TAB PO SCH (08:03)
[2020-07-06] MEDS: ASCORBIC ACID 500 MG TAB PO SCH (08:03)
--- NOTE | 2020-07-06 08:50 | Urology Consultation ---
Date of Consultation July 06, 2020 Assessment & Plan (1) BPH (benign prostatic hyperplasia): Assessment Patient with urosepsis indwelling Ashraf catheter Catheter can be removed and patient given a voiding trial If he is able to void we will check a postvoid residual and as long as it is under 250 cc it is acceptable If he is unable to void or his postvoid residuals are greater than 250 cc I would replace the Ashraf catheter. History of Present Illness Attending Physician: Parisa Olivier MD History of Present Illness Patient is a 75-year-old white male with an indwelling Ashraf catheter. Admitted to the hospital with urosepsis Currently is afebrile vital signs are stable Patient says that before for he had the catheter he was voiding on his own Note from our office shows a postvoid residual of 161 cc which is acceptable Had a cystoscopic exam done which showed some prostate obstruction with bilateral kissing lobes Bladder showed some minor trabeculation Patient is a little bit difficult to get an accurate history from due to his mild communication difficulties Allergies Allergy/AdvReac Type Severity Reaction Status Date / Time No Known Allergies Allergy Verified 07/04/20 18:48 Home Medications Home Medications Medication Instructions Recorded Confirmed Type ascorbic acid (vitamin C) 500 mg 500 mg PO DAILY #30 tab 01/27/20 07/04/20 Rx tablet cholecalciferol (vitamin D3) 25 25 mcg PO DAILY #30 cap 01/27/20 07/04/20 Rx mcg (1,000 unit) capsule diclofenac sodium 4 g TOPICAL BID 04/16/20 07/04/20 History diclofenac sodium 4 gm TOPICAL HS 04/16/20 07/04/20 History multivitamin [Daily-Ivan] 1 tab PO DAILY 04/16/20 07/04/20 History fluticasone propionate 1 spray INTRANASAL BID 06/03/20 07/04/20 History dutasteride 0.5 mg capsule 0.5 mg PO DAILY #90 cap 06/14/20 07/04/20 Rx acetaminophen [Arthritis Pain 650 mg PO Q12H PRN MDD 3 GMS 07/04/20 07/04/20 History Reliever] APAP/24 HOURS diclofenac sodium 2 g TOPICAL QID PRN 07/04/20 07/04/20 History docusate sodium 100 mg PO 3XWK 07/04/20 07/04/20 History food supplemt, lactose-reduced 1 ea PO DAILY 07/04/20 07/04/20 History [Ensure] nystatin 1 appln TOP TID PRN 07/04/20 07/04/20 History tamsulosin 0.4 mg PO HS 07/04/20 07/04/20 History tizanidine 2 mg PO BID PRN 07/04/20 07/04/20 History Patient History Medical History (Updated 07/04/20 @ 23:40 by Олег Aguilar) Allergic rhinitis At high risk for falls Biliary dyskinesia Chronic indwelling Ashraf catheter Cognitive changes Dependent for wheelchair mobility GERD (gastroesophageal reflux disease) Hypercholesteremia Insomnia Knee pain, right Lumbar pain on palpation Muscle weakness (generalized) Primary cerebellar degeneration Sleep disturbances Urinary symptom or sign Weight loss Surgical History History of cholecystectomy S/P hip replacement Status post hip replacement Family History Sister Breast cancer Other No pertinent family history Denies family history of Ovarian cancer Prostate cancer Myocardial infarction Colorectal cancer Social History (Updated 07/04/20 @ 23:30 by Олег Aguilar) Smoking Status: Unknown if ever smoked Tobacco Type: Cigarettes Hx Alcohol Use: No Hx Substance Use: No Preferred Language: Slovenian Communication Ability: Effective Beliefs That Will Affect Care: None marital status: Single Current Living Situation: Personal Care Facility Current Living Situation Comment: [facility] current occupational status: disabled How many Children do You have: 0 Feels Safe at Home: Yes caffeine: Yes Dental Care, Regularly: No Physical Activity Frequency: Other Physical Activity Frequency Comment: Unable to exercise due to being disabled. Seatbelt Use: always Sunscreen Use: No Assistive Devices: None Review of Systems Constitutional: + weight loss Genitourinary: + difficulty urinating Physical Exam Physical Exam: Constitutional Patient cachectic In no acute distress, Neuro/psych Cognitive disability Skin Normal color Normal turgor No rashes Warm and Dry Neck Normal visual inspection Pulmonary Normal rhythm and effort No respiratory distress No audible wheezes Able to speak in complete sentences Cardiac No peripheral edema Results & Data ([facility]) Vital Signs (Past 12 Hours) Vital Signs Temp Pulse Pulse Resp BP BP Pulse Ox 07/06/20 07:31 36.9 C 88 19 112/59 L 98 10/09/20 04:16 37.3 C 18 130/59 L 99 07/06/20 00:03 37.7 C H 92 H 18 123/53 L 97 07/05/20 23:59 105 H Laboratory Results Laboratory Results - last 24 hr 07/06/20 07/06/20 04:54 04:54 WBC 10.98 H RBC 3.89 L Hgb 11.5 L Hct 34.7 L MCV 89.2 MCH 29.6 MCHC 33.1 RDW Std Deviation 47.2 H RDW Coeff of Kendal 14.4 Plt Count 260 MPV 9.2 Immature Gran % (Auto) 0.2 Neut % (Auto) 86.8 Lymph % (Auto) 5.8 [place] % (Auto) 6.5 Eos % (Auto) 0.5 Baso % (Auto) 0.2 Neut # (Auto) 9.54 H Lymph # (Auto) 0.64 L [place] # (Auto) 0.71 H Eos # (Auto) 0.05 Baso # (Auto) 0.02 Immature Gran # (Auto) 0.02 Sodium 145 Potassium 3.1 L Chloride 115 H Carbon Dioxide 24 Anion Gap 6.0 BUN 21 H Creatinine 0.58 L D Est Cr Clr Drug Dosing 89.8 Est GFR ( Amer) 117.2 Est GFR (Non-Af Amer) 101.1 BUN/Creatinine Ratio 36.8 H Glucose 88 Calcium 7.6 L Diagnostic Findings I reviewed the patient's CT scan he is got an enlarged prostate otherwise neg ative in the urinary tracts PG Care Time/CCT Total # of Minutes Spent Total Time Spent with Patient: Total time spent is greater than 50% in coordination of care (as documented) at patient's floor/unit and/or counseling patient: Coding Level of Care Code 12537 Initial Inpt Care Lvl 2 Diagnoses BPH (benign prostatic hyperplasia) N40.0 Lower urinary tract symptom presence: unspecified whether lower urinary tract symptoms present (1) BPH (benign prostatic hyperplasia) Lower urinary tract symptom presence: unspecified whether lower urinary tract symptoms present Qualified Code(s): N40.0 - Benign prostatic hyperplasia without lower urinary tract symptoms
[2020-07-06] MEDS ORDERED: DOCUSATE SODIUM 100 MG CAP PO SCH (09:00)
[2020-07-06] MEDS ORDERED: NON-FORMULARY MEDICATION (Food Supplemt, Lactose-Reduced [Ensure] 1 EA) PO SCH (09:00)
[2020-07-06] MEDS: MULTIVITAMIN TAB PO SCH (10:52)
[2020-07-06] MEDS ORDERED: POTASSIUM CHLORIDE 20 MEQ TABCR PO STA (10:54)
--- NOTE | 2020-07-06 11:15 | Hospitalist Progress Note ---
Date of Service July 06, 2020 Assessment & Plan (1) Septic shock: With gram-negative septicemia, Proteus mirabilis 2nd to urena-catheter associated UTI. Was hypotensive despite 3 L of normal saline in the ER and was admitted to the ICU for possible vasopressors. He received 1 more liter of Normosol and had improvement of blood pressure. He was never started on vasopressors Blood pressures are now stabilized/normal Procalcitonin elevated at 75. WBC count increased to 29,000 from 18,000 but now down to 10k and is clinically improved. Remains afebrile. Lactate is now normalized but was elevated at 6 on arrival. MRSA swab of the nose is negative. CT of the abdomen/pelvis was negative. COVID-19 is negative He is mentating well and with good urine output Growing gram-negative bacilli in both urine and 2/2 sets of blood cultures Ur cx now with Proteus, res to FQs -continue Rocephin for now and convert to cefdinir on discharge x 2 week course total -Follow blood cultures repeated-NGTD -Stable for downgrade out of PCU to med/surg -Urena catheter was exchanged on the day of admission-consult urology as per review of urology records, he never had a significantly abnormal PVR or cystoscopy. Question if indwelling Urena catheter is absolutely necessary given that he is having severe infection secondary to it. Appreciate Urol consultation--> will dc Urena and do TOV and if PVR> 250mL, then replace Urena (2) ATN (acute tubular necrosis): Acute kidney injury likely due to sepsis-associated ATN. Can't rule out component of obstruction from his clogged urena catheter. Creatinine now improved from 1.97 down to 0.5 with IV fluid hydration and replacement of Urena catheter -Follow BMP in the morning -Renally dose medications -dc IVFs (3) Metabolic encephalopathy: 2nd to UTI/sepsis. Now resolved Sister at the bedside reports he is back to his baseline (4) Catheter-associated urinary tract infection: Urena exchanged in ER. 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 PT, OT once clinical status improves. Pt reports he does not take tizanidine for muscle spasms-will dc Continue Voltaren gel to various joints including knees shoulder and back for chronic pain (8) Hypercholesteremia: Not on meds for such. (9) Allergic rhinitis: Cont home nasal spray (10) GERD (gastroesophageal reflux disease): pepcid will be discontinued as he is out of the ICU He does not take anything for this at home (11) BPH (benign prostatic hyperplasia): Cont dutasteride and tamsulosin Urena dc as above (12) Hypokalemia: K+ 3.1 replace with KCl 40meq po x 1 follow BMP in AM (13) DVT prophylaxis: heparin 5000 BID His brother, Jb, and his sister have POA status on pt's behalf. Full code Disposition-transfer from PCU downgrade to med/surgical PT/OT conslts, eventually back to [facility] Admission and Anticipated Discharge Date Admission Date: July 04, 2020 Subjective Pt had pain in RLE when tried to move with PT. Adamant he cannot walk. Is worried about removing Urena catheter as he cannot get up to urinate. Advised to use urinal. No other concerns. Tele with [facility] 90-100s Review of Systems Review of Systems: All systems reviewed & are unremarkable except as noted in HPI & below Physical Exam Constitutional: + thin; no acute distress Eyes: + anicteric sclerae Neck: trachea midline, no thyromegaly Respiratory: normal respiratory effort, lungs clear to auscultation Cardiovascular: RRR, no murmur, no edema Chest (Breasts): Chest: normal inspection of chest Gastrointestinal (Abdomen): normal bowel sounds, soft, nontender, no hepatosplenomegaly Musculoskeletal: Extremities: + extremities abnormal to inspection (atrophy of muscles, contractures of RLE>LLE), no cyanosis and no clubbing Skin: no rashes, warm and dry Neurologic: moves all extremities and awake; no focal motor deficits (With generalized atrophy of all muscle groups) Speech / Cognition: + abnormal speech (Jumbled speech at times which is his baseline as per sister) Motor/Sensory: no tremor Psychiatric: A+Ox3, euthymic affect Genitourinary: Urena in place Lymphatic: no lymphedema Results & Data Results & Data ([facility]) Vital Signs (Past 12 Hours) Vital Signs Temp Pulse Pulse Resp BP BP Pulse Ox 07/06/20 11:09 36.4 C L 85 19 122/63 99 07/06/20 07:31 36.9 C 88 19 112/59 L 98 07/06/20 04:16 37.3 C 18 130/59 L 99 07/06/20 00:03 37.7 C H 92 H 18 123/53 L 97 07/05/20 23:59 105 H Laboratory Results 07/06/20 07/06/20 Range/Units 04:54 04:54 WBC 10.98 H (4.8-10.8) K/uL RBC 3.89 L (4.7-6.1) M/uL Hgb 11.5 L (14.0-18.0) g/dL Hct 34.7 L (42-52) % MCV 89.2 (80-100) fL MCH 29.6 (25-34) pg MCHC 33.1 (32-36) g/dL RDW Std Deviation 47.2 H (36.4-46.3) fL RDW Coeff of Kendal 14.4 (11.5-14.5) % Plt Count 260 (130-400) K/uL MPV 9.2 (7.4-10.4) fL Immature Gran % (Auto) 0.2 % Neut % (Auto) 86.8 % Lymph % (Auto) 5.8 % [place] % (Auto) 6.5 % Eos % (Auto) 0.5 % Baso % (Auto) 0.2 % Neut # (Auto) 9.54 H (1.4-6.5) K/uL Lymph # (Auto) 0.64 L (1.2-3.4) K/uL [place] # (Auto) 0.71 H (0.11-0.59) K/uL Eos # (Auto) 0.05 (0-0.5) K/uL Baso # (Auto) 0.02 (0-0.2) K/uL Immature Gran # (Auto) 0.02 (0.00-0.02) K/uL Sodium 145 (136-145) mmol/L Potassium 3.1 L (3.5-5.1) mmol/L Chloride 115 H (98-107) mmol/L Carbon Dioxide 24 (21-32) mmol/L Anion Gap 6.0 (3-11) BUN 21 H (7-18) mg/dl Creatinine 0.58 L D (0.6-1.4) mg/dl Est Cr Clr Drug Dosing 89.8 ml/min Est GFR ( Amer) 117.2 Est GFR (Non-Af Amer) 101.1 BUN/Creatinine Ratio 36.8 H (10-20) Glucose 88 (70-99) mg/dl Calcium 7.6 L (8.5-10.1) mg/dl PG Care Time/CCT Total # of Minutes Spent Total Time Spent with Patient: Total time spent is greater than 50% in coordination of care (as documented) at patient's floor/unit and/or counseling patient: Coding Level of Care Code 71393 Subseq Hosp Care Lvl 3 Diagnoses Septic shock A41.9; R65.21 ATN (acute tubular necrosis) N17.0 Metabolic encephalopathy G93.41 Catheter-associated urinary tract infection T83.511A; N39.0 Indwelling urinary catheter type: indwelling urethral catheter Encounter type: initial encounter Chronic indwelling Urena catheter Z97.8 Mild cognitive disorder F09 Spinocerebellar ataxia G11.8 Hypercholesteremia E78.00 Allergic rhinitis J30.9 Allergic rhinitis trigger: unspecified Allergic rhinitis seasonality: unspecified GERD (gastroesophageal reflux disease) K21.9 Esophagitis presence: esophagitis presence not specified BPH (benign prostatic hyperplasia) N40.0 Lower urinary tract symptom presence: unspecified whether lower urinary tract symptoms present Hypokalemia E87.6 DVT prophylaxis Z29.9 (1) Catheter-associated urinary tract infection Indwelling urinary catheter type: indwelling urethral catheter Encounter type: initial encounter Qualified Code(s): T83.511A - Infection and inflamm atory reaction due to indwelling urethral catheter, initial encounter; N39.0 - Urinary tract infection, site not specified (2) Allergic rhinitis Allergic rhinitis trigger: unspecified Allergic rhinitis seasonality: unspecified Qualified Code(s): J30.9 - Allergic rhinitis, unspecified (3) GERD (gastroesophageal reflux disease) Esophagitis presence: esophagitis presence not specified Qualified Code(s): K21.9 - Gastro-esophageal reflux disease without esophagitis (4) BPH (benign prostatic hyperplasia) Lower urinary tract symptom presence: unspecified whether lower urinary tract symptoms present Qualified Code(s): N40.0 - Benign prostatic hyperplasia without lower urinary tract symptoms
[2020-07-06] MEDS: HEPARIN SOD 5,000 UNIT/0.5 ML VIAL SQ SCH ×2 (12:28→21:53)
[2020-07-06] MEDS: DICLOFENAC SOD 1% GEL 100 GM TUBE EXT SCH ×3 (12:35→21:54)
[2020-07-06] MEDS ORDERED: ACETAMINOPHEN 325 MG TAB PO PRN (14:00)
[2020-07-06] MEDS: cefTRIAXone SODIUM 1,000 MG in DEXTROSE 5% 50 ML IV SCH (14:43)
[2020-07-06] MEDS ORDERED: DAPTOmycin 350 MG in SYRINGE 0 ML IV SCH (19:00)
[2020-07-06] MEDS: TAMSULOSIN HCL 0.4 MG CAP PO SCH (21:53)
[2020-07-07] MEDS: AVODART: ORDER AWAITING ACTION SCH ×2 (02:08→08:57)
[2020-07-07 08:06] LABS: Basophils # (auto) 0.02 K/uL (0-0.2); Basophils % (auto) 0.2 %; Eosinophils # (auto) 0.22 K/uL (0-0.5); Eosinophils % (auto) 2.4 %; Hematocrit (blood only) 32.5 % (42-52); Hemoglobin 11.4 g/dL (14.0-18.0); Immature Granulocytes # (auto) 0.02 K/uL (0.00-0.02); Immature Granulocytes % (auto) 0.2 %; Lymphocytes # (auto) 0.85 K/uL (1.2-3.4); Lymphocytes % (auto) 9.1 %; Mean Corpuscular Hemoglobin 31.1 pg (25-34); Mean Corpuscular Hgb Conc 35.1 g/dL (32-36); Mean Corpuscular Volume 88.8 fL (80-100); Monocytes # (auto) 1.01 K/uL (0.11-0.59); Monocytes % (auto) 10.8 %; Neutrophils # (auto) 7.23 K/uL (1.4-6.5); Neutrophils % (auto) 77.3 %; Platelet Count 242 K/uL (130-400); RDW Coefficient of Variation 13.9 % (11.5-14.5); RDW Standard Deviation 45.8 fL (36.4-46.3); Red Blood Count 3.66 M/uL (4.7-6.1); White Blood Count 9.35 K/uL (4.8-10.8)
[2020-07-07 08:44] LABS: BUN Creatinine Ratio 27.6 (10-20); Creatinine Clr Calc Pharmacy 104.7 ml/min; Est GFR (African American) 122.6; Est GFR (Non-African American) 105.8; Potassium 3.2 mmol/L (3.5-5.1)
[2020-07-07] MEDS: FLUTICASONE PROPIONATE NA SPR 16 GM BTL SCH (08:58)
[2020-07-07] MEDS: MULTIVITAMIN TAB PO SCH (08:58)
[2020-07-07] MEDS: ASCORBIC ACID 500 MG TAB PO SCH (08:58)
[2020-07-07] MEDS: DICLOFENAC SOD 1% GEL 100 GM TUBE EXT SCH (08:59)
[2020-07-07] MEDS: CHOLECALCIFEROL 1,000 UNITS 25 MCG TAB PO SCH (08:59)
[2020-07-07] MEDS: HEPARIN SOD 5,000 UNIT/0.5 ML VIAL SQ SCH (10:12)
[2020-07-07] MEDS ORDERED: POTASSIUM CHLORIDE 20 MEQ TABCR PO ONE (11:00)
[2020-07-07] MEDS: cefTRIAXone SODIUM 1,000 MG in DEXTROSE 5% 50 ML IV SCH (11:11)
--- NOTE | 2020-07-07 14:28 | Discharge Summary ---
Date of Service July 07, 2020 Admission HPI Per Admitting Provider 75yo male with chronic indwelling urena catheter, spinocerebellar atrophy, and mild cognitive disorder who presented via EMS from [facility] due to fever, altered mental status, and emesis. Upon arrival to [facility] the patient was hypotensive, tachycardic, and febrile. It was noted by nursing staff that his urena was obstructed. The old urena was removed, and a new urena was placed. He was given broad-spectrum IV antibiotics in the ER and copious hydration for probable severe sepsis due to UTI. By the time of my admission assessment he had already received 3 liters of crystalloid and was on his 4th bag of IVF. Despite such his MAP was only ~60. The patient was considerably altered and lethargic during the visit; thus, I could not obtain any meaningful history or ROS. Principal Diagnosis Urena catheter-associated UTI, Proteus septicemia, severe sepsis Discharge Exam Constitutional + thin; no acute distress Eyes + anicteric sclerae Neck trachea midline, no thyromegaly Respiratory normal respiratory effort, lungs clear to auscultation Cardiovascular RRR, no murmur, no edema Chest (Breasts) Chest: normal inspection of chest Gastrointestinal (Abdomen) normal bowel sounds, soft, nontender, no hepatosplenomegaly Musculoskeletal Extremities: + extremities abnormal to inspection (atrophy of muscles, contractures of RLE>LLE), no cyanosis and no clubbing Skin no rashes, warm and dry Neurologic moves all extremities and awake; no focal motor deficits (With generalized atrophy of all muscle groups) Speech / Cognition: + abnormal speech (Jumbled speech at times which is his baseline as per sister) Motor/Sensory: no tremor Psychiatric A+Ox3, euthymic affect Genitourinary Urena in place with dark yellow urine Lymphatic no lymphedema Discharge Data Allergies Allergy/AdvReac Type Severity Reaction Status Date / Time No Known Allergies Allergy Verified 07/04/20 18:48 Consultations 07/04/20 17:36 ED Decision to Admit Stat 07/04/20 20:59 Consult Case Management - Discharge Planning Routine Consult Mail Distribution Scheme Examiner Routine 07/05/20 18:37 Consult Urology Routine Ordered Studies 07/04/20 16:54 CT abd pelvis wo con Stat CT head/brain wo con Stat CXR Hospital Course (1) Septic shock: With gram-negative septicemia, Proteus mirabilis 2nd to urena-catheter associated UTI. Was hypotensive despite 3 L of normal saline in the ER and was admitted to the ICU for possible vasopressors. He received 1 more liter of Normosol and had improvement of blood pressure. He was never started on vasopressors Blood pressures are now stabilized/normal Procalcitonin elevated at 75. WBC count increased to 29,000 from 18,000 but now normal and clinically improved. Remains afebrile. Lactate is now normalized but was elevated at 6 on arrival. MRSA swab of the nose is negative. CT of the abdomen/pelvis was negative. COVID-19 is negative He is mentating well and with good urine output Growing Proteus in both urine and 2/2 sets of blood cultures, resistant to FQs but otherwise pansensitive -received Rocephin x 3 days and converted to cefdinir on discharge x 2 week course total -Follow blood cultures repeated-NGTD for almost 48 hrs prior to discharge -Urena catheter was exchanged on the day of admission-consult urology as per review of urology records, he never had a significantly abnormal PVR or cystoscopy prior to Urena placement. Question if indwelling Urena catheter is absolutely necessary given that he is having severe infection secondary to it. Appreciate Urol consultation--> recommended discontinuing the Urena and do TOV and if PVR> 250mL, then replace Urena Unfortunately, he was unable to void after removal of Urena. He voided 25mL only and was straight cathed for 476mL Urena was replaced again on 07/06 and recommend f/u with Urol again in 2 weeks to see if can have repeat TOV after infection cleared up. (2) ATN (acute tubular necrosis): Acute kidney injury likely due to sepsis-associated ATN. Can't rule out component of obstruction from his clogged urena catheter. Creatinine now improved from 1.97 down to 0.5 with IV fluid hydration and replacement of Urena catheter Resolved (3) Metabolic encephalopathy: 2nd to UTI/sepsis. 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 PT, OT once clinical status improves. continue tizanidine prn for muscle spasms Continue Voltaren gel to various joints including knees shoulder and back for chronic pain (8) Hypercholesteremia: Not on meds for such. (9) Allergic rhinitis: Cont home nasal spray (10) GERD (gastroesophageal reflux disease): He does not take anything for this at home (11) BPH (benign prostatic hyperplasia): Cont dutasteride and tamsulosin Urena as above (12) Hypokalemia: K+ 3.2 and replaced with po KCl (13) DVT prophylaxis: heparin 5000 BID His brother, Jb, and his sister have POA status on pt's behalf. Full code Disposition-stable for dc back to [facility] Total Time Total Time Spent Total Time Spent (In Minutes): 35 min Total Time Includes: Examination of the Patient, Discharge Planning and Medication Reconciliation Discharge Plan Discharge Items Patient Disposition: Personal Skilled Nursing Reason For Visit: UTI, SEVERE SEPSIS/SEPTIC SHOCK Discharge Diagnosis: UTI, Severe sepsis, Septicemia Condition on Discharge: Fair Activity: Resume your previous activity Bathing: No limitations Non-emergency contact: Primary Care Provider and Urologist Call non-emergency contact if: you have any medication questions, your symptoms worsen, your pain is not controlled, your pain is worsening, your pain is unusual for you, your pain is concerning for you, you have a fever and your temperature is above 101 Follow-up/Referrals: Douglas Rodrigues MD [Physician] - (Please follow up within 2 weeks to discuss your continued urinary retention issues and for a possible trial of void to remove the Urena catheter.) [facility] [Primary Care Provider] - Diet: Regular Diet Texture: Easy to Chew Addtl Attending Provider Instructions: You were admitted with a UTI from your Urena catheter and sepsis with bacteria growing in your blood. Please finish out the course of antibiotics with cefdinir twice daily x 11 more days. You had a trial of voiding on your own after removing the Urena catheter, but unfortunately you retained urine again and had to have the catheter replaced. Please follow up with the Urologist in 2 weeks to see if you can have your Urena catheter removed at that time for a repeat trial of void. Pending Studies at Discharge: Yes (Repeat Blood cultures-no growth to date) Stand-Alone Forms: My [facility] Skilled Items Patient informed of condition?: Yes DNR: No Discharge Level of Care: Other Communicable Disease: No Discharge Prognosis: Improving Lines: None Urinary Catheter: Yes Medications and DC Order Prescriptions: New cefdinir 300 mg capsule 300 mg PO BID 11 Days Qty: 22 RF: 0 Continued ascorbic acid (vitamin C) [Vitamin C] 500 mg tablet 500 mg PO DAILY Qty: 30 RF: 5 cholecalciferol (vitamin D3) 25 mcg (1,000 unit) capsule 25 mcg PO DAILY Qty: 30 RF: 5 dutasteride [Avodart] 0.5 mg capsule 0.5 mg PO DAILY Qty: 90 RF: 3 fluticasone propionate 50 mcg/actuation spray,suspension 1 spray intranasal BID RF: 0 Ensure Liquid 1 ea PO DAILY RF: 0 tamsulosin 0.4 mg capsule 0.4 mg PO HS RF: 0 docusate sodium 100 mg capsule 100 mg PO 3XWK RF: 0 nystatin 100,000 unit/gram powder 1 appln TOP TID PRN (Reason: Rash/Irritation) RF: 0 tizanidine 2 mg capsule 2 mg PO BID PRN (Reason: Muscle Spasticity) RF: 0 acetaminophen [Arthritis Pain Reliever] 650 mg Tablet Extended Release 650 mg PO Q12H MDD 3 GMS APAP/24 HOURS PRN (Reason: Fever Or Pain) RF: 0 diclofenac sodium 1 % Gel 2 g TOPICAL QID PRN (Reason: Pain) RF: 0 multivitamin [Daily-Ivan] Tablet 1 tab PO DAILY RF: 0 diclofenac sodium 1 % gel 4 g TOPICAL BID RF: 0 diclofenac sodium 1 % gel 4 gm topical HS RF: 0 Discharge Orders: Discharge Order (Routine); Ordered 07/07/20 Ordered By: Parisa Olivier Admission Data Admit Date/Time: 07/04/20 19:28 Attending Provider: Parisa Olivier Admit Provider: Олег Aguilar Primary Care Provider: JENA ARTIS Other Providers: Олег Aguilar ; Wong Scherer ; Douglas Rodrigues Coding Level of Care Code D/C Day Management >30 mins Diagnoses Septic shock A41.9; R65.21 ATN (acute tubular necrosis) N17.0 Metabolic encephalopathy G93.41 Catheter-associated urinary tract infection T83.511A; N39.0 Indwelling urinary catheter type: unspecified Encounter type: initial encounter Chronic indwelling Urena catheter Z97.8 Mild cognitive disorder F09 Spinocerebellar ataxia G11.8 Hypercholesteremia E78.00 Allergic rhinitis J30.9 Allergic rhinitis trigger: unspecified Allergic rhinitis seasonality: unspecified GERD (gastroesophageal reflux disease) K21.9 Esophagitis presence: esophagitis presence not specified BPH (benign prostatic hyperplasia) N40.0 Lower urinary tract symptom presence: unspecified whether lower urinary tract symptoms present Hypokalemia E87.6 DVT prophylaxis Z29.9
== END 2020-07-07 17:22 | disposition home or self-care (01) | DRG 698 ==
LOC: ED 15:59 → 1E 19:28 → SUATTDRO 19:28 → 1E 20:23 → 2S 07-06 07:03 → 3N 07-06 11:10

== ENCOUNTER 2020-08-13 17:04 | Inpatient (IN) ==
[2020-08-13] MEDS ORDERED: SODIUM CHLORIDE 0.9% 1000ML 1,000 ML IV ONE ×2 (17:14→19:17)
[2020-08-13] MEDS ORDERED: ONDANSETRON INJ 2 MG/ML 2 ML VIAL IV STA (17:14)
--- NOTE | 2020-08-13 17:25 | Emergency Department Note ---
Impression & Plan Sepsis, DELORIS (acute kidney injury), Acute urinary retention, Acute UTI ED Provider Note NAME: JOSE F VITAL AGE: 75 SEX: M : 1945 ARRIVES VIA: Ambulance INFORMANT: [Patient][ems, nurses] ED PROVIDER(S): [Fidel Leon MD] CHIEF COMPLAINT: Vomiting HISTORY OF PRESENT ILLNESS: The patient is a 75-year-old male with cognitive disability. He was in our hospital just over a month ago for urinary sepsis. He presents today with 3 days of vomiting. Today, in addition, his care staff noticed an increased respiratory rate and a higher pulse. The patient denies pain. He is a poor historian though. He does appear to be breathing rapidly although, he is not in significant distress. Given the circumstances, given his cognitive disability, no further history ob tainable. REVIEW OF SYSTEMS: Unobtainable given his cognitive disability. PMHx/PSHx: See Below SOCIAL HISTORY: See Below. PHYSICAL EXAM: GENERAL: Patient is in no acute distress. HEENT: No acute trauma, normocephalic atraumatic, mucous membranes moist, no nasal congestion, no scleral icterus. NECK: No stridor, no adenopathy, no meningismus, trachea is midline. LUNGS: Clear to auscultation, equal breath sounds, he does have an increased respiratory rate, no real respiratory distress. HEART: Tachycardic, regular rhythm, no murmurs. ABDOMEN: Soft, he appears to have a distended bladder to the level of the umbilicus. His bladder does seem tender. EXTREMITIES: No cyanosis, mild bilateral pedal edema, full range of motion of all the joints without pain or difficulty, no signs for acute trauma. NEUROLOGIC: Awake and alert, moves all extremities, cognitive disability noted. Able to answer some yes/no questions SKIN: No rash, no jaundice, no diaphoresis. Groin: He has significant scrotal irritation and excoriation. He has obvious erythema from yeast in his groin and on the scrotum. A Ashraf catheter is in place. The Ashraf bag is empty. DIFFERENTIAL DIAGNOSIS: Dehydration, electrolyte imbalance, urinary retention, UTI, hydronephrosis, urinary obstruction, bowel obstruction, anemia, pneumonia, UTI, sepsis. EMERGENCY DEPARTMENT COURSE/PROCEDURES: Continuous Cardiac Monitoring: An order was placed for continuous cardiac monitoring. The monitor shows a rate of 105 with sinus tachycardia. Critical Care Note: I have personally spent 45 minutes of critical care time in the direct management of this patient. This includes bedside care, interpretation of diagnostic studies, and testing, discussion with consultants, patient, and family members, and other required patient management activities. This 45 minutes is in excess of all separately billable procedures. MEDICAL DECISION MAKING: There is a significant leukocytosis at 24,000, this is consistent with infection. No concerning anemia. The platelet count was slightly elevated. Renal panel testing shows acute kidney injury with a creatinine of 6. Potassium was normal. Lactic acid level was not elevated making severe sepsis less likely. No concerning liver enzyme elevation. Cardiac enzyme testing x1 is not consistent with acute cardiac injury. Cardiac monitoring showed a sinus tachycardia, no acute ischemia by rhythm strip. Urinalysis shows evidence for infection, urine culture is pending. Coronavirus testing returned negative. Chest film did not show pneumonia or CHF. Abdominal and pelvis CT shows significant bladder distention. The Ashraf catheter was in the urethra, not the bladder. There was no bowel obstruction. The patient presents tachycardic and seemed to be breathing rapidly. His bladder seems distended on exam. The nursing staff removed his Ashraf and placed a second Ashraf. Initially, the urine drained fairly well and then seem to stop. When the CT scan showed the Ashraf to be within the urethra, this Ashraf was removed and a new Ashraf inserted. The patient received IV cefepime as empiric antibiotic coverage. He was given IV Zofran for nausea, he received IV saline, 2 L. The patient is in acute renal failure. He appears to have renal failure from urinary retention. He has a UTI and does meet criteria for sepsis. The patient has been aggressively managed. He does seem to be improved compared to how he first presented. I did speak with the case management, the on-call hospitalist was consulted. Past Med/Surg History Medical History Allergic rhinitis At high risk for falls Biliary dyskinesia Catheter-associated urinary tract infection Chronic indwelling Ashraf catheter Cognitive changes Dependent for wheelchair mobility GERD (gastroesophageal reflux disease) Hypercholesteremia Insomnia Knee pain, right Lumbar pain on palpation Muscle weakness (generalized) Primary cerebellar degeneration Sleep disturbances Urinary symptom or sign Surgical History History of cholecystectomy S/P hip replacement Status post hip replacement Family History Sister Breast cancer Other No pertinent family history Denies family history of Ovarian cancer Prostate cancer Myocardial infarction Colorectal cancer Social History Smoking Status: Never smoker Tobacco Type: Cigarettes Hx Alcohol Use: No Hx Substance Use: No Preferred Language: Faroese Communication Ability: Effective Beliefs That Will Affect Care: None marital status: Single Current Living Situation: Group Home Current Living Situation Comment: [facility] current occupational status: disabled How many Children do You have: 0 Other Information That Helps Us Care for You: No Feels Safe at Home: No Safety Concerns: Feels Safe At This Time caffeine: Yes Dental Care, Regularly: No Physical Activity Frequency: Other Physical Activity Frequency Comment: Unable to exercise due to being disabled. Seatbelt Use: always Sunscreen Use: No Assistive Devices: Glasses Allergies Allergies Allergy/AdvReac Type Severity Reaction Status Date / Time No Known Allergies Allergy Verified 08/13/20 20:09 Home Meds Home Medications Medication Instructions Recorded Confirmed diclofenac sodium 4 g TOPICAL BID 04/16/20 08/13/20 diclofenac sodium 4 gm TOPICAL HS 04/16/20 08/13/20 multivitamin [Daily-Ivan] 1 tab PO DAILY 04/16/20 08/13/20 fluticasone propionate 1 spray INTRANASAL BID 06/03/20 08/13/20 Ensure 1 ea PO DAILY 07/04/20 08/13/20 acetaminophen [Arthritis Pain 650 mg PO Q12H PRN MDD 3 GMS 07/04/20 08/13/20 Reliever] APAP/24 HOURS diclofenac sodium 2 g TOPICAL QID PRN 07/04/20 08/13/20 nystatin 1 appln TOP TID PRN 07/04/20 08/13/20 tamsulosin 0.4 mg PO HS 07/04/20 08/13/20 tizanidine 2 mg PO BID PRN 07/04/20 08/13/20 Previous Rx's Medication Instructions Recorded ascorbic acid (vitamin C) 500 mg 500 mg PO DAILY #30 tab 01/27/20 tablet cholecalciferol (vitamin D3) 25 25 mcg PO DAILY #30 cap 01/27/20 mcg (1,000 unit) capsule dutasteride 0.5 mg capsule 0.5 mg PO DAILY #90 cap 06/14/20 docusate sodium 100 mg capsule 100 mg PO DAILY #30 cap 08/13/20 ondansetron HCl 4 mg tablet 4 mg PO Q8H PRN #20 tab 08/13/20 Results & Data (ED) Vital Signs Vital Signs - 24 hr 08/13/20 17:05 08/13/20 17:30 08/13/20 19:00 Temperature 37.5 C Temperature Source Oral Pulse Rate 130 H 95 H Pulse Rate [Right Finger] 112 H Pulse Rate from SpO2 Sensor 97 H Respiratory Rate 20 20 18 Respiratory Effort / Characteristics Non-Labored Respiratory Depth Normal Blood Pressure 116/59 L 117/71 Blood Pressure [Right Arm] 117/57 L Blood Pressure Mean 78 100 Blood Pressure Mean [Right Arm] 77 Pulse Oximetry 96 100 100 Oxygen Delivery Method Room Air Room Air Sepsis Recent Fever Within 48 Hours No Sepsis New/Unexplained Change in Mental Status N/A Sepsis Action Taken by Nursing No Action Required 08/13/20 19:30 Temperature Temperature Source Pulse Rate 115 H Pulse Rate [Right Finger] Pulse Rate from SpO2 Sensor 114 H Respiratory Rate 18 Respiratory Effort / Characteristics Respiratory Depth Blood Pressure 134/71 Blood Pressure [Right Arm] Blood Pressure Mean 97 Blood Pressure Mean [Right Arm] Pulse Oximetry 100 Oxygen Delivery Method Sepsis Recent Fever Within 48 Hours Sepsis New/Unexplained Change in Mental Status Sepsis Action Taken by Group Home Medications Current Medication List: was personally reviewed by me Laboratory Data Attestation: I reviewed the patient's lab results. Result diagrams: 08/13/20 17:45 08/13/20 17:45 Lab Results 08/13/20 08/13/20 08/13/20 Range/Units 17:45 17:45 18:46 WBC 24.47 H (4.8-10.8) K/uL RBC 4.19 L (4.7-6.1) M/uL Hgb 12.6 L (14.0-18.0) g/dL Hct 37.4 L (42-52) % MCV 89.3 (80-100) fL MCH 30.1 (25-34) pg MCHC 33.7 (32-36) g/dL RDW Std Deviation 48.1 H (36.4-46.3) fL RDW Coeff of Kendal 14.6 H (11.5-14.5) % Plt Count 407 H (130-400) K/uL MPV 9.5 (7.4-10.4) fL Immature Gran % (Auto) 0.4 % Neut % (Auto) 89.7 % Lymph % (Auto) 6.0 % [place] % (Auto) 3.9 % Eos % (Auto) 0.0 % Baso % (Auto) 0.0 % Neut # (Auto) 21.94 H (1.4-6.5) K/uL Lymph # (Auto) 1.47 (1.2-3.4) K/uL [place] # (Auto) 0.95 H (0.11-0.59) K/uL Eos # (Auto) 0.00 (0-0.5) K/uL Baso # (Auto) 0.01 (0-0.2) K/uL Immature Gran # (Auto) 0.10 H (0.00-0.02) K/uL Echinocytes 1+ Sodium 143 (136-145) mmol/L Potassium 4.5 (3.5-5.1) mmol/L Chloride 111 H (98-107) mmol/L Carbon Dioxide 19 L (21-32) mmol/L Anion Gap 13.0 H (3-11) BUN 112 H (7-18) mg/dl Creatinine 6.02 H* (0.6-1.4) mg/dl Est Cr Clr Drug Dosing Not Reportable Est GFR ( Amer) 9.8 Est GFR (Non-Af Amer) 8.5 BUN/Creatinine Ratio 18.5 (10-20) Glucose 144 H (70-99) mg/dl Lactate (0.4-2.0) mmol/L Calcium 9.4 (8.5-10.1) mg/dl Phosphorus 6.5 H (2.5-4.9) mg/dl Magnesium 3.3 H (1.8-2.4) mg/dl Total Bilirubin 0.5 (0.2-1) mg/dl AST 22 (15-37) U/L ALT 21 (12-78) U/L Alkaline Phosphatase 71 (45-117) U/L Total Creatine Kinase 192 (39-308) U/L Troponin I < 0.015 (0-0.045) ng/ml Total Protein 8.0 (6.4-8.2) gm/dl Albumin 3.4 (3.4-5.0) gm/dl Globulin 4.6 H (2.5-4.0) gm/dl Albumin/Globulin Ratio 0.7 L (0.9-2) Urine Color Yellow Urine Appearance Turbid A (Clear) Urine pH 8.5 H (4.5-7.5) Ur Specific [place] 1.011 (1.000-1.030) Urine Protein 2+ H (Negative) Urine Glucose (UA) Negative (Negative) Urine Ketones Negative (Negative) Urine Blood 3+ H (Negative) Urine Nitrite Positive A (Negative) Urine Bilirubin Negative (Negative) Urine Urobilinogen Negative (Negative) Ur Leukocyte Esterase 3+ H (Negative) Urine WBC (Auto) >30 H (0-5) /hpf Urine RBC (Auto) >30 H (0-4) /hpf U Hyaline Cast (Auto) 1-5 (0-5) /lpf U Epithel Cells (Auto) 10-20 H (0-5) /lpf Urine Bacteria (Auto) 3+ H (Negative) Urine Yeast Not Reportable 08/13/20 Range/Units 19:06 WBC (4.8-10.8) K/uL RBC (4.7-6.1) M/uL Hgb (14.0-18.0) g/dL Hct (42-52) % MCV (80-100) fL MCH (25-34) pg MCHC (32-36) g/dL RDW Std Deviation (36.4-46.3) fL RDW Coeff of Kendal (11.5-14.5) % Plt Count (130-400) K/uL MPV (7.4-10.4) fL Immature Gran % (Auto) % Neut % (Auto) % Lymph % (Auto) % [place] % (Auto) % Eos % (Auto) % Baso % (Auto) % Neut # (Auto) (1.4-6.5) K/uL Lymph # (Auto) (1.2-3.4) K/uL [place] # (Auto) (0.11-0.59) K/uL Eos # (Auto) (0-0.5) K/uL Baso # (Auto) (0-0.2) K/uL Immature Gran # (Auto) (0.00-0.02) K/uL Echinocytes Sodium (136-145) mmol/L Potassium (3.5-5.1) mmol/L Chloride (98-107) mmol/L Carbon Dioxide (21-32) mmol/L Anion Gap (3-11) BUN (7-18) mg/dl Creatinine (0.6-1.4) mg/dl Est Cr Clr Drug Dosing Est GFR ( Amer) Est GFR (Non-Af Amer) BUN/Creatinine Ratio (10-20) Glucose (70-99) mg/dl Lactate 1.6 (0.4-2.0) mmol/L Calcium (8.5-10.1) mg/dl Phosphorus (2.5-4.9) mg/dl Magnesium (1.8-2.4) mg/dl Total Bilirubin (0.2-1) mg/dl AST (15-37) U/L ALT (12-78) U/L Alkaline Phosphatase (45-117) U/L Total Creatine Kinase (39-308) U/L Troponin I (0-0.045) ng/ml Total Protein (6.4-8.2) gm/dl Albumin (3.4-5.0) gm/dl Globulin (2.5-4.0) gm/dl Albumin/Globulin Ratio (0.9-2) Urine Color Urine Appearance (Clear) Urine pH (4.5-7.5) Ur Specific [place] (1.000-1.030) Urine Protein (Negative) Urine Glucose (UA) (Negative) Urine Ketones (Negative) Urine Blood (Negative) Urine Nitrite (Negative) Urine Bilirubin (Negative) Urine Urobilinogen (Negative) Ur Leukocyte Esterase (Negative) Urine WBC (Auto) (0-5) /hpf Urine RBC (Auto) (0-4) /hpf U Hyaline Cast (Auto) (0-5) /lpf U Epithel Cells (Auto) (0-5) /lpf Urine Bacteria (Auto) (Negative) Urine Yeast Administered Medications Heparin Sodium (Porcine) (Heparin Sod 5,000 Unit/0.5 Ml Vial) 5,000 units SQ Q12 SERA Stop: 09/12/20 22:26 Last Admin: 08/13/20 23:11 Dose: 5,000 units Documented by: [id number] Sodium Chloride (Nss 1000ml) 1,000 mls @ 100 mls/hr IV .Q10H SERA Stop: 08/14/20 18:59 Last Admin: 08/13/20 22:56 Dose: 100 mls/hr Documented by: [id number] Miscellaneous (Avodart: Order Awaiting Action) 1 ea N/A QS SERA Stop: 09/13/20 00:00 Last Admin: 08/13/20 23:36 Dose: Not Given Documented by: [id number] Discontinued Medications Sodium Chloride (Nss 1000ml) 1,000 mls @ 999 mls/hr IV .Q1H1M ONE Stop: 08/13/20 18:14 Last Infusion: 08/13/20 19:51 Dose: 0 mls/hr Documented by: [id number] Admin: 08/13/20 18:50 Dose: 999 mls/hr Documented by: [id number] Cefepime HCl (Maxipime) 2,000 mg in 20 mls @ 5 mls/min IV NOW STA; Protocol Stop: 08/13/20 18:08 Last Admin: 08/13/20 19:07 Dose: 5 mls/min Documented by: [id number] Sodium Chloride (Nss 1000ml) 1,000 mls @ 999 mls/hr IV .Q1H1M ONE Stop: 08/13/20 20:17 Last Infusion: 08/13/20 20:33 Dose: 0 mls/hr Documented by: [id number] Admin: 08/13/20 19:32 Dose: 999 mls/hr Documented by: [id number] Ondansetron HCl (Ondansetron Inj 2 Mg/Ml 2 Ml Vial) 4 mg IV NOW STA Stop: 08/13/20 17:15 Last Admin: 08/13/20 18:50 Dose: 4 mg Documented by: [id number] Imaging Data Radiologist's Impression: XR chest 1V portable CLINICAL HISTORY: Shortness of breath. COMPARISON STUDY: Chest radiograph July 04, 2020. FINDINGS: Lung volumes are at the lower limits of normal. Lungs are clear. There is no pneumothorax or pleural effusion. Cardiac size is normal. Mediastinal co ntours are normal. There is no evidence for pulmonary edema. Incidental note is made of cholecystectomy clips. Skinfolds project over the right hemithorax. IMPRESSION: No acute cardiopulmonary findings. CT OF THE ABDOMEN AND PELVIS WITHOUT CONTRAST CLINICAL HISTORY: poss obstruction, vomiting COMPARISON STUDY: CT of the abdomen and pelvis July 04, 2020. TECHNIQUE: Axial images of the abdomen and pelvis were obtained without IV contrast. Images were reviewed in the axial, sagittal, and coronal planes. Automated exposure control was utilized for the study. A dose lowering technique was utilized adhering to the principles of ALARA. FINDINGS: Evaluation is suboptimal given difficulty positioning. No pneumatosis, free air or portal venous gas is present. Unenhanced images of the liver, spleen, adrenal glands and kidneys are unremarkable. There is no evidence for a bowel obstruction. A moderate to large amount stool within the rectum is noted. Bladder is distended. There is gas within the bladder. Bladder wall thickening is noted with gas also noted within the urethra. Ashraf balloon is malpositioned within the urethra. No abdominal or pelvic lymphadenopathy is identified although sensitivity is diminished on this unenhanced exam. Postoperative findings within the right femur noted. There is severe osteoporosis of the right hip. There is also moderate to severe left hip osteoarthritis. No acute fracture is noted within visualized skeletal structures. No suspicious osseous lesions are noted. IMPRESSION: 1. Malpositioned Ashraf catheter within the urethra. The catheter should be advanced. Distended bladder which contains gas, likely from instrumentation. Bladder wall thickening which be correlated with urinalysis. 2. Moderate to large amount stool within the colon and rectum. No evidence for a bowel obstruction. No free air. 3. Exam compromised given difficulty positioning. Discharge Plan Visit Data Chief Complaint: Vomiting Stated Complaint: VOMITTING ED Provider: Fidel Leon Discharge Problem: Sepsis, DELORIS (acute kidney injury), Acute urinary retention, Acute UTI Patient Disposition: Admitted As Inpatient Condition: Serious Discharge Instructions Interventions: ED Discharge Assessment Last Done: 08/13/20 21:42 Discharge Problem: Sepsis Qualifiers: Sepsis type: sepsis due to unspecified organism Sepsis acute organ dysfunction status: with acute organ dysfunction Severe sepsis acute organ dysfunction type: acute renal failure Acute renal failure type: unspecified Severe sepsis shock status: without septic shock Qualified Code(s): A41.9 - Sepsis, unspecified organism
[2020-08-13 18:01] LABS: Hematocrit (blood only) 37.4 % (42-52); Hemoglobin 12.6 g/dL (14.0-18.0); Mean Corpuscular Hemoglobin 30.1 pg (25-34); Mean Corpuscular Hgb Conc 33.7 g/dL (32-36); Mean Corpuscular Volume 89.3 fL (80-100); Mean Platelet Volume 9.5 fL (7.4-10.4); Platelet Count 407 K/uL (130-400); RDW Coefficient of Variation 14.6 % (11.5-14.5); RDW Standard Deviation 48.1 fL (36.4-46.3); Red Blood Count 4.19 M/uL (4.7-6.1); White Blood Count 24.47 K/uL (4.8-10.8)
--- NOTE | 2020-08-13 18:03 | XRay Report ---
XR chest 1V portable CLINICAL HISTORY: Shortness of breath. COMPARISON STUDY: Chest radiograph July 04, 2020. FINDINGS: Lung volumes are at the lower limits of normal. Lungs are clear. There is no pneumothorax o r pleural effusion. Cardiac size is normal. Mediastinal contours are normal. There is no evidence for pulmonary edema. Incidental note is made of cholecystectomy clips. Skinfolds project over the right hemithorax. IMPRESSION: No acute cardiopulmonary findings. ACT 112: Negative or not required by law. Electronically signed by: David Alfred M.D. 08/13/2020 6:02 PM
[2020-08-13] MEDS ORDERED: CEFEPIME 2,000 MG/20 ML VIAL IV STA (18:05)
[2020-08-13 18:28] LABS: Alanine Aminotransferase 21 U/L (12-78); Albumin Globulin Ratio 0.7 (0.9-2); Albumin Level 3.4 gm/dl (3.4-5.0); Alkaline Phosphatase 71 U/L (45-117); Aspartate Aminotransferase 22 U/L (15-37); BUN Creatinine Ratio 18.5 (10-20); Basophils # (auto) 0.01 K/uL (0-0.2); Bilirubin,Total 0.5 mg/dl (0.2-1); Blood Urea Nitrogen 112 mg/dl (7-18); Calcium 9.4 mg/dl (8.5-10.1); Carbon Dioxide 19 mmol/L (21-32); Chloride 111 mmol/L (98-107); Echinocytes 1+; Est GFR (African American) 9.8; Est GFR (Non-African American) 8.5; Globulin 4.6 gm/dl (2.5-4.0); Glucose 144 mg/dl (70-99); Immature Granulocytes % (auto) 0.4 %; Lymphocytes # (auto) 1.47 K/uL (1.2-3.4); Magnesium 3.3 mg/dl (1.8-2.4); Monocytes # (auto) 0.95 K/uL (0.11-0.59); Monocytes % (auto) 3.9 %; Neutrophils # (auto) 21.94 K/uL (1.4-6.5); Neutrophils % (auto) 89.7 %; Potassium 4.5 mmol/L (3.5-5.1); Sodium 143 mmol/L (136-145); Troponin I < 0.015 ng/ml (0-0.045)
--- NOTE | 2020-08-13 18:34 | CT Scan Report ---
CT OF THE ABDOMEN AND PELVIS WITHOUT CONTRAST CLINICAL HISTORY: poss obstruction, vomiting COMPARISON STUDY: CT of the abdomen and pelvis July 04, 2020. TECHNIQUE: Axial images of the abdomen and pelvis were obtained without IV contrast. Images were revi ewed in the axial, sagittal, and coronal planes. Automated exposure control was utilized for the precious dy. A dose lowering technique was utilized adhering to the principles of ALARA. FINDINGS: Evaluation is suboptimal given difficulty positioning. No pneumatosis, free air or portal v enous gas is present. Unenhanced images of the liver, spleen, adrenal glands and kidneys are unremark able. There is no evidence for a bowel obstruction. A moderate to large amount stool within the rectu m is noted. Bladder is distended. There is gas within the bladder. Bladder wall thickening is noted w ith gas also noted within the urethra. Ashraf balloon is malpositioned within the urethra. No abdomina l or pelvic lymphadenopathy is identified although sensitivity is diminished on this unenhanced exam. Postoperative findings within the right femur noted. There is severe osteoporosis of the right hip. There is also moderate to severe left hip osteoarthritis. No acute fracture is noted within visualize d skeletal structures. No suspicious osseous lesions are noted. IMPRESSION: 1. Malpositioned Ashraf catheter within the urethra. The catheter should be advanced. Distended bladde r which contains gas, likely from instrumentation. Bladder wall thickening which be correlated with u rinalysis. 2. Moderate to large amount stool within the colon and rectum. No evidence for a bowel obstruction. N o free air. 3. Exam compromised given difficulty positioning. ACT 112: Negative or not required by law. Electronically signed by: David Alfred M.D. 08/13/2020 6:32 PM
[2020-08-13 19:02] LABS: Appearance Urine Turbid (Clear); Bacteria Urine Automated 3+ (Negative); Bilirubin Urine Negative (Negative); Blood Urine 3+ (Negative); Color Urine Yellow; Glucose Urine UA Negative (Negative); Ketones Urine Negative (Negative); Leukocyte Esterase Urine 3+ (Negative); Nitrite Urine Positive (Negative); RBC Urine Automated >30 /hpf (0-4); Specific Gravity Urine 1.011 (1.000-1.030); Urobilinogen Urine Negative (Negative); WBC Urine Automated >30 /hpf (0-5); pH Urine 8.5 (4.5-7.5)
[2020-08-13 19:13] LABS: Protein Urine 2+ (Negative); Sulfosalicylic Acid Urine Positive (Negative)
--- NOTE | 2020-08-13 19:56 | History & Physical Report ---
Date of Service August 13, 2020 Assessment & Plan (1) Obstructive uropathy: 75yo presenting with bladder distention, obstructive uropathy s/p Ashraf replacement with immediate return of 800mL urine. Elevated BUN and Cr to 112 and 6.02, respectively, from normal baseline. K is normal, HCO3 slightly low at 19. -Maintain Ashraf catheter -Monitor strict I/Os -Check CK -Avoid nephrotoxic agents -Renal dosing where needed -IVF - NSS at 100mL/hr x 2 liters. Monitor for post-ATN diuresis -Monitor electrolytes and renal function -Consider Nephrology consultation if renal function fails to improve Present on Admission?: Yes (2) DELORIS (acute kidney injury): Elevated BUN and Cr as above in setting of obstructive uropathy -Avoid nephrotoxic agents -Renal dosing where necessary -Monitor BUN, Cr, electrolytes, UOP -BMP q 12 hours Present on Admission?: Yes (3) Urinary tract infection: Follow urinary cultures. Has history of proteus UTI -Continue Cefepime for now -Adjust antibiotic coverage based on sensitivity/specificity Present on Admission?: Yes (4) Nausea & vomiting: Suspect secondary to #1 -Treatment as above -Zofran as needed Present on Admission?: Yes (5) BPH (benign prostatic hyperplasia): Patient with chronic, indwelling Ashraf which was replaced in ER today -Continue Flomax -Continue Avodart -Ashraf care q shift Present on Admission?: Yes (6) Mild cognitive disorder: Noted -Orientation and assistance as needed -Aspiration precautions -Fall precautions F/E/N - NSS at 100mL/hr x 2 liters, monitor BMP q 12 hours, regular diet as tolerated, Ensure Ppx - Heparin for DVT ppx Code - Full (per review of records) Dispo - Admit to medical with telemetry Present on Admission?: Yes History of Present Illness Chief Complaint: Urinary retention Primary Care Provider: ASYA Gonzalez Kevin Allen is a 75yo C male presenting from a skilled nursing with complaints of lethargy, nausea and vomiting as well as decreased po intake. Patient is bedbound and minimally verbal at baseline. He is unable to answer questions or participate in exam. No family or aides at bedside at present. Patient noted to have a distended bladder in the ER. Imaging confirmed malplacement of the Ashraf catheter which was replaced in the ER with appx 1400mL of dark colored cloudy urine. ER Course: Cefepime, Zofran, NSS x 2L Allergies Allergy/AdvReac Type Severity Reaction Status Date / Time No Known Allergies Allergy Verified 08/13/20 20:09 Home Medications Medication Instructions Recorded Confirmed Type ascorbic acid (vitamin C) 500 mg 500 mg PO DAILY #30 tab 01/27/20 08/13/20 Rx tablet cholecalciferol (vitamin D3) 25 25 mcg PO DAILY #30 cap 01/27/20 08/13/20 Rx mcg (1,000 unit) capsule diclofenac sodium 4 g TOPICAL BID 04/16/20 08/13/20 History diclofenac sodium 4 gm TOPICAL HS 04/16/20 08/13/20 History multivitamin [Daily-Ivan] 1 tab PO DAILY 04/16/20 08/13/20 History fluticasone propionate 1 spray INTRANASAL BID 06/03/20 08/13/20 History dutasteride 0.5 mg capsule 0.5 mg PO DAILY #90 cap 06/14/20 08/13/20 Rx Ensure 1 ea PO DAILY 07/04/20 08/13/20 History acetaminophen [Arthritis Pain 650 mg PO Q12H PRN MDD 3 GMS 07/04/20 08/13/20 History Reliever] APAP/24 HOURS diclofenac sodium 2 g TOPICAL QID PRN 07/04/20 08/13/20 History nystatin 1 appln TOP TID PRN 07/04/20 08/13/20 History tamsulosin 0.4 mg PO HS 07/04/20 08/13/20 History tizanidine 2 mg PO BID PRN 07/04/20 08/13/20 History docusate sodium 100 mg capsule 100 mg PO DAILY #30 cap 08/13/20 08/13/20 Rx ondansetron HCl 4 mg tablet 4 mg PO Q8H PRN #20 tab 08/13/20 08/13/20 Rx Past Med/Surg History Medical History (Updated 08/13/20 @ 22:31 by Lilo Lawson DO) Allergic rhinitis At high risk for falls Biliary dyskinesia Catheter-associated urinary tract infection Chronic indwelling Ashraf catheter Cognitive changes Dependent for wheelchair mobility GERD (gastroesophageal reflux disease) Hypercholesteremia Insomnia Knee pain, right Lumbar pain on palpation Muscle weakness (generalized) Primary cerebellar degeneration Sleep disturbances Urinary symptom or sign Surgical History History of cholecystectomy S/P hip replacement Status post hip replacement Family History Sister Breast cancer Other No pertinent family history Denies family history of Ovarian cancer Prostate cancer Myocardial infarction Colorectal cancer Social History Smoking Status: Unknown if ever smoked Tobacco Type: Cigarettes Hx Alcohol Use: No Hx Substance Use: No Preferred Language: Faroese Communication Ability: Effective Beliefs That Will Affect Care: None marital status: Single Current Living Situation: Personal Care Facility Current Living Situation Comment: [facility] [place] current occupational status: disabled How many Children do You have: 0 Feels Safe at Home: Yes caffeine: Yes Dental Care, Regularly: No Physical Activity Frequency: Other Physical Activity Frequency Comment: Unable to exercise due to being disabled. Seatbelt Use: always Sunscreen Use: No Assistive Devices: Glasses Review of Systems Review of Systems: Unobtainable due to cognitive status Physical Exam Physical Exam: General: patient resting comfortably, chronically ill in appearance, NAD, does not answer questions or follow commands. Skin: warm, dry, intact, no rashes or lesions HEENT: NC/AT, PERRL, anicteric sclera, conjunctiva without injection, external ear normal to inspection and nontender, nares patent, dry mucus membranes, dentition intact, no oropharyngeal lesions, neck supple, trachea midline, no LAD, no thyromegaly, no JVD Heart: +S1/S2, regular, tachycardic, no m/r/g Lungs: equal air entry bilaterally, no rales/rhonchi/wheezes Abd: +BS, soft, NT/ND, no masses/organomegaly/ascites, Ashraf in place with 1400mL dark urine Ext: warm, 2+ pulses in UE/LE bilaterally, no clubbing/cyanosis or edema Neuro: patient does not answer questions or follow commands Results & Data Results & Data ([facility]) Vital Signs (Past 12 Hours) Vital Signs Temp Pulse Pulse Resp BP BP Pulse Ox 08/13/20 17:30 112 H 20 117/57 L 100 08/13/20 17:05 37.5 C 130 H 20 116/59 L 96 Laboratory Results Lab Results 1108/13/20 08/13/20 Range/Units 17:45 17:45 18:46 WBC 24.47 H (4.8-10.8) K/uL RBC 4.19 L (4.7-6.1) M/uL Hgb 12.6 L (14.0-18.0) g/dL Hct 37.4 L (42-52) % MCV 89.3 (80-100) fL MCH 30.1 (25-34) pg MCHC 33.7 (32-36) g/dL RDW Std Deviation 48.1 H (36.4-46.3) fL RDW Coeff of Kendal 14.6 H (11.5-14.5) % Plt Count 407 H (130-400) K/uL MPV 9.5 (7.4-10.4) fL Immature Gran % (Auto) 0.4 % Neut % (Auto) 89.7 % Lymph % (Auto) 6.0 % [place] % (Auto) 3.9 % Eos % (Auto) 0.0 % Baso % (Auto) 0.0 % Neut # (Auto) 21.94 H (1.4-6.5) K/uL Lymph # (Auto) 1.47 (1.2-3.4) K/uL [place] # (Auto) 0.95 H (0.11-0.59) K/uL Eos # (Auto) 0.00 (0-0.5) K/uL Baso # (Auto) 0.01 (0-0.2) K/uL Immature Gran # (Auto) 0.10 H (0.00-0.02) K/uL Echinocytes 1+ Sodium 143 (136-145) mmol/L Potassium 4.5 (3.5-5.1) mmol/L Chloride 111 H (98-107) mmol/L Carbon Dioxide 19 L (21-32) mmol/L Anion Gap 13.0 H (3-11) BUN 112 H (7-18) mg/dl Creatinine 6.02 H* (0.6-1.4) mg/dl Est Cr Clr Drug Dosing Not Reportable Est GFR ( Amer) 9.8 Est GFR (Non-Af Amer) 8.5 BUN/Creatinine Ratio 18.5 (10-20) Glucose 144 H (70-99) mg/dl Lactate (0.4-2.0) mmol/L Calcium 9.4 (8.5-10.1) mg/dl Magnesium 3.3 H (1.8-2.4) mg/dl Total Bilirubin 0.5 (0.2-1) mg/dl AST 22 (15-37) U/L ALT 21 (12-78) U/L Alkaline Phosphatase 71 (45-117) U/L Troponin I < 0.015 (0-0.045) ng/ml Total Protein 8.0 (6.4-8.2) gm/dl Albumin 3.4 (3.4-5.0) gm/dl Globulin 4.6 H (2.5-4.0) gm/dl Albumin/Globulin Ratio 0.7 L (0.9-2) Urine Color Yellow Urine Appearance Turbid A (Clear) Urine pH 8.5 H (4.5-7.5) Ur Specific [place] 1.011 (1.000-1.030) Urine Protein 2+ H (Negative) Urine Glucose (UA) Negative (Negative) Urine Ketones Negative (Negative) Urine Blood 3+ H (Negative) Urine Nitrite Positive A (Negative) Urine Bilirubin Negative (Negative) Urine Urobilinogen Negative (Negative) Ur Leukocyte Esterase 3+ H (Negative) Urine WBC (Auto) >30 H (0-5) /hpf Urine RBC (Auto) >30 H (0-4) /hpf U Hyaline Cast (Auto) 1-5 (0-5) /lpf U Epithel Cells (Auto) 10-20 H (0-5) /lpf Urine Bacteria (Auto) 3+ H (Negative) Urine Yeast Not Reportable 08/13/20 Range/Units 19:06 WBC (4.8-10.8) K/uL RBC (4.7-6.1) M/uL Hgb (14.0-18.0) g/dL Hct (42-52) % MCV (80-100) fL MCH (25-34) pg MCHC (32-36) g/dL RDW Std Deviation (36.4-46.3) fL RDW Coeff of Kendal (11.5-14.5) % Plt Count (130-400) K/uL MPV (7.4-10.4) fL Immature Gran % (Auto) % Neut % (Auto) % Lymph % (Auto) % [place] % (Auto) % Eos % (Auto) % Baso % (Auto) % Neut # (Auto) (1.4-6.5) K/uL Lymph # (Auto) (1.2-3.4) K/uL [place] # (Auto) (0.11-0.59) K/uL Eos # (Auto) (0-0.5) K/uL Baso # (Auto) (0-0.2) K/uL Immature Gran # (Auto) (0.00-0.02) K/uL Echinocytes Sodium (136-145) mmol/L Potassium (3.5-5.1) mmol/L Chloride (98-107) mmol/L Carbon Dioxide (21-32) mmol/L Anion Gap (3-11) BUN (7-18) mg/dl Creatinine (0.6-1.4) mg/dl Est Cr Clr Drug Dosing Est GFR ( Amer) Est GFR (Non-Af Amer) BUN/Creatinine Ratio (10-20) Glucose (70-99) mg/dl Lactate 1.6 (0.4-2.0) mmol/L Calcium (8.5-10.1) mg/dl Magnesium (1.8-2.4) mg/dl Total Bilirubin (0.2-1) mg/dl AST (15-37) U/L ALT (12-78) U/L Alkaline Phosphatase (45-117) U/L Troponin I (0-0.045) ng/ml Total Protein (6.4-8.2) gm/dl Albumin (3.4-5.0) gm/dl Globulin (2.5-4.0) gm/dl Albumin/Globulin Ratio (0.9-2) Urine Color Urine Appearance (Clear) Urine pH (4.5-7.5) Ur Specific [place] (1.000-1.030) Urine Protein (Negative) Urine Glucose (UA) (Negative) Urine Ketones (Negative) Urine Blood (Negative) Urine Nitrite (Negative) Urine Bilirubin (Negative) Urine Urobilinogen (Negative) Ur Leukocyte Esterase (Negative) Urine WBC (Auto) (0-5) /hpf Urine RBC (Auto) (0-4) /hpf U Hyaline Cast (Auto) (0-5) /lpf U Epithel Cells (Auto) (0-5) /lpf Urine Bacteria (Auto) (Negative) Urine Yeast Diagnostic Findings XR chest 1V portable CLINICAL HISTORY: Shortness of breath. COMPARISON STUDY: Chest radiograph July 04, 2020. FINDINGS: Lung volumes are at the lower limits of normal. Lungs are clear. There is no pneumothorax or pleural effusion. Cardiac size is normal. Mediastinal contours are normal. There is no evidence for pulmonary edema. Incidental note is made of cholecystectomy clips. Skinfolds project over the right hemithorax. IMPRESSION: No acute cardiopulmonary findings. ACT 112: Negative or not required by law. Electronically signed by: David Alfred M.D. 08/13/2020 6:02 PM Dictated: 08/13/20 1800Transcribed: 08/13/[address] OF THE ABDOMEN AND PELVIS WITHOUT CONTRAST CLINICAL HISTORY: poss obstruction, vomiting COMPARISON STUDY: CT of the abdomen and pelvis July 04, 2020. TECHNIQUE: Axial images of the abdomen and pelvis were obtained without IV contrast. Images were reviewed in the axial, sagittal, and coronal planes. Automated exposure control was utilized for the study. A dose lowering technique was utilized adhering to the principles of ALARA. FINDINGS: Evaluation is suboptimal given difficulty positioning. No pneumatosis, free air or portal venous gas is present. Unenhanced images of the liver, spleen, adrenal glands and kidneys are unremarkable. There is no evidence for a bowel obstruction. A moderate to large amount stool within the rectum is noted. Bladder is distended. There is gas within the bladder. Bladder wall thickening is noted with gas also noted within the urethra. Ashraf balloon is malpositioned within the urethra. No abdominal or pelvic lymphadenopathy is identified although sensitivity is diminished on this unenhanced exam. Postoperative findings within the right femur noted. There is severe osteoporosis of the right hip. There is also moderate to severe left hip osteoarthritis. No acute fracture is noted within visualized skeletal structures. No suspicious osseous lesions are noted. IMPRESSION: 1. Malpositioned Ashraf catheter within the urethra. The catheter should be advanced. Distended bladder which contains gas, likely from instrumentation. Bladder wall thickening which be correlated with urinalysis. 2. Moderate to large amount stool within the colon and rectum. No evidence for a bowel obstruction. No free air. 3. Exam compromised given difficulty positioning. ACT 112: Negative or not required by law. Electronically signed by: David Alfred M.D. 08/13/2020 6:32 PM Dictated: 08/13/201821Transcribed: 08/13/20 1830 Code Status & VTE Plan VTE Prophylaxis Plan VTE Prophylaxis will be ordered: Yes PG Care Time/CCT Total # of Minutes Spent Total Time Spent with Patient: Total time spent is greater than 50% in human resources project coordinator rdination of care (as documented) at patient's floor/unit and/or counseling patient: Coding Level of Care Code 44874 Initial Inpt Care Lvl 3 Diagnoses Obstructive uropathy N13.9 DELORIS (acute kidney injury) N17.9 Urinary tract infection T83.511A; N39.0 Urinary tract infection type: catheter-associated UTI Indwelling urinary catheter type: indwelling urethral catheter Encounter type: initial encounter Nausea & vomiting R11.2 Vomiting Intractability: unspecified Vomiting type: unspecified BPH (benign prostatic hyperplasia) N40.0 Lower urinary tract symptom presence: unspecified whether lower urinary tract symptoms present Mild cognitive disorder F09 (1) BPH (benign prostatic hyperplasia) Lower urinary tract symptom presence: unspecified whether lower urinary tract symptoms present Qualified Code(s): N40.0 - Benign prostatic hyperplasia without lower urinary tract symptoms (2) Nausea & vomiting Vomiting Intractability: unspecified Vomiting type: unspecified Qualified Code(s): R11.2 - Nausea with vomiting, unspecified (3) Urinary tract infection Urinary tract infection type: catheter-associated UTI Indwelling urinary catheter type: indwelling urethral catheter Encounter type: initial encounter Qualified Code(s): T83.511A - Infection and inflammatory reaction due to indwelling urethral catheter, initial encounter; N39.0 - Urinary tract infection, site not specified
[2020-08-13] MEDS ORDERED: ONDANSETRON 4 MG OD TAB PO PRN (22:27)
[2020-08-13] MEDS: SODIUM CHLORIDE 0.9% 1000ML 1,000 ML IV SCH (22:56)
[2020-08-13 23:10] LABS: Creatine Kinase 192 U/L (39-308); Phosphorus 6.5 mg/dl (2.5-4.9)
[2020-08-13] MEDS: HEPARIN SOD 5,000 UNIT/0.5 ML VIAL SQ SCH (23:11)
[2020-08-13] MEDS: AVODART: ORDER AWAITING ACTION SCH (23:36)
[2020-08-14] MEDS: AVODART: ORDER AWAITING ACTION SCH ×2 (07:47→15:49)
[2020-08-14] MEDS: ACETAMINOPHEN 325 MG TAB PO PRN (07:54)
[2020-08-14 07:55] LABS: Hematocrit (blood only) 32.9 % (42-52); Immature Granulocytes # (auto) 0.05 K/uL (0.00-0.02); Immature Granulocytes % (auto) 0.3 %; Lymphocytes % (auto) 5.9 %; Mean Corpuscular Hemoglobin 29.8 pg (25-34); Mean Corpuscular Hgb Conc 33.4 g/dL (32-36); Mean Corpuscular Volume 89.2 fL (80-100); Mean Platelet Volume 9.1 fL (7.4-10.4); Monocytes # (auto) 1.12 K/uL (0.11-0.59); Monocytes % (auto) 7.3 %; Neutrophils # (auto) 13.24 K/uL (1.4-6.5); Neutrophils % (auto) 86.5 %; Platelet Count 297 K/uL (130-400); RDW Coefficient of Variation 14.4 % (11.5-14.5); RDW Standard Deviation 47.4 fL (36.4-46.3); Red Blood Count 3.69 M/uL (4.7-6.1); White Blood Count 15.31 K/uL (4.8-10.8)
[2020-08-14] MEDS: HEPARIN SOD 5,000 UNIT/0.5 ML VIAL SQ SCH ×2 (08:08→20:45)
[2020-08-14] MEDS: DOCUSATE SODIUM 100 MG CAP PO SCH (08:09)
[2020-08-14] MEDS: FLUTICASONE PROPIONATE NA SPR 16 GM BTL SCH ×2 (08:10→20:46)
[2020-08-14 08:26] LABS: BUN Creatinine Ratio 29.4 (10-20); Calcium 8.5 mg/dl (8.5-10.1); Creatinine Clr Calc Pharmacy 17.5 ml/min; Est GFR (African American) 24.3; Potassium 3.2 mmol/L (3.5-5.1)
[2020-08-14] MEDS ORDERED: NON-FORMULARY MEDICATION (Food Supplemt, Lactose-Reduced [Ensure] Liquid) PO SCH (09:00)
[2020-08-14] MEDS: DICLOFENAC SOD 1% GEL 100 GM TUBE EXT SCH ×3 (09:00→20:48)
[2020-08-14] MEDS: SODIUM CHLORIDE 0.9% 1000ML 1,000 ML IV SCH (09:17)
--- NOTE | 2020-08-14 15:04 | Hospitalist Progress Note ---
Date of Service August 14, 2020 Assessment & Plan (1) Obstructive uropathy: 75yo presenting with bladder distention, obstructive uropathy s/p Montoya replacement with immediate return of 800mL urine. Elevated BUN and Cr to 112 and 6.02, respectively, from normal baseline. K is normal, HCO3 slightly low at 19. Obstructive uropathy due to malpositioned Montoya catheter -Maintain Montoya catheter -Monitor strict I/Os -Check CK -Avoid nephrotoxic agents -Renal dosing where needed -IVF - NSS at 100mL/hr x 2 liters. Monitor for post-ATN diuresis -Monitor electrolytes and renal function - Improving today. (2) DELORIS (acute kidney injury): Elevated BUN and Cr as above in setting of obstructive uropathy. -Avoid nephrotoxic agents -Renal dosing where necessary -Monitor BUN, Cr, electrolytes, UOP -BMP q 12 hours - Improving with replacement of Montoya. (3) Dysphagia: White plaques in the back of his throat. - Nystatin swish and swallow. - GI consult for possible EGD to investigate candidal esophagitis. (4) Urinary tract infection: Follow urinary cultures. Has history of proteus UTI. UTI due to chronic Montoya catheter. - Now with bacteremia as well. - Urine culture and blood culture growing Gram(-) bacilli. - Continue Cefepime for now (5) Nausea & vomiting: Suspect secondary to #1 -Treatment as above -Zofran as needed (6) BPH (benign prostatic hyperplasia): Patient with chronic, indwelling Montoya which was replaced in ER today -Continue Flomax -Continue Avodart -Montoya care q shift (7) Mild cognitive disorder: Noted -Orientation and assistance as needed -Aspiration precautions -Fall precautions F/E/N - NSS at 100mL/hr x 2 liters, monitor BMP q 12 hours, regular diet as tolerated, Ensure Ppx - Heparin for DVT ppx Code - Full (per review of records) Dispo - Admit to medical with telemetry Admission and Anticipated Discharge Date Admission Date: August 13, 2020 Subjective Reports back of the throat pain. Reports no fevers/chills, chest pain, shortness of breath, abdominal pain, nausea, or vomiting. Physical Exam Constitutional: WD/WN, vitals as above Eyes: EOM intact bilaterally; no conjunctival abnormality ENMT: external ear and nose normal, oropharynx normal Neck: trachea midline, no thyromegaly normal visual inspection Respiratory: normal respiratory effort, lungs clear to auscultation no respiratory distress Cardiovascular: RRR, no murmur, no edema Gastrointestinal (Abdomen): Inspection/Auscultation: abdomen normal to inspection; abdomen not distended Musculoskeletal: no cyanosis or clubbing, extremities motor strength 5/5 Skin: no rashes, warm and dry Neurologic: moves all extremities and awake Psychiatric: Orientation: alert, oriented to person and cooperative Results & Data Results & Data ([facility]) Vital Signs (Past 12 Hours) Vital Signs Temp Pulse Pulse Resp BP Pulse Ox 08/14/20 12:11 36.7 C 98 H 20 135/65 98 08/14/20 07:42 36.7 C 95 H 20 133/66 99 08/14/20 07:00 86 08/14/20 03:32 36.7 C 99 H 20 124/66 99 PG Care Time/CCT Total # of Minutes Spent Total Time Spent with Patient: Total time spent is greater than 50% in coordination of care (as documented) at patient's floor/unit and/or counseling patient: Coding Level of Care Code 21947 Subs Hosp Care Lvl 3 Diagnoses Obstructive uropathy N13.9 DELORIS (acute kidney injury) N17.9 Dysphagia R13.10 Urinary tract infection T83.511A; N39.0 Encounter type: initial encounter Indwelling urinary catheter type: indwelling urethral catheter Urinary tract infection type: catheter-associated UTI Nausea & vomiting R11.2 Vomiting Intractability: unspecified Vomiting type: unspecified BPH (benign prostatic hyperplasia) N40.0 Lower urinary tract symptom presence: unspecified whether lower urinary tract symptoms present Mild cognitive disorder F09 (1) Urinary tract infection Encounter type: initial encounter Indwelling urinary catheter type: indwelling urethral catheter Urinary tract infection type: catheter-associated UTI Qualified Code(s): T83.511A - Infection and inflammatory reaction due to indwelling urethral catheter, initial encounter; N39.0 - Urinary tract infection, site not specified (2) BPH (benign prostatic hyperplasia) Lower urinary tract symptom presence: unspecified whether lower urinary tract symptoms present Qualified Code(s): N40.0 - Benign prostatic hyperplasia without lower urinary tract symptoms (3) Nausea & vomiting Vomiting Intractability: unspecified Vomiting type: unspecified Qualified Code(s): R11.2 - Nausea with vomiting, unspecified
--- NOTE | 2020-08-14 16:47 | Electrocardiogram Report ---
Test Reason : Blood Pressure : / mmHG Vent. Rate : 103 BPM Atrial Rate : 103 BPM P-R Int : 124 ms QRS Dur : 094 ms QT Int : 370 ms P-R-T Axes : 073 059 047 degrees QTc Int : 484 ms Sinus tachycardia Otherwise normal ECG When compared with ECG of 04-JUL-2020 16:05, No significant change was found Confirmed by José Daniel ([id number]) on 08/14/2020 4:47:16 PM Referred By: REFERRED SELF Confirmed By:José Daniel
[2020-08-14] MEDS: POTASSIUM CHLORIDE 40 MEQ in SODIUM CHLORIDE 0.45 % 1,000 ML IV SCH (17:23)
[2020-08-14 17:35] LABS: BUN Creatinine Ratio 37.3 (10-20); Calcium 8.1 mg/dl (8.5-10.1); Creatinine Clr Calc Pharmacy 26.2 ml/min; Est GFR (African American) 39.4; Potassium 3.2 mmol/L (3.5-5.1)
[2020-08-14] MEDS ORDERED: MICONAZOLE NITRATE POWDER 43 GM EXT PRN (18:19)
[2020-08-14] MEDS: NYSTATIN SUSP 500,000 U/5 ML UDC PO SCH ×2 (18:23→22:26)
[2020-08-14] MEDS: CEFEPIME 1,000 MG in SYRINGE 0 ML IV SCH (19:32)
[2020-08-14] MEDS: TAMSULOSIN HCL 0.4 MG CAP PO SCH (20:46)
[2020-08-15] MEDS: AVODART: ORDER AWAITING ACTION SCH ×3 (00:24→15:20)
[2020-08-15] MEDS: POTASSIUM CHLORIDE 40 MEQ in SODIUM CHLORIDE 0.45 % 1,000 ML IV SCH ×2 (05:59→16:12)
--- NOTE | 2020-08-15 08:32 | Gastrointestinal Consultation ---
Date of Consultation August 15, 2020 Assessment & Plan (1) Dysphagia: GI consult to evaluate need for EGD to rule out candidal esophagitis. Patient eating prior to assessment this morning, being fed by nursing. No coughing noted while eating. Oropharyngeal assessment limited but no obvious thrush noted. Nursing reports patient tolerating diet well. Continue nystatin swish and swallow. Would not pursue inpatient EGD unless there is a change in status. Outpatient GI follow-up if needed. Please refer to supervising physician addendum for further recommendations. History of Present Illness Attending Physician: Rafal Fregoso MD History of Present Illness The patient is a 75-year-old male with past medical history to include allergic rhinitis, biliary dyskinesia, catheter-associated urinary tract infection, chronic indwelling urena catheter, cognitive changes, GERD , hypercholesteremia, insomnia, primary cerebellar degeneration, cognitive dis ability presented to the ED 08/13/2020 due to vomiting with recent admission for urosepsis. He was subsequently admitted acute renal failure and urosepsis. GI consult for dysphagia and for evaluation for EGD to rule candidal esophagitis due to white plaques in the back of patient throat. On exam/interview today, patient is sitting upright in bed being fed by nursing staff. No coughing noted with swallowing. He has garbled speech at times and can be difficult to understanding. He does answer yes or no questions appropriately. Denies pain anywhere. States he just can't move around in bed. Denies any abdominal pain, nausea, or vomiting. Nursing reports taking medications and eating without difficulty. History is limited due to cognitive status. The patient is a resident at [facility] in [place], [place]. He is unmarried without children. He is a lifetime nonsmoker. No drug or alcohol use. Allergies Allergy/AdvReac Type Severity Reaction Status Date / Time No Known Allergies Allergy Verified 08/13/20 20:09 Home Medications Medication Instructions Recorded Confirmed Type ascorbic acid (vitamin C) 500 mg 500 mg PO DAILY #30 tab 01/27/20 08/13/20 Rx tablet cholecalciferol (vitamin D3) 25 25 mcg PO DAILY #30 cap 01/27/20 08/13/20 Rx mcg (1,000 unit) capsule diclofenac sodium 4 g TOPICAL BID 04/16/20 08/13/20 History diclofenac sodium 4 gm TOPICAL HS 04/16/20 08/13/20 History multivitamin [Daily-Ivan] 1 tab PO DAILY 04/16/20 08/13/20 History fluticasone propionate 1 spray INTRANASAL BID 06/03/20 08/13/20 History dutasteride 0.5 mg capsule 0.5 mg PO DAILY #90 cap 06/14/20 08/13/20 Rx Ensure 1 ea PO DAILY 07/04/20 08/13/20 History acetaminophen [Arthritis Pain 650 mg PO Q12H PRN MDD 3 GMS 07/04/20 08/13/20 History Reliever] APAP/24 HOURS diclofenac sodium 2 g TOPICAL QID PRN 07/04/20 08/13/20 History nystatin 1 appln TOP TID PRN 07/04/20 08/13/20 History tamsulosin 0.4 mg PO HS 07/04/20 08/13/20 History tizanidine 2 mg PO BID PRN 07/04/20 08/13/20 History docusate sodium 100 mg capsule 100 mg PO DAILY #30 cap 08/13/20 08/13/20 Rx ondansetron HCl 4 mg tablet 4 mg PO Q8H PRN #20 tab 08/13/20 08/13/20 Rx Patient History Medical History (Updated 08/14/20 @ 15:18 by Rafal Freogso MD) Allergic rhinitis At high risk for falls Biliary dyskinesia Catheter-associated urinary tract infection Chronic indwelling Urena catheter Cognitive changes Dependent for wheelchair mobility GERD (gastroesophageal reflux disease) Hypercholesteremia Insomnia Knee pain, right Lumbar pain on palpation Muscle weakness (generalized) Primary cerebellar degeneration Sleep disturbances Urinary symptom or sign Surgical History History of cholecystectomy S/P hip replacement Status post hip replacement Family History Sister Breast cancer Other No pertinent family history Denies family history of Ovarian cancer Prostate cancer Myocardial infarction Colorectal cancer Social History Smoking Status: Never smoker Tobacco Type: Cigarettes Hx Alcohol Use: No Hx Substance Use: No Preferred Language: Luxembourger Communication Ability: Impaired Beliefs That Will Affect Care: None marital status: Single Current Living Situation: Group Home Current Living Situation Comment: [facility], [place] current occupational status: disabled How many Children do You have: 0 Other Information That Helps Us Care for You: No Feels Safe at Home: No Safety Concerns: Feels Safe At This Time caffeine: Yes Dental Care, Regularly: No Physical Activity Frequency: Other Physical Activity Frequency Comment: Unable to exercise due to being disabled. Seatbelt Use: always Sunscreen Use: No Assistive Devices: None Review of Systems Review of Systems: Unobtainable due to cognitive status Physical Exam Constitutional: WD/WN, vitals as above Eyes: no eyelid abnormality and no conjunctival abnormality ENMT: Ears: no external ear abnormality Nose: no external nose abnormality Mouth: + dry oral mucous membranes and + edentulous Throat: no posterior oropharynx abnormality Neck: normal visual inspection and trachea midline Respiratory: normal respiratory effort; no respiratory distress and no labored breathing Cardiovascular: Rate/Rhythm: regular rate and regular rhythm sinus to sinus tach with pvc on telemetry Gastrointestinal (Abdomen): Inspection/Auscultation: abdomen normal to inspection and normal bowel sounds; abdomen not distended Musculoskeletal: Extremities: extremities normal to inspection Neurologic: moves all extremities and awake Psychiatric: Orientation: alert, oriented to person and cooperative Results & Data ([facility]) Vital Signs (Past 12 Hours) Vital Signs Temp Pulse Pulse Resp BP Pulse Ox 08/15/20 07:25 90 08/15/20 07:00 36.9 C 82 18 120/60 97 08/15/20 04:00 36.7 C 88 18 117/60 98 08/15/20 02:21 64 08/14/20 23:19 36.9 C 85 18 123/63 98 Laboratory Results - last 48 hr 08/13/20 08/13/20 08/13/20 17:45 17:45 18:46 WBC 24.47 H RBC 4.19 L Hgb 12.6 L Hct 37.4 L MCV 89.3 MCH 30.1 MCHC 33.7 RDW Std Deviation 48.1 H RDW Coeff of Kendal 14.6 H Plt Count 407 H MPV 9.5 Immature Gran % (Auto) 0.4 Neut % (Auto) 89.7 Lymph % (Auto) 6.0 Norman % (Auto) 3.9 Eos % (Auto) 0.0 Baso % (Auto) 0.0 Neut # (Auto) 21.94 H Lymph # (Auto) 1.47 Norman # (Auto) 0.95 H Eos # (Auto) 0.00 Baso # (Auto) 0.01 Immature Gran # (Auto) 0.10 H Echinocytes 1+ Sodium 143 Potassium 4.5 Chloride 111 H Carbon Dioxide 19 L Anion Gap 13.0 H BUN 112 H Creatinine 6.02 H* Est Cr Clr Drug Dosing Not Reportable Est GFR ( Amer) 9.8 Est GFR (Non-Af Amer) 8.5 BUN/Creatinine Ratio 18.5 Glucose 144 H Lactate Calcium 9.4 Phosphorus 6.5 H Magnesium 3.3 H Total Bilirubin 0.5 AST 22 ALT 21 Alkaline Phosphatase 71 Total Creatine Kinase 192 Troponin I < 0.015 Total Protein 8.0 Albumin 3.4 Globulin 4.6 H Albumin/Globulin Ratio 0.7 L Urine Color Yellow Urine Appearance Turbid A Urine pH 8.5 H Ur Specific [place] 1.011 Urine Protein 2+ H Urine Glucose (UA) Negative Urine Ketones Negative Urine Blood 3+ H Urine Nitrite Positive A Urine Bilirubin Negative Urine Urobilinogen Negative Ur Leukocyte Esterase 3+ H Urine WBC (Auto) >30 H Urine RBC (Auto) >30 H U Hyaline Cast (Auto) 1-5 U Epithel Cells (Auto) 10-20 H Urine Bacteria (Auto) 3+ H Urine Yeast Not Reportable Nasal Screen MRSA (PCR) COVID-19 Eval Order SARS-CoV-2, RNA, NAAT 08/13/20 08/13/20 08/13/20 19:06 20:41 20:41 WBC RBC Hgb Hct MCV MCH MCHC RDW Std Deviation RDW Coeff of Kendal Plt Count MPV Immature Gran % (Auto) Neut % (Auto) Lymph % (Auto) Norman % (Auto) Eos % (Auto) Baso % (Auto) Neut # (Auto) Lymph # (Auto) Norman # (Auto) Eos # (Auto) Baso # (Auto) Immature Gran # (Auto) Echinocytes Sodium Potassium Chloride Carbon Dioxide Anion Gap BUN Creatinine Est Cr Clr Drug Dosing Est GFR ( Amer) Est GFR (Non-Af Amer) BUN/Creatinine Ratio Glucose Lactate 1.6 Calcium Phosphorus Magnesium Total Bilirubin AST ALT Alkaline Phosphatase Total Creatine Kinase Troponin I Total Protein Albumin Globulin Albumin/Globulin Ratio Urine Color Urine Appearance Urine pH Ur Specific [place] Urine Protein Urine Glucose (UA) Urine Ketones Urine Blood Urine Nitrite Urine Bilirubin Urine Urobilinogen Ur Leukocyte Esterase Urine WBC (Auto) Urine RBC (Auto) U Hyaline Cast (Auto) U Epithel Cells (Auto) Urine Bacteria (Auto) Urine Yeast Nasal Screen MRSA (PCR) COVID-19 Eval [facility] [place] [place] SARS-CoV-2, RNA, NAAT NEGATIVE 08/13/20 08/14/20 08/14/20 23:28 07:40 07:40 WBC 15.31 H RBC 3.69 L Hgb 11.0 L Hct 32.9 L MCV 89.2 MCH 29.8 MCHC 33.4 RDW Std Deviation 47.4 H RDW Coeff of Kendal 14.4 Plt Count 297 MPV 9.1 Immature Gran % (Auto) 0.3 Neut % (Auto) 86.5 Lymph % (Auto) 5.9 Norman % (Auto) 7.3 Eos % (Auto) 0.0 Baso % (Auto) 0.0 Neut # (Auto) 13.24 H Lymph # (Auto) 0.90 L Norman # (Auto) 1.12 H Eos # (Auto) 0.00 Baso # (Auto) 0.00 Immature Gran # (Auto) 0.05 H Echinocytes Sodium 150 H Potassium 3.2 L D Chloride 119 H Carbon Dioxide 20 L Anion Gap 11.0 BUN 84 H Creatinine 2.85 H D Est Cr Clr Drug Dosing 17.5 Est GFR ( Amer) 24.3 Est GFR (Non-Af Amer) 21.0 BUN/Creatinine Ratio 29.4 H Glucose 98 Lactate Calcium 8.5 Phosphorus Magnesium Total Bilirubin AST ALT Alkaline Phosphatase Total Creatine Kinase Troponin I Total Protein Albumin Globulin Albumin/Globulin Ratio Urine Color Urine Appearance Urine pH Ur Specific [place] Urine Protein Urine Glucose (UA) Urine Ketones Urine Blood Urine Nitrite Urine Bilirubin Urine Urobilinogen Ur Leukocyte Esterase Urine WBC (Auto) Urine RBC (Auto) U Hyaline Cast (Auto) U Epithel Cells (Auto) Urine Bacteria (Auto) Urine Yeast Nasal Screen MRSA (PCR) Positive A COVID-19 Eval Order SARS-CoV-2, RNA, NAAT 08/14/20 16:58 WBC RBC Hgb Hct MCV MCH MCHC RDW Std Deviation RDW Coeff of Kendal Plt Count MPV Immature Gran % (Auto) Neut % (Auto) Lymph % (Auto) Norman % (Auto) Eos % (Auto) Baso % (Auto) Neut # (Auto) Lymph # (Auto) Norman # (Auto) Eos # (Auto) Baso # (Auto) Immature Gran # (Auto) Echinocytes Sodium 151 H Potassium 3.2 L Chloride 120 H Carbon Dioxide 23 Anion Gap 7.0 BUN 71 H Creatinine 1.91 H D Est Cr Clr Drug Dosing 26.2 Est GFR ( Amer) 39.4 Est GFR (Non-Af Amer) 34.0 BUN/Creatinine Ratio 37.3 H Glucose 91 Lactate Calcium 8.1 L Phosphorus Magnesium Total Bilirubin AST ALT Alkaline Phosphatase Total Creatine Kinase Troponin I Total Protein Albumin Globulin Albumin/Globulin Ratio Urine Color Urine Appearance Urine pH Ur Specific [place] Urine Protein Urine Glucose (UA) Urine Ketones Urine Blood Urine Nitrite Urine Bilirubin Urine Urobilinogen Ur Leukocyte Esterase Urine WBC (Auto) Urine RBC (Auto) U Hyaline Cast (Auto) U Epithel Cells (Auto) Urine Bacteria (Auto) Urine Yeast Nasal Screen MRSA (PCR) COVID-19 Eval Order SARS-CoV-2, RNA, NAAT
[2020-08-15] MEDS: NYSTATIN SUSP 500,000 U/5 ML UDC PO SCH ×4 (08:57→20:11)
[2020-08-15] MEDS: FLUTICASONE PROPIONATE NA SPR 16 GM BTL SCH ×2 (08:58→20:10)
[2020-08-15] MEDS: DICLOFENAC SOD 1% GEL 100 GM TUBE EXT SCH ×3 (08:58→20:12)
[2020-08-15] MEDS: HEPARIN SOD 5,000 UNIT/0.5 ML VIAL SQ SCH ×2 (08:58→20:11)
[2020-08-15] MEDS: DOCUSATE SODIUM 100 MG CAP PO SCH (09:03)
[2020-08-15 09:05] LABS: Hematocrit (blood only) 32.7 % (42-52); Hemoglobin 10.7 g/dL (14.0-18.0); Mean Corpuscular Hemoglobin 29.8 pg (25-34); Mean Corpuscular Hgb Conc 32.7 g/dL (32-36); Mean Corpuscular Volume 91.1 fL (80-100); Mean Platelet Volume 9.4 fL (7.4-10.4); Platelet Count 279 K/uL (130-400); RDW Coefficient of Variation 14.1 % (11.5-14.5); RDW Standard Deviation 46.9 fL (36.4-46.3); Red Blood Count 3.59 M/uL (4.7-6.1); White Blood Count 8.43 K/uL (4.8-10.8)
[2020-08-15 09:17] LABS: Albumin Globulin Ratio 0.7 (0.9-2); Albumin Level 2.4 gm/dl (3.4-5.0); BUN Creatinine Ratio 37.3 (10-20); Bilirubin,Total 0.4 mg/dl (0.2-1); Calcium 8.1 mg/dl (8.5-10.1); Creatinine Clr Calc Pharmacy 40.6 ml/min; Est GFR (African American) 66.4; Est GFR (Non-African American) 57.3; Globulin 3.7 gm/dl (2.5-4.0); Magnesium 2.2 mg/dl (1.8-2.4); Potassium 3.1 mmol/L (3.5-5.1); Total Protein 6.1 gm/dl (6.4-8.2)
[2020-08-15 09:57] LABS: Phosphorus 1.7 mg/dl (2.5-4.9)
--- NOTE | 2020-08-15 15:21 | Consultation Report ---
DATE OF CONSULTATION: 08/15/2020 Consult supplement to the note by Sarahi Mcgrath: I interviewed and examined the patient as well as reviewed the chart and labs. The patient is admitted with vomiting and some urosepsis. We were asked to see the patient for some difficulty swallowing and possible Liza esophagitis. On examination, the patient earlier today was observed to be swallowing without difficulty. He does not appear to be on any steroids that could predispose to Liza other than fluticasone intranasal spray. His mouth shows no evidence of thrush and he is not having any pain with swallowing. His abdomen is soft and nontender. IMPRESSION: The patient is doing well currently and not having any difficulty swallowing or obvious signs of Liza. He is being treated empirically already with nystatin swish and swallow, which I would recommend be continued. If he has further problems, please contact us. Otherwise at this point, we will sign off.
[2020-08-15 17:11] LABS: BUN Creatinine Ratio 38.1 (10-20); Calcium 8.1 mg/dl (8.5-10.1); Creatinine Clr Calc Pharmacy 51.4 ml/min; Est GFR (African American) 88.3; Est GFR (Non-African American) 76.2; Potassium 3.2 mmol/L (3.5-5.1)
[2020-08-15] MEDS: TAMSULOSIN HCL 0.4 MG CAP PO SCH (20:10)
[2020-08-15] MEDS: CEFEPIME 1,000 MG in SYRINGE 0 ML IV SCH (20:10)
--- NOTE | 2020-08-15 22:56 | Hospitalist Progress Note ---
Date of Service August 15, 2020 Assessment & Plan (1) Obstructive uropathy: 75yo presenting with bladder distention, obstructive uropathy s/p Ashraf replacement with immediate return of 800mL urine. Elevated BUN and Cr to 112 and 6.02, respectively, from normal baseline. K is normal, HCO3 slightly low at 19. Obstructive uropathy due to malpositioned Ashraf catheter -Maintain Ashraf catheter -Monitor strict I/Os -Check CK -Avoid nephrotoxic agents -Renal dosing where needed -IVF - NSS at 100mL/hr x 2 liters. Monitor for post-ATN diuresis -creatinine is improving. -Monitor electrolytes and renal function - Improving today. (2) DELORIS (acute kidney injury): Elevated BUN and Cr as above in setting of obstructive uropathy. -Possible Acute kidney failure with ATN Given casts and epithelial cells in urine. -Avoid nephrotoxic agents -Renal dosing where necessary -Monitor BUN, Cr, electrolytes, UOP -BMP q 12 hours - Improving with replacement of Ashraf. (3) Dysphagia: White plaques in the back of his throat. - Nystatin swish and swallow. - GI consult for possible EGD to investigate candidal esophagitis. (4) Urinary tract infection: Follow urinary cultures. Has history of proteus UTI. UTI due to chronic Ashraf catheter. - Now with bacteremia as well. - Urine culture and blood culture growing Gram(-) bacilli. - Continue Cefepime for now (5) Nausea & vomiting: Suspect secondary to #1 -Treatment as above -Zofran as needed (6) BPH (benign prostatic hyperplasia): Patient with chronic, indwelling Ashraf which was replaced in ER today -Continue Flomax -Continue Avodart -Ashraf care q shift (7) Mild cognitive disorder: Noted -Orientation and assistance as needed -Aspiration precautions -Fall precautions F/E/N - NSS at 100mL/hr x 2 liters, monitor BMP q 12 hours, regular diet as tolerated, Ensure Ppx - Heparin for DVT ppx Code - Full (per review of records) Admission and Anticipated Discharge Date Admission Date: August 13, 2020 Subjective Patient reports feeling well. He has no new complaints at this time. Review of Systems Review of Systems: All systems reviewed & are unremarkable except as noted in HPI & below Physical Exam Physical Exam: Constitutional: WD/WN, vitals as above Eyes: EOM intact bilaterally; no conjunctival abnormality ENMT: external ear and nose normal, oropharynx normal Neck: trachea midline, no thyromegaly normal visual inspection Respiratory: normal respiratory effort, lungs clear to auscultation no respiratory distress Cardiovascular: RRR, no murmur, no edema Gastrointestinal (Abdomen): Inspection/Auscultation: abdomen normal to inspection; abdomen not distended Musculoskeletal: no cyanosis or clubbing, extremities motor strength 5/5 Skin: no rashes, warm and dry Neurologic: moves all extremities and awake Psychiatric: Orientation: alert, oriented to person and cooperative Results & Data Results & Data ([facility]) Vital Signs (Past 12 Hours) Vital Signs Temp Pulse Pulse Resp BP Pulse Ox 08/15/20 19:24 36.6 C 77 18 146/64 H 99 08/15/20 15:45 36.8 C 66 16 141/90 H 96 08/15/20 15:36 36.9 C 84 18 144/61 H 99 08/15/20 14:21 94 H PG Care Time/CCT Total # of Minutes Spent Total Time Spent with Patient: Total time spent is greater than 50% in coordination of care (as documented) at patient's floor/unit and/or counseling patient: Coding Level of Care Code 99171 Subseq Hosp Care Lvl 3 Diagnoses Obstructive uropathy N13.9 DELORIS (acute kidney injury) N17.9 Dysphagia R13.10 Urinary tract infection T83.511A; N39.0 Encounter type: initial encounter Indwelling urinary catheter type: indwelling urethral catheter Urinary tract infection type: catheter-associated UTI Nausea & vomiting R11.2 Vomiting Intractability: unspecified Vomiting type: unspecified BPH (benign prostatic hyperplasia) N40.0 Lower urinary tract symptom presence: unspecified whether lower urinary tract symptoms present Mild cognitive disorder F09 Time Spent (min) 35 (1) Urinary tract infection Encounter type: initial encounter Indwelling urinary catheter type: indwelling urethral catheter Urinary tract infection type: catheter-associated UTI Qualified Code(s): T83.511A - Infection and inflammatory reaction due to indwelling urethral catheter, initial encounter; N39.0 - Urinary tract infection, site not specified (2) BPH (benign prostatic hyperplasia) Lower urinary tract symptom presence: unspecified whether lower urinary tract symptoms present Qualified Code(s): N40.0 - Benign prostatic hyperplasia withou t lower urinary tract symptoms (3) Nausea & vomiting Vomiting Intractability: unspecified Vomiting type: unspecified Qualified Code(s): R11.2 - Nausea with vomiting, unspecified
[2020-08-16] MEDS: AVODART: ORDER AWAITING ACTION SCH ×2 (00:03→10:13)
[2020-08-16] MEDS: POTASSIUM CHLORIDE 40 MEQ in SODIUM CHLORIDE 0.45 % 1,000 ML IV SCH ×2 (05:05→17:42)
[2020-08-16] MEDS: NYSTATIN SUSP 500,000 U/5 ML UDC PO SCH ×4 (10:16→21:37)
[2020-08-16] MEDS: DOCUSATE SODIUM 100 MG CAP PO SCH (10:17)
[2020-08-16] MEDS: HEPARIN SOD 5,000 UNIT/0.5 ML VIAL SQ SCH ×2 (10:20→21:38)
[2020-08-16] MEDS: FLUTICASONE PROPIONATE NA SPR 16 GM BTL SCH ×2 (10:20→21:35)
[2020-08-16] MEDS: DICLOFENAC SOD 1% GEL 100 GM TUBE EXT SCH ×3 (10:22→21:39)
--- NOTE | 2020-08-16 11:46 | Hospitalist Progress Note ---
Date of Service August 16, 2020 Assessment & Plan (1) Obstructive uropathy: 75yo presenting with bladder distention, obstructive uropathy s/p Ashraf replacement with immediate return of 800mL urine. Elevated BUN and Cr to 112 and 6.02, respectively, from normal baseline. K is normal, HCO3 slightly low at 19. Obstructive uropathy due to malpositioned Ashraf catheter UTI bacteremia May need to be on cefepime or carbapenem as studies show that third gen or less dont have go activity vs proteus. will consult with Infectious disease. Awaiting input from Infectious Disease -Maintain Ashraf catheter -Monitor strict I/Os -Check CK -Avoid nephrotoxic agents -Renal dosing where needed . Monitor for post-ATN diuresis -creatinine is improving. -Monitor electrolytes and renal function - Improving today. - (2) DELORIS (acute kidney injury): Elevated BUN and Cr as above in setting of obstructive uropathy. -Possible Acute kidney failure with ATN Given casts and epithelial cells in urine. -Avoid nephrotoxic agents -Renal dosing where necessary -Monitor BUN, Cr, electrolytes, UOP -BMP q 12 hours - Improving with replacement of Ashraf. (3) Dysphagia: White plaques in the back of his throat. - Nystatin swish and swallow. - GI consult for possible EGD to investigate candidal esophagitis. (4) Urinary tract infection: Follow urinary cultures. Has history of proteus UTI. UTI due to chronic Ashraf catheter. - Now with bacteremia as well. - Urine culture and blood culture growing Gram(-) bacilli. - Continue Cefepime for now (5) Nausea & vomiting: Suspect secondary to #1 -Treatment as above -Zofran as needed (6) BPH (benign prostatic hyperplasia): Patient with chronic, indwelling Ashraf which was replaced in ER today -Continue Flomax -Continue Avodart -Ashraf care q shift (7) Mild cognitive disorder: Noted -Orientation and assistance as needed -Aspiration precautions -Fall precautions regular diet as tolerated, Ensure Ppx - Heparin for DVT ppx Code - Full (per review of records) Admission and Anticipated Discharge Date Admission Date: August 13, 2020 Subjective Patient reports he has no new complaints, is a little upset being in the hosiptal. Review of Systems Review of Systems: All systems reviewed & are unremarkable except as noted in Subjective Physical Exam Physical Exam: Constitutional: WD/WN, vitals as above Eyes: EOM intact bilaterally; no conjunctival abnormality ENMT: external ear and nose normal, oropharynx normal Neck: trachea midline, no thyromegaly normal visual inspection Respiratory: normal respiratory effort, lungs clear to auscultation no respiratory distress Cardiovascular: RRR, no murmur, no edema Gastrointestinal (Abdomen): Inspection/Auscultation: abdomen normal to inspection; abdomen not distended Musculoskeletal: no cyanosis or clubbing, extremities motor strength 5/5 Skin: no rashes, warm and dry Neurologic: moves all extremities and awake Psychiatric: Orientation: alert, oriented to person and cooperative Results & Data Results & Data ([facility]) Vital Signs (Past 12 Hours) Vital Signs Temp Pulse Pulse Resp BP BP Pulse Ox 08/16/20 07:32 36.9 C 86 16 135/65 99 08/16/20 04:00 36.9 C 88 18 125/68 99 08/16/20 01:50 73 PG Care Time/CCT Total # of Minutes Spent Total Time Spent with Patient: Total time spent is greater than 50% in coordination of care (as documented) at patient's floor/unit and/or counseling patient: Coding Level of Care Code 72291 Subseq Hosp Care Lvl 2 Diagnoses Obstructive uropathy N13.9 DELORIS (acute kidney injury) N17.9 Dysphagia R13.10 Urinary tract infection T83.511A; N39.0 Encounter type: initial encounter Indwelling urinary catheter type: indwelling urethral catheter Urinary tract infection type: catheter-associated UTI Nausea & vomiting R11.2 Vomiting Intractability: unspecified Vomiting type: unspecified BPH (benign prostatic hyperplasia) N40.0 Lower urinary tract symptom presence: unspecified whether lower urinary tract symptoms present Mild cognitive disorder F09 Time Spent (min) 25 (1) Urinary tract infection Encounter type: initial encounter Indwelling urinary catheter type: indwelling urethral catheter Urinary tract infection type: catheter-associated UTI Qualified Code(s): T83.511A - Infection and inflammatory reaction due to indwelling urethral catheter, initial encounter; N39.0 - Urinary tract infection, site not specified (2) BPH (benign prostatic hyperplasia) Lower urinary tract symptom presence: unspecified whether lower urinary tract symptoms present Qualified Code(s): N40.0 - Benign prostatic hyperplasia without lower urinary tract symptoms (3) Nausea & vomiting Vomiting Intractability: unspecified Vomiting type: unspecified Qualified Code(s): R11.2 - Nausea with vomiting, unspecified
[2020-08-16 12:05] LABS: Eosinophils # (auto) 0.23 K/uL (0-0.5); Eosinophils % (auto) 3.3 %; Hematocrit (blood only) 35.7 % (42-52); Hemoglobin 11.6 g/dL (14.0-18.0); Immature Granulocytes # (auto) 0.01 K/uL (0.00-0.02); Immature Granulocytes % (auto) 0.1 %; Lymphocytes # (auto) 1.17 K/uL (1.2-3.4); Lymphocytes % (auto) 16.9 %; Mean Corpuscular Hemoglobin 29.3 pg (25-34); Mean Corpuscular Hgb Conc 32.5 g/dL (32-36); Mean Corpuscular Volume 90.2 fL (80-100); Mean Platelet Volume 9.4 fL (7.4-10.4); Monocytes # (auto) 0.86 K/uL (0.11-0.59); Monocytes % (auto) 12.4 %; Neutrophils # (auto) 4.65 K/uL (1.4-6.5); Neutrophils % (auto) 67.3 %; Platelet Count 272 K/uL (130-400); RDW Coefficient of Variation 13.7 % (11.5-14.5); RDW Standard Deviation 45.5 fL (36.4-46.3); Red Blood Count 3.96 M/uL (4.7-6.1); White Blood Count 6.92 K/uL (4.8-10.8)
[2020-08-16 12:34] LABS: BUN Creatinine Ratio 27.3 (10-20); Calcium 7.7 mg/dl (8.5-10.1); Creatinine Clr Calc Pharmacy 61.8 ml/min; Est GFR (African American) 101.2; Est GFR (Non-African American) 87.3; Potassium 3.4 mmol/L (3.5-5.1)
[2020-08-16] MEDS: tiZANidine HCL 4 MG TABLET PO PRN (13:48)
[2020-08-16] MEDS: ACETAMINOPHEN 325 MG TAB PO PRN (13:48)
[2020-08-16] MEDS ORDERED: CEFEPIME 2,000 MG in SYRINGE 0 ML IV SCH (20:00)
[2020-08-16] MEDS: TAMSULOSIN HCL 0.4 MG CAP PO SCH (21:43)
[2020-08-17] MEDS: POTASSIUM CHLORIDE 40 MEQ in SODIUM CHLORIDE 0.45 % 1,000 ML IV SCH ×2 (06:10→19:42)
[2020-08-17] MEDS: ACETAMINOPHEN 325 MG TAB PO PRN (08:02)
[2020-08-17] MEDS: DOCUSATE SODIUM 100 MG CAP PO SCH (08:04)
[2020-08-17] MEDS: NYSTATIN SUSP 500,000 U/5 ML UDC PO SCH ×4 (08:04→21:46)
[2020-08-17] MEDS: DICLOFENAC SOD 1% GEL 100 GM TUBE EXT SCH ×3 (08:06→21:47)
[2020-08-17] MEDS: FINASTERIDE 5 MG TAB PO SCH (08:07)
[2020-08-17] MEDS: FLUTICASONE PROPIONATE NA SPR 16 GM BTL SCH ×2 (08:08→21:44)
[2020-08-17] MEDS: HEPARIN SOD 5,000 UNIT/0.5 ML VIAL SQ SCH ×2 (08:08→21:45)
[2020-08-17] MEDS: traMADol HCL 50 MG TABLET PO PRN (10:02)
[2020-08-17] MEDS: tiZANidine HCL 4 MG TABLET PO PRN (10:02)
[2020-08-17] MEDS ORDERED: CEFEPIME 2,000 MG in SYRINGE 0 ML IV SCH (16:00)
[2020-08-17] MEDS: TAMSULOSIN HCL 0.4 MG CAP PO SCH (21:45)
[2020-08-18] MEDS: ERTAPENEM SODIUM 1,000 MG in SODIUM CHLORIDE 0.9% 50 ML IV SCH (05:24)
[2020-08-18] MEDS: FLUTICASONE PROPIONATE NA SPR 16 GM BTL SCH ×2 (09:00→20:10)
[2020-08-18 09:08] LABS: Creatinine Clr Calc Pharmacy 75.4 ml/min; Est GFR (African American) 107.9; Est GFR (Non-African American) 93.1
[2020-08-18] MEDS: POTASSIUM CHLORIDE 40 MEQ in SODIUM CHLORIDE 0.45 % 1,000 ML IV SCH ×2 (09:13→21:46)
[2020-08-18] MEDS: DICLOFENAC SOD 1% GEL 100 GM TUBE EXT SCH ×3 (10:30→20:11)
[2020-08-18] MEDS: DOCUSATE SODIUM 100 MG CAP PO SCH (11:21)
[2020-08-18] MEDS: FINASTERIDE 5 MG TAB PO SCH (11:22)
[2020-08-18] MEDS: HEPARIN SOD 5,000 UNIT/0.5 ML VIAL SQ SCH ×2 (11:22→20:10)
[2020-08-18] MEDS: NYSTATIN SUSP 500,000 U/5 ML UDC PO SCH ×4 (11:22→20:11)
[2020-08-18] MEDS: ONDANSETRON INJ 2 MG/ML 2 ML VIAL IV PRN (14:43)
--- NOTE | 2020-08-18 17:56 | Hospitalist Progress Note ---
Date of Service August 17, 2020 Assessment & Plan (1) Obstructive uropathy: 75yo presenting with bladder distention, obstructive uropathy s/p Ashraf replacement with immediate return of 800mL urine. Elevated BUN and Cr to 112 and 6.02, respectively, from normal baseline. K is normal, HCO3 slightly low at 19. Obstructive uropathy due to malpositioned Ashraf catheter UTI bacteremia May need to be on cefepime or carbapenem as studies show that third gen or less dont have go activity vs proteus. Appreciate input from ID. will place on ertapenem IV 1 g q24h. awaiting final cultures. -Maintain Ashraf catheter -Monitor strict I/Os -Check CK -Avoid nephrotoxic agents -Renal dosing where needed . Monitor for post-ATN diuresis -creatinine is improving. -Monitor electrolytes and renal function - Improving today. - (2) DELORIS (acute kidney injury): Elevated BUN and Cr as above in setting of obstructive uropathy. -Possible Acute kidney failure with ATN Given casts and epithelial cells in urine. -Avoid nephrotoxic agents -Renal dosing where necessary -Monitor BUN, Cr, electrolytes, UOP -BMP q 12 hours - Improving with replacement of Ashraf. (3) Dysphagia: White plaques in the back of his throat. - Nystatin swish and swallow. - GI consult for possible EGD to investigate candidal esophagitis. (4) Urinary tract infection: Follow urinary cultures. Has history of proteus UTI. UTI due to chronic Ashraf catheter. - Now with bacteremia as well. - Urine culture and blood culture growing Gram(-) bacilli. - Continue Cefepime for now (5) Nausea & vomiting: Suspect secondary to #1 -Treatment as above -Zofran as needed (6) BPH (benign prostatic hyperplasia): Patient with chronic, indwelling Ashraf which was replaced in ER today -Continue Flomax -Continue Avodart -Ashraf care q shift (7) Mild cognitive disorder: Noted -Orientation and assistance as needed -Aspiration precautions -Fall precautions regular diet as tolerated, Ensure Ppx - Heparin for DVT ppx Code - Full (per review of records) Admission and Anticipated Discharge Date Admission Date: August 13, 2020 Subjective Patient reports no new symptoms today. Review of Systems Review of Systems: All systems reviewed & are unremarkable except as noted in HPI & below Physical Exam Physical Exam: Constitutional: WD/WN, vitals as above Eyes: EOM intact bilaterally; no conjunctival abnormality ENMT: external ear and nose normal, oropharynx normal Neck: trachea midline, no thyromegaly normal visual inspection Respiratory: normal respiratory effort, lungs clear to auscultation no respiratory distress Cardiovascular: RRR, no murmur, no edema Gastrointestinal (Abdomen): Inspection/Auscultation: abdomen normal to inspection; abdomen not distended Musculoskeletal: no cyanosis or clubbing, extremities motor strength 5/5 Skin: no rashes, warm and dry Neurologic: moves all extremities and awake Psychiatric: Orientation: alert, oriented to person and cooperative Results & Data Results & Data ([facility]) Vital Signs (Past 12 Hours) Vital Signs Temp Pulse Pulse Resp BP Pulse Ox 08/18/20 16:37 95 H 08/18/20 15:42 36.6 C 84 20 161/76 H 99 08/18/20 12:02 36.3 C L 93 H 20 151/70 H 99 08/18/20 08:11 36.5 C 86 20 133/69 99 08/18/20 07:30 83 PG Care Time/CCT Total # of Minutes Spent Total Time Spent with Patient: Total time spent is greater than 50% in coordination of care (as documented) at patient's floor/unit and/or counseling patient: Coding Level of Care Code 58562 Subseq Hosp Care Lvl 2 Diagnoses Obstructive uropathy N13.9 DELORIS (acute kidney injury) N17.9 Dysphagia R13.10 Urinary tract infection T83.511A; N39.0 Urinary tract infection type: catheter-associated UTI Indwelling urinary catheter type: indwelling urethral catheter Encounter type: initial encounter Nausea & vomiting R11.2 Vomiting type: unspecified Vomiting Intractability: unspecified BPH (benign prostatic hyperplasia) N40.0 Lower urinary tract symptom presence: unspecified whether lower urinary tract symptoms present Mild cognitive disorder F09 Time Spent (min) 25 (1) Urinary tract infection Urinary tract infection type: catheter-associated UTI Indwelling urinary catheter type: indwelling urethral catheter Encounter type: initial encounter Qualified Code(s): T83.511A - Infection and inflammatory reaction due to indwelling urethral catheter, initial encounter; N39.0 - Urinary tract infection, site not specified (2) Nausea & vomiting Vomiting type: unspecified Vomiting Intractability: unspecified Qualified Code(s): R11.2 - Nausea with vomiting, unspecified (3) BPH (benign prostatic hyperplasia) Lower urinary tract symptom presence: unspecified whether lower urinary tract symptoms present Qualified Code(s): N40.0 - Benign prostatic hyperplasia without lower urinary tract symptoms
[2020-08-18] MEDS: TAMSULOSIN HCL 0.4 MG CAP PO SCH (20:10)
--- NOTE | 2020-08-18 22:33 | Hospitalist Progress Note ---
Date of Service August 18, 2020 Assessment & Plan (1) Obstructive uropathy: 75yo presenting with bladder distention, obstructive uropathy s/p Ashraf replacement with immediate return of 800mL urine. Elevated BUN and Cr to 112 and 6.02, respectively, from normal baseline. K is normal, HCO3 slightly low at 19. Obstructive uropathy due to malpositioned Ashraf catheter UTI bacteremia May need to be on cefepime or carbapenem as studies show that third gen or less dont have go activity vs proteus. Appreciate input from ID. will place on ertapenem IV 1 g q24h. awaiting final cultures. Once cultures are finalized, will place a U/S guided peripheral line. -Maintain Ashraf catheter -Monitor strict I/Os -Check CK -Avoid nephrotoxic agents -Renal dosing where needed . Monitor for post-ATN diuresis -creatinine is improving. -Monitor electrolytes and renal function - Improving today. - (2) DELORIS (acute kidney injury): Elevated BUN and Cr as above in setting of obstructive uropathy. -Possible Acute kidney failure with ATN Given casts and epithelial cells in urine. -Avoid nephrotoxic agents -Renal dosing where necessary -Monitor BUN, Cr, electrolytes, UOP -BMP q 12 hours - Improving with replacement of Ashraf. (3) Dysphagia: White plaques in the back of his throat. - Nystatin swish and swallow. - GI consult for possible EGD to investigate candidal esophagitis. (4) Urinary tract infection: Follow urinary cultures. Has history of proteus UTI. UTI due to chronic Ashraf catheter. - Now with bacteremia as well. - Urine culture and blood culture growing Gram(-) bacilli. - Continue Cefepime for now (5) Nausea & vomiting: Suspect secondary to #1 -Treatment as above -Zofran as needed (6) BPH (benign prostatic hyperplasia): Patient with chronic, indwelling Ashraf which was replaced in ER today -Continue Flomax -Continue Avodart -Ashraf care q shift (7) Mild cognitive disorder: Noted -Orientation and assistance as needed -Aspiration precautions -Fall precautions regular diet as tolerated, Ensure Ppx - Heparin for DVT ppx Code - Full (per review of records) Admission and Anticipated Discharge Date Admission Date: August 13, 2020 Subjective Patient reports no new symptoms. Review of Systems Review of Systems: All systems reviewed & are unremarkable except as noted in HPI & below Physical Exam Physical Exam: Constitutional: WD/WN, vitals as above Eyes: EOM intact bilaterally; no conjunctival abnormality ENMT: external ear and nose normal, oropharynx normal Neck: trachea midline, no thyromegaly normal visual inspection Respiratory: normal respiratory effort, lungs clear to auscultation no respiratory distress Cardiovascular: RRR, no murmur, no edema Gastrointestinal (Abdomen): Inspection/Auscultation: abdomen normal to inspection; abdomen not distended Musculoskeletal: no cyanosis or clubbing, extremities motor strength 5/5 Skin: no rashes, warm and dry Neurologic: moves all extremities and awake Psychiatric: Orientation: alert, oriented to person and cooperative Results & Data Results & Data ([facility]) Vital Signs (Past 12 Hours) Vital Signs Temp Pulse Pulse Resp BP BP Pulse Ox 08/18/20 19:25 36.8 C 98 H 20 138/72 98 08/18/20 16:37 95 H 08/18/20 15:42 36.6 C 84 20 161/76 H 99 08/18/20 12:02 36.3 C L 93 H 20 151/70 H 99 PG Care Time/CCT Total # of Minutes Spent Total Time Spent with Patient: Total time spent is greater than 50% in coordination of care (as documented) at patient's floor/unit and/or counseling patient: Coding Level of Care Code 87794 Subseq Hosp Care Lvl 2 Diagnoses Obstructive uropathy N13.9 DELORIS (acute kidney injury) N17.9 Dysphagia R13.10 Urinary tract infection T83.511A; N39.0 Encounter type: initial encounter Indwelling urinary catheter type: indwelling urethral catheter Urinary tract infection type: catheter-associated UTI Nausea & vomiting R11.2 Vomiting Intractability: unspecified Vomiting type: unspecified BPH (benign prostatic hyperplasia) N40.0 Lower urinary tract symptom presence: unspecified whether lower urinary tract symptoms present Mild cognitive disorder F09 Time Spent (min) 25 (1) Urinary tract infection Encounter type: initial encounter Indwelling urinary catheter type: indwelling urethral catheter Urinary tract infection type: catheter-associated UTI Qualified Code(s): T83.511A - Infection and inflammatory reaction due to indwelling urethral catheter, initial encounter; N39.0 - Urinary tract infection, site not specified (2) BPH (benign prostatic hyperplasia) Lower urinary tract symptom presence: unspecified whether lower urinary tract symptoms present Qualified Code(s): N40.0 - Benign prostatic hyperplasia without lower urinary tract symptoms (3) Nausea & vomiting Vomiting Intractability: unspecified Vomiting type: unspecified Qualified Code(s): R11.2 - Nausea with vomiting, unspecified
[2020-08-19] MEDS: ERTAPENEM SODIUM 1,000 MG in SODIUM CHLORIDE 0.9% 50 ML IV SCH (03:58)
[2020-08-19 07:08] LABS: Est GFR (African American) 103.8; Est GFR (Non-African American) 89.6
[2020-08-19] MEDS: NYSTATIN SUSP 500,000 U/5 ML UDC PO SCH ×4 (08:40→20:42)
[2020-08-19] MEDS: DOCUSATE SODIUM 100 MG CAP PO SCH (08:40)
[2020-08-19] MEDS: FLUTICASONE PROPIONATE NA SPR 16 GM BTL SCH ×2 (08:41→20:41)
[2020-08-19] MEDS: HEPARIN SOD 5,000 UNIT/0.5 ML VIAL SQ SCH ×2 (08:41→20:42)
[2020-08-19] MEDS: DICLOFENAC SOD 1% GEL 100 GM TUBE EXT SCH ×3 (08:44→20:41)
[2020-08-19] MEDS: FINASTERIDE 5 MG TAB PO SCH (08:44)
[2020-08-19] MEDS: POTASSIUM CHLORIDE 40 MEQ in SODIUM CHLORIDE 0.45 % 1,000 ML IV SCH (10:31)
[2020-08-19] MEDS: TAMSULOSIN HCL 0.4 MG CAP PO SCH (20:41)
--- NOTE | 2020-08-19 22:39 | Hospitalist Progress Note ---
Date of Service August 19, 2020 Assessment & Plan (1) Obstructive uropathy: 75yo presenting with bladder distention, obstructive uropathy s/p Ashraf replacement with immediate return of 800mL urine. Elevated BUN and Cr to 112 and 6.02, respectively, from normal baseline. K is normal, HCO3 slightly low at 19. Obstructive uropathy due to malpositioned Ashraf catheter UTI bacteremia May need to be on cefepime or carbapenem as studies show that third gen or less dont have go activity vs proteus. Appreciate input from ID. will place on ertapenem IV 1 g q24h. awaiting final cultures. Once cultures are finalized, will place a U/S guided peripheral line. To complete 14 days worth of antibiotics. End date 08/27 -Maintain Ashraf catheter -Monitor strict I/Os . Monitor for post-ATN diuresis -creatinine is improving. -Monitor electrolytes and renal function - Improving today. - (2) DELORIS (acute kidney injury): Elevated BUN and Cr as above in setting of obstructive uropathy. -Possible Acute kidney failure with ATN Given casts and epithelial cells in urine. -Avoid nephrotoxic agents -Renal dosing where necessary -Monitor BUN, Cr, electrolytes, UOP -BMP q 12 hours - Improving with replacement of Ashraf. (3) Dysphagia: White plaques in the back of his throat. - Nystatin swish and swallow. - GI consult for possible EGD to investigate candidal esophagitis. (4) Urinary tract infection: Follow urinary cultures. Has history of proteus UTI. UTI due to chronic Ashraf catheter. - Now with bacteremia as well. - Urine culture and blood culture growing Gram(-) bacilli. - Continue Cefepime for now (5) Nausea & vomiting: Suspect secondary to #1 -Treatment as above -Zofran as needed (6) BPH (benign prostatic hyperplasia): Patient with chronic, indwelling Ashraf which was replaced in ER today -Continue Flomax -Continue Avodart -Ashraf care q shift (7) Mild cognitive disorder: Noted -Orientation and assistance as needed -Aspiration precautions -Fall precautions regular diet as tolerated, Ensure Ppx - Heparin for DVT ppx Code - Full (per review of records) Admission and Anticipated Discharge Date Admission Date: August 13, 2020 Subjective 75 yo male reports no new symptoms. Review of Systems Review of Systems: All systems reviewed & are unremarkable except as noted in HPI & below Physical Exam Physical Exam: Constitutional: WD/WN, vitals as above Eyes: EOM intact bilaterally; no conjunctival abnormality ENMT: external ear and nose normal, oropharynx normal Neck: trachea midline, no thyromegaly normal visual inspection Respiratory: normal respiratory effort, lungs clear to auscultation no respiratory distress Cardiovascular: RRR, no murmur, no edema Gastrointestinal (Abdomen): Inspection/Auscultation: abdomen normal to inspection; abdomen not distended Musculoskeletal: no cyanosis or clubbing, extremities motor strength 5/5 Skin: no rashes, warm and dry Neurologic: moves all extremities and awake Psychiatric: Orientation: alert, oriented to person and cooperative Results & Data Results & Data ([facility]) Vital Signs (Past 12 Hours) Vital Signs Temp Pulse Pulse Resp BP Pulse Ox 08/19/20 16:36 96 H 08/19/20 14:53 36.4 C 88 18 133/60 99 08/19/20 11:17 36.6 C 89 20 146/69 H 100 PG Care Time/CCT Total # of Minutes Spent Total Time Spent with Patient: Total time spent is greater than 50% in coordination of care (as documented) at patient's floor/unit and/or counseling patient: Coding Level of Care Code 38312 Subseq Hosp Care Lvl 2 Diagnoses Obstructive uropathy N13.9 DELORIS (acute kidney injury) N17.9 Dysphagia R13.10 Urinary tract infection T83.511A; N39.0 Encounter type: initial encounter Indwelling urinary catheter type: indwelling urethral catheter Urinary tract infection type: catheter-associated UTI Nausea & vomiting R11.2 Vomiting Intractability: unspecified Vomiting type: unspecified BPH (benign prostatic hyperplasia) N40.0 Lower urinary tract symptom presence: unspecified whether lower urinary tract symptoms present Mild cognitive disorder F09 Time Spent (min) 25 (1) Urinary tract infection Encounter type: initial encounter Indwelling urinary catheter type: indwelling urethral catheter Urinary tract infection type: catheter-associated UTI Qualified Code(s): T83.511A - Infection and inflammatory reaction due to indwelling urethral catheter, initial encounter; N39.0 - Urinary tract infection, site not specified (2) BPH (benign prostatic hyperplasia) Lower urinary tract symptom presence: unspecified whether lower urinary tract symptoms present Qualified Code(s): N40.0 - Benign prostatic hyperplasia without lower urinary tract symptoms (3) Nausea & vomiting Vomiting Intractability: unspecified Vomiting type: unspecified Qualified Code(s): R11.2 - Nausea with vomiting, unspecified
[2020-08-20] MEDS: ERTAPENEM SODIUM 1,000 MG in SODIUM CHLORIDE 0.9% 50 ML IV SCH (04:00)
[2020-08-20 07:23] LABS: Hematocrit (blood only) 33.9 % (42-52); Hemoglobin 11.4 g/dL (14.0-18.0); Mean Corpuscular Hemoglobin 29.2 pg (25-34); Mean Corpuscular Hgb Conc 33.6 g/dL (32-36); Mean Corpuscular Volume 86.9 fL (80-100); Platelet Count 297 K/uL (130-400); RDW Coefficient of Variation 13.3 % (11.5-14.5); RDW Standard Deviation 42.7 fL (36.4-46.3)
[2020-08-20 07:54] LABS: BUN Creatinine Ratio 13.9 (10-20); Calcium 8.2 mg/dl (8.5-10.1); Creatinine Clr Calc Pharmacy 73.6 ml/min; Est GFR (African American) 108.5; Est GFR (Non-African American) 93.6; Potassium 3.6 mmol/L (3.5-5.1)
[2020-08-20] MEDS: FLUTICASONE PROPIONATE NA SPR 16 GM BTL SCH ×2 (07:56→21:07)
[2020-08-20] MEDS: DOCUSATE SODIUM 100 MG CAP PO SCH (07:56)
[2020-08-20] MEDS: HEPARIN SOD 5,000 UNIT/0.5 ML VIAL SQ SCH ×2 (07:56→21:06)
[2020-08-20] MEDS: NYSTATIN SUSP 500,000 U/5 ML UDC PO SCH ×4 (07:57→21:07)
[2020-08-20] MEDS: DICLOFENAC SOD 1% GEL 100 GM TUBE EXT SCH ×3 (07:57→21:06)
[2020-08-20] MEDS: FINASTERIDE 5 MG TAB PO SCH (07:58)
--- NOTE | 2020-08-20 14:58 | Hospitalist Progress Note ---
Date of Service August 20, 2020 Assessment & Plan (1) Urinary tract infection: UTI due to chronic Ashraf catheter. Blood cultures also positive on 08/13. Growing Proteus spc. - Ertapenem x 14 days per ID; end date: 08/27/2020. (2) Obstructive uropathy: Presented with bladder distention, obstructive uropathy s/p Ashraf replacement with immediate return of 800mL urine. Obstructive uropathy due to malpositioned Ashraf catheter. - Maintain Ashraf catheter (3) DELORIS (acute kidney injury): Elevated BUN and Cr as above in setting of obstructive uropathy. - Avoid nephrotoxic agents - Back to baseline by 08/16. (4) Dysphagia: White plaques in the back of his throat initially. - Continue Nystatin swish and swallow. - GI consulted - [place] no procedure was necessary. (5) Nausea & vomiting: Suspect secondary to #1. - Zofran as needed - Resolved. (6) BPH (benign prostatic hyperplasia): Patient with chronic, indwelling Ashraf which was replaced in ER on admission. - Continue Flomax & finasteride (7) Mild cognitive disorder: Noted. - Orientation and assistance as needed - Aspiration precautions - Fall precautions (8) DVT prophylaxis: Heparin 5,000 units SQ Q12h Admission and Anticipated Discharge Date Admission Date: August 13, 2020 Subjective No issues today. Feels he is in a routine now. Reports no fevers/chills, chest pain, shortness of breath, abdominal pain, nausea, or vomiting. Physical Exam Constitutional: WD/WN, vitals as above Eyes: EOM intact bilaterally; no conjunctival abnormality ENMT: external ear and nose normal, oropharynx normal Neck: trachea midline, no thyromegaly normal visual inspection Respiratory: normal respiratory effort, lungs clear to auscultation no respiratory distress Cardiovascular: RRR, no murmur, no edema Gastrointestinal (Abdomen): Inspection/Auscultation: abdomen normal to inspection; abdomen not distended Musculoskeletal: no cyanosis or clubbing, extremities motor strength 5/5 Skin: no rashes, warm and dry Neurologic: moves all extremities and awake Psychiatric: Orientation: alert, oriented to person and cooperative Results & Data Results & Data ([facility]) Vital Signs (Past 12 Hours) Vital Signs Temp Pulse Pulse Resp BP BP Pulse Ox 08/20/20 11:20 36.4 C L 87 16 124/67 100 11/23/20 10:23 74 08/20/20 07:12 36.3 C L 99 H 16 140/51 L 95 08/20/20 04:53 36.5 C 76 20 126/70 100 08/20/20 02:56 95 H PG Care Time/CCT Total # of Minutes Spent Total Time Spent with Patient: Total time spent is greater than 50% in coordination of care (as documented) at patient's floor/unit and/or counseling patient: Coding Level of Care Code 48014 Subseq Hosp Care Lvl 2 Diagnoses Urinary tract infection T83.511A; N39.0 Urinary tract infection type: catheter-associated UTI Indwelling urinary catheter type: indwelling urethral catheter Encounter type: initial encounter Obstructive uropathy N13.9 DELORIS (acute kidney injury) N17.9 Dysphagia R13.10 Nausea & vomiting R11.2 Vomiting type: unspecified Vomiting Intractability: unspecified BPH (benign prostatic hyperplasia) N40.0 Lower urinary tract symptom presence: unspecified whether lower urinary tract symptoms present Mild cognitive disorder F09 DVT prophylaxis Z29.9 (1) Urinary tract infection Urinary tract infection type: catheter-associated UTI Indwelling urinary catheter type: indwelling urethral catheter Encounter type: initial encounter Qualified Code(s): T83.511A - Infection and inflammatory reaction due to indwelling urethral catheter, initial encounter; N39.0 - Urinary tract infection, site not specified (2) Nausea & vomiting Vomiting type: unspecified Vomiting Intractability: unspecified Qualified Code(s): R11.2 - Nausea with vomiting, unspecified (3) BPH (benign prostatic hyperplasia) Lower urinary tract symptom presence: unspecified whether lower urinary tract symptoms present Qualified Code(s): N40.0 - Benign prostatic hyperplasia without lower urinary tract symptoms
[2020-08-20] MEDS: TAMSULOSIN HCL 0.4 MG CAP PO SCH (23:04)
[2020-08-21] MEDS: ERTAPENEM SODIUM 1,000 MG in SODIUM CHLORIDE 0.9% 50 ML IV SCH (05:33)
[2020-08-21] MEDS: DOCUSATE SODIUM 100 MG CAP PO SCH (13:29)
[2020-08-21] MEDS: HEPARIN SOD 5,000 UNIT/0.5 ML VIAL SQ SCH ×2 (13:29→20:34)
[2020-08-21] MEDS: FLUTICASONE PROPIONATE NA SPR 16 GM BTL SCH ×2 (13:29→20:29)
[2020-08-21] MEDS: DICLOFENAC SOD 1% GEL 100 GM TUBE EXT SCH ×3 (13:30→20:29)
[2020-08-21] MEDS: NYSTATIN SUSP 500,000 U/5 ML UDC PO SCH ×3 (13:30→20:27)
[2020-08-21] MEDS: FINASTERIDE 5 MG TAB PO SCH (13:30)
--- NOTE | 2020-08-21 14:53 | Hospitalist Progress Note ---
Date of Service August 21, 2020 Assessment & Plan (1) Urinary tract infection: UTI due to chronic Ashraf catheter. Blood cultures also positive on 08/13. Growing Proteus spc. - Ertapenem x 14 days per ID; end date: 08/27/2020. - No change today. Per dietary, his intake is poor. (2) Obstructive uropathy: Presented with bladder distention, obstructive uropathy s/p Ashraf replacement with immediate return of 800mL urine. Obstructive uropathy due to malpositioned Ashraf catheter. - Maintain Ashraf catheter (3) DELORIS (acute kidney injury): Elevated BUN and Cr as above in setting of obstructive uropathy. - Avoid nephrotoxic agents - Back to baseline by 08/16. (4) Dysphagia: White plaques in the back of his throat initially. - Continue Nystatin swish and swallow. - GI consulted - [place] no procedure was necessary. (5) Nausea & vomiting: Suspect secondary to #1. - Zofran as needed - Resolved. (6) BPH (benign prostatic hyperplasia): Patient with chronic, indwelling Ashraf which was replaced in ER on admission. - Continue Flomax & finasteride (7) Mild cognitive disorder: Noted. - Orientation and assistance as needed - Aspiration precautions - Fall precautions (8) DVT prophylaxis: Heparin 5,000 units SQ Q12h Admission and Anticipated Discharge Date Admission Date: August 13, 2020 Subjective No change today. No pain. Reports no fevers/chills, chest pain, shortness of breath, abdominal pain, nausea, or vomiting. Physical Exam Constitutional: WD/WN, vitals as above Eyes: EOM intact bilaterally; no conjunctival abnormality ENMT: external ear and nose normal, oropharynx normal Neck: trachea midline, no thyromegaly normal visual inspection Respiratory: normal respiratory effort, lungs clear to auscultation no respiratory distress Cardiovascular: RRR, no murmur, no edema Gastrointestinal (Abdomen): Inspection/Auscultation: abdomen normal to inspection; abdomen not distended Musculoskeletal: no cyanosis or clubbing, extremities motor strength 5/5 Skin: no rashes, warm and dry Neurologic: moves all extremities and awake Psychiatric: Orientation: alert, oriented to person and cooperative Results & Data Results & Data ([facility]) Vital Signs (Past 12 Hours) Vital Signs Temp Pulse Pulse Resp BP BP Pulse Ox 08/21/20 11:12 36.3 C L 86 18 127/60 100 08/21/20 07:31 83 08/21/20 07:23 36.6 C 89 18 105/74 98 08/21/20 03:34 36.8 C 105 H 22 109/72 95 PG Care Time/CCT Total # of Minutes Spent Total Time Spent with Patient: Total time spent is greater than 50% in coordination of care (as documented) at patient's floor/unit and/or counseling patient: Coding Level of Care Code 07392 Subseq Hosp Care Lvl 2 Diagnoses Urinary tract infection T83.511A; N39.0 Encounter type: initial encounter Indwelling urinary catheter type: indwelling urethral catheter Urinary tract infection type: catheter-associated UTI Obstructive uropathy N13.9 DELORIS (acute kidney injury) N17.9 Dysphagia R13.10 Nausea & vomiting R11.2 Vomiting Intractability: unspecified Vomiting type: unspecified BPH (benign prostatic hyperplasia) N40.0 Lower urinary tract symptom presence: unspecified whether lower urinary tract symptoms present Mild cognitive disorder F09 DVT prophylaxis Z29.9 (1) Urinary tract infection Encounter type: initial encounter Indwelling urinary catheter type: indwelling urethral catheter Urinary tract infection type: catheter-associated UTI Qualified Code(s): T83.511A - Infection and inflammatory reaction due to indwelling urethral catheter, initial encounter; N39.0 - Urinary tract infection, site not specified (2) BPH (benign prostatic hyperplasia) Lower urinary tract symptom presence: unspecified whether lower urinary tract symptoms present Qualified Code(s): N40.0 - Benign prostatic hyperplasia without lower urinary tract symptoms (3) Nausea & vomiting Vomiting Intractability: unspecified Vomiting type: unspecified Qualified Code(s): R11.2 - Nausea with vomiting, unspecified
[2020-08-21] MEDS: TAMSULOSIN HCL 0.4 MG CAP PO SCH (20:33)
[2020-08-22] MEDS: ERTAPENEM SODIUM 1,000 MG in SODIUM CHLORIDE 0.9% 50 ML IV SCH (03:40)
[2020-08-22] MEDS: DOCUSATE SODIUM 100 MG CAP PO SCH (09:02)
[2020-08-22] MEDS: NYSTATIN SUSP 500,000 U/5 ML UDC PO SCH ×4 (09:03→20:23)
[2020-08-22] MEDS: DICLOFENAC SOD 1% GEL 100 GM TUBE EXT SCH ×3 (09:04→20:24)
[2020-08-22] MEDS: FLUTICASONE PROPIONATE NA SPR 16 GM BTL SCH ×2 (09:04→20:23)
[2020-08-22] MEDS: HEPARIN SOD 5,000 UNIT/0.5 ML VIAL SQ SCH ×2 (09:56→20:23)
[2020-08-22 10:14] LABS: BUN Creatinine Ratio 17.7 (10-20); Calcium 8.3 mg/dl (8.5-10.1); Creatinine Clr Calc Pharmacy 57.1 ml/min; Est GFR (African American) 100.2; Est GFR (Non-African American) 86.4; Magnesium 1.8 mg/dl (1.8-2.4); Potassium 3.4 mmol/L (3.5-5.1)
[2020-08-22] MEDS: FINASTERIDE 5 MG TAB PO SCH (13:31)
[2020-08-22] MEDS: TAMSULOSIN HCL 0.4 MG CAP PO SCH (20:22)
--- NOTE | 2020-08-22 22:39 | Hospitalist Progress Note ---
Date of Service August 22, 2020 Assessment & Plan (1) Urinary tract infection: UTI due to chronic Ashraf catheter. Blood cultures also positive on 08/13. Growing Proteus spc. - Ertapenem x 14 days per ID; end date: 08/27/2020. - No change today. Per dietary, his intake is poor. Patient will remain in the hospital until 08/27 (2) Obstructive uropathy: Presented with bladder distention, obstructive uropathy s/p Ashraf replacement with immediate return of 800mL urine. Obstructive uropathy due to malpositioned Ashraf catheter. - Maintain Ashraf catheter (3) DELORIS (acute kidney injury): Elevated BUN and Cr as above in setting of obstructive uropathy. - Avoid nephrotoxic agents - Back to baseline by 08/16. (4) Dysphagia: White plaques in the back of his throat initially. - Continue Nystatin swish and swallow. - GI consulted - [place] no procedure was necessary. (5) Nausea & vomiting: Suspect secondary to #1. - Zofran as needed - Resolved. (6) BPH (benign prostatic hyperplasia): Patient with chronic, indwelling Ashraf which was replaced in ER on admission. - Continue Flomax & finasteride (7) Mild cognitive disorder: Noted. - Orientation and assistance as needed - Aspiration precautions - Fall precautions (8) DVT prophylaxis: Heparin 5,000 units SQ Q12h Admission and Anticipated Discharge Date Admission Date: August 13, 2020 Subjective 75 yo male reports no new symptoms today. Review of Systems Review of Systems: All systems reviewed & are unremarkable except as noted in HPI & below Physical Exam Physical Exam: Constitutional: WD/WN, vitals as above Eyes: EOM intact bilaterally; no conjunctival abnormality ENMT: external ear and nose normal, oropharynx normal Neck: trachea midline, no thyromegaly normal visual inspection Respiratory: normal respiratory effort, lungs clear to auscultation no respiratory distress Cardiovascular: RRR, no murmur, no edema Gastrointestinal (Abdomen): Inspection/Auscultation: abdomen normal to inspection; abdomen not distended Musculoskeletal: no cyanosis or clubbing, extremities motor strength 5/5 Skin: no rashes, warm and dry Neurologic: moves all extremities and awake Psychiatric: Orientation: alert, oriented to person and cooperative Results & Data Results & Data ([facility]) Vital Signs (Past 12 Hours) Vital Signs Temp Pulse Resp BP BP Pulse Ox 08/22/20 22:00 36.9 C 90 20 122/75 99 08/22/20 19:00 36.7 C 91 H 16 114/58 L 98 08/22/20 15:19 36.7 C 77 18 118/61 99 08/22/20 11:16 36.4 C L 86 18 115/63 97 PG Care Time/CCT Total # of Minutes Spent Total Time Spent with Patient: Total time spent is greater than 50% in coordination of care (as documented) at patient's floor/unit and/or counseling patient: Coding Level of Care Code 89709 Subseq Hosp Care Lvl 2 Diagnoses Urinary tract infection T83.511A; N39.0 Encounter type: initial encounter Indwelling urinary catheter type: indwelling urethral catheter Urinary tract infection type: catheter-associated UTI Obstructive uropathy N13.9 DELORIS (acute kidney injury) N17.9 Dysphagia R13.10 Nausea & vomiting R11.2 Vomiting Intractability: unspecified Vomiting type: unspecified BPH (benign prostatic hyperplasia) N40.0 Lower urinary tract symptom presence: unspecified whether lower urinary tract symptoms present Mild cognitive disorder F09 DVT prophylaxis Z29.9 (1) Urinary tract infection Encounter type: initial encounter Indwelling urinary catheter type: indwelling urethral catheter Urinary tract infection type: catheter-associated UTI Qualified Code(s): T83.511A - Infection and inflammatory reaction due to indwelling urethral catheter, initial encounter; N39.0 - Urinary tract infection, site not specified (2) BPH (benign prostatic hyperplasia) Lower urinary tract symptom presence: unspecified whether lower urinary tract symptoms present Qualified Code(s): N40.0 - Benign prostatic hyperplasia without lower urinary tract symptoms (3) Nausea & vomiting Vomiting Intractability: unspecified Vomiting type: unspecified Qualified Code(s): R11.2 - Nausea with vomiting, unspecified
[2020-08-23] MEDS: ERTAPENEM SODIUM 1,000 MG in SODIUM CHLORIDE 0.9% 50 ML IV SCH (04:47)
[2020-08-23] MEDS: LIDOCAINE 5% 1 PATCH TD SCH (05:28)
[2020-08-23 08:40] LABS: Hematocrit (blood only) 33.6 % (42-52); Hemoglobin 11.1 g/dL (14.0-18.0); Mean Corpuscular Hemoglobin 29.2 pg (25-34); Mean Corpuscular Volume 88.4 fL (80-100); Mean Platelet Volume 8.7 fL (7.4-10.4); Platelet Count 331 K/uL (130-400); RDW Coefficient of Variation 13.6 % (11.5-14.5); RDW Standard Deviation 43.5 fL (36.4-46.3); White Blood Count 4.96 K/uL (4.8-10.8)
[2020-08-23] MEDS: FINASTERIDE 5 MG TAB PO SCH (08:49)
[2020-08-23] MEDS: NYSTATIN SUSP 500,000 U/5 ML UDC PO SCH ×4 (08:49→20:17)
[2020-08-23] MEDS: FLUTICASONE PROPIONATE NA SPR 16 GM BTL SCH ×2 (08:50→20:16)
[2020-08-23] MEDS: DOCUSATE SODIUM 100 MG CAP PO SCH (08:50)
[2020-08-23] MEDS: DICLOFENAC SOD 1% GEL 100 GM TUBE EXT SCH ×7 (08:51→20:22)
[2020-08-23 09:25] LABS: BUN Creatinine Ratio 22.7 (10-20); Calcium 8.4 mg/dl (8.5-10.1); Creatinine Clr Calc Pharmacy 53.8 ml/min; Est GFR (African American) 98.3; Est GFR (Non-African American) 84.8; Potassium 3.2 mmol/L (3.5-5.1)
[2020-08-23] MEDS: HEPARIN SOD 5,000 UNIT/0.5 ML VIAL SQ SCH ×2 (10:23→20:23)
[2020-08-23] MEDS: POTASSIUM CHLORIDE CRTAB 20 MEQ TABCR PO SCH ×2 (14:51→20:22)
[2020-08-23] MEDS: TAMSULOSIN HCL 0.4 MG CAP PO SCH (20:23)
--- NOTE | 2020-08-23 23:26 | Hospitalist Progress Note ---
Date of Service August 23, 2020 Assessment & Plan (1) Urinary tract infection: UTI due to chronic Ashraf catheter. Blood cultures also positive on 08/13. Growing Proteus spc. - Ertapenem x 14 days per ID; end date: 08/27/2020. - No change today. Per dietary, his intake is poor. Patient will remain in the hospital until 08/27 (2) Obstructive uropathy: Presented with bladder distention, obstructive uropathy s/p Ashraf re placement with immediate return of 800mL urine. Obstructive uropathy due to malpositioned Ashraf catheter. - Maintain Ashraf catheter (3) DELORIS (acute kidney injury): Elevated BUN and Cr as above in setting of obstructive uropathy. - Avoid nephrotoxic agents - Back to baseline by 08/16. (4) Dysphagia: White plaques in the back of his throat initially. - Continue Nystatin swish and swallow. - GI consulted - [place] no procedure was necessary. (5) Nausea & vomiting: Suspect secondary to #1. - Zofran as needed - Resolved. (6) BPH (benign prostatic hyperplasia): Patient with chronic, indwelling Ashraf which was replaced in ER on admission. - Continue Flomax & finasteride (7) Mild cognitive disorder: Noted. - Orientation and assistance as needed - Aspiration precautions - Fall precautions (8) DVT prophylaxis: Heparin 5,000 units SQ Q12h Admission and Anticipated Discharge Date Admission Date: August 13, 2020 Subjective Patient has no new complaints. Review of Systems Review of Systems: All systems reviewed & are unremarkable except as noted in HPI & below Physical Exam Physical Exam: Constitutional: WD/WN, vitals as above Eyes: EOM intact bilaterally; no conjunctival abnormality ENMT: external ear and nose normal, oropharynx normal Neck: trachea midline, no thyromegaly normal visual inspection Respiratory: normal respiratory effort, lungs clear to auscultation no respiratory distress Cardiovascular: RRR, no murmur, no edema Gastrointestinal (Abdomen): Inspection/Auscultation: abdomen normal to inspection; abdomen not distended Musculoskeletal: no cyanosis or clubbing, extremities motor strength 5/5 Skin: no rashes, warm and dry Neurologic: moves all extremities and awake Psychiatric: Orientation: alert, oriented to person and cooperative Results & Data Results & Data ([facility]) Vital Signs (Past 12 Hours) Vital Signs Temp Pulse Pulse Resp BP BP Pulse Ox 08/23/20 22:28 36.6 C 56 L 18 136/69 08/23/20 19:44 36.9 C 64 18 147/91 H 08/23/20 17:47 89 08/23/20 16:35 36.5 C 78 20 130/72 92 08/23/20 15:04 36.9 C 86 16 109/56 L 95 08/23/20 11:26 36.7 C 96 H 18 114/68 98 PG Care Time/CCT Total # of Minutes Spent Total Time Spent with Patient: Total time spent is greater than 50% in coordination of care (as documented) at patient's floor/unit and/or counseling patient: Coding Level of Care Code 70397 Subseq Hosp Care Lvl 1 Diagnoses Urinary tract infection T83.511A; N39.0 Encounter type: initial encounter Indwelling urinary catheter type: indwelling urethral catheter Urinary tract infection type: catheter-associated UTI Obstructive uropathy N13.9 DELORIS (acute kidney injury) N17.9 Dysphagia R13.10 Nausea & vomiting R11.2 Vomiting Intractability: unspecified Vomiting type: unspecified BPH (benign prostatic hyperplasia) N40.0 Lower urinary tract symptom presence: unspecified whether lower urinary tract symptoms present Mild cognitive disorder F09 DVT prophylaxis Z29.9 (1) Urinary tract infection Encounter type: initial encounter Indwelling urinary catheter type: indwelling urethral catheter Urinary tract infection type: catheter-associated UTI Qualified Code(s): T83.511A - Infection and inflammatory reaction due to indwelling urethral catheter, initial encounter; N39.0 - Urinary tract infection, site not specified (2) BPH (benign prostatic hyperplasia) Lower urinary tract symptom presence: unspecified whether lower urinary tract symptoms present Qualified Code(s): N40.0 - Benign prostatic hyperplasia without lower urinary tract symptoms (3) Nausea & vomiting Vomiting Intractability: unspecified Vomiting type: unspecified Qualified Code(s): R11.2 - Nausea with vomiting, unspecified
[2020-08-24] MEDS: ERTAPENEM SODIUM 1,000 MG in SODIUM CHLORIDE 0.9% 50 ML IV SCH (03:48)
[2020-08-24] MEDS: HEPARIN SOD 5,000 UNIT/0.5 ML VIAL SQ SCH ×2 (09:58→20:58)
[2020-08-24] MEDS: LIDOCAINE 5% 1 PATCH TD SCH (09:59)
[2020-08-24] MEDS: DOCUSATE SODIUM 100 MG CAP PO SCH (09:59)
[2020-08-24] MEDS: FINASTERIDE 5 MG TAB PO SCH (09:59)
[2020-08-24] MEDS: POTASSIUM CHLORIDE CRTAB 20 MEQ TABCR PO SCH ×3 (10:01→20:57)
[2020-08-24] MEDS: NYSTATIN SUSP 500,000 U/5 ML UDC PO SCH ×2 (10:09→13:00)
[2020-08-24] MEDS: DICLOFENAC SOD 1% GEL 100 GM TUBE EXT SCH ×6 (10:17→20:59)
[2020-08-24] MEDS: FLUTICASONE PROPIONATE NA SPR 16 GM BTL SCH ×2 (10:18→20:57)
[2020-08-24] MEDS: traMADol HCL 50 MG TABLET PO PRN ×2 (10:18→20:56)
--- NOTE | 2020-08-24 11:36 | Palliative Care Consultation ---
Date of Consultation August 24, 2020 Assessment & Plan (1) Palliative care encounter: I talked with Mr Tiffany at bedside about his recent hospitalizations and how he is coping with this. He gets a great deal of support from his family, particularly his sister, Latha. He is aware of his weight loss and his perception is that this will improve when he returns to [facility]. I talked with him about concern that some of what we are seeing may be overall decline and asked him if he had considered the medical care that he would want moving forward. He deferred discussion about that at this time. I did also bring up the topic of artificial nutrition, including feeding tube if he were unable to maintain his nutrition by mouth. He doesn't feel that he needs to consider that at this point in time. He does note that his sister, Latha, would be his surrogate decision maker if he were unable to make decisions. I spoke with Latha on the phone and updated her on his current status. When I discussed goals of care with her, her response was "I can't do that". When I asked her to elaborate, she said that she didn't think that she could make him DNR. She does realize that he is declining and stated to me that if he has another infection "I don't know if he'll make it through". (2) Knee pain, right: Continue diclofenac gel topically. (3) Sacral pain: Tramadol available for prn use. He did receive a dose this morning. Frequent repositioning to offload pressure on sacrum. (4) Weight loss: Ensure supplement BID. Discussed with patient and sister that this is likely related to chronic illness and decline. (5) DELORIS (acute kidney injury): Due to obstructive uropathy. Creatinine has normalized from 6.0 on admission. (6) Spinocerebellar ataxia: (7) Sepsis: Acute renal failure type: unspecified Sepsis acute organ d ysfunction status: with acute organ dysfunction Sepsis type: sepsis due to unspecified organism Severe sepsis acute organ dysfunction type: acute renal failure Severe sepsis shock status: without septic shock Qualified Code(s): A41.9 - Sepsis, unspecified organism; R65.20 - Severe sepsis without septic shock; N17.9 - Acute kidney failure, unspecified History of Present Illness Reason for Consultation: goals of care Requesting Physician: Dr. 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 This is his second hospitalization in the two months for urosepsis. On this admission he had severe DELORIS due to obstructive uropathy. He does have BPH and chronic indwelling Ashraf catheter. He has been a resident at [facility]. He has had failure to thrive with 14lb weight loss in less than two months. His sister reports that his normal weight is around 165 and his current weight is 116lbs. He does note that his oral intake is down. He denies problems with swallowing and says that he wants to eat and does get hungry. He is currently being treated for thrush. His sister notes that he is very selective about the things that he'll eat but does like ensure. He is restless and frequently repositioning during visit with complaint of pain in his buttocks from skin breakdown. He has also had ongoing joint and back pain. He had been getting diclofenac gel and tylenol at [facility] for pain. Allergies Allergy/AdvReac Type Severity Reaction Status Date / Time No Known Allergies Allergy Verified 08/13/20 20:09 Home Medications Medication Instructions Recorded Confirmed Type ascorbic acid (vitamin C) 500 mg 500 mg PO DAILY #30 tab 01/27/20 08/13/20 Rx tablet cholecalciferol (vitamin D3) 25 25 mcg PO DAILY #30 cap 01/27/20 08/13/20 Rx mcg (1,000 unit) capsule diclofenac sodium 4 g TOPICAL BID 04/16/20 08/13/20 History diclofenac sodium 4 gm TOPICAL HS 04/16/20 08/13/20 History multivitamin [Daily-Ivan] 1 tab PO DAILY 04/16/20 08/13/20 History fluticasone propionate 1 spray INTRANASAL BID 06/03/20 08/13/20 History dutasteride 0.5 mg capsule 0.5 mg PO DAILY #90 cap 06/14/20 08/13/20 Rx Ensure 1 ea PO DAILY 07/04/20 08/13/20 History acetaminophen [Arthritis Pain 650 mg PO Q12H PRN MDD 3 GMS 07/04/20 08/13/20 History Reliever] APAP/24 HOURS diclofenac sodium 2 g TOPICAL QID PRN 07/04/20 08/13/20 History nystatin 1 appln TOP TID PRN 07/04/20 08/13/20 History tamsulosin 0.4 mg PO HS 07/04/20 08/13/20 History tizanidine 2 mg PO BID PRN 07/04/20 08/13/20 History docusate sodium 100 mg capsule 100 mg PO DAILY #30 cap 08/13/20 08/13/20 Rx ondansetron HCl 4 mg tablet 4 mg PO Q8H PRN #20 tab 08/13/20 08/13/20 Rx Patient History Medical History (Updated 08/24/20 @ 11:25 by Tonya Leone MD) Allergic rhinitis At high risk for falls Biliary dyskinesia Catheter-associated urinary tract infection Chronic indwelling Ashraf catheter Cognitive changes Dependent for wheelchair mobility GERD (gastroesophageal reflux disease) Hypercholesteremia Insomnia Knee pain, right Lumbar pain on palpation Muscle weakness (generalized) Primary cerebellar degeneration Sleep disturbances Urinary symptom or sign Surgical History History of cholecystectomy S/P hip replacement Status post hip replacement Family History Sister Breast cancer Other No pertinent family history Denies family history of Ovarian cancer Prostate cancer Myocardial infarction Colorectal cancer Social History Smoking Status: Never smoker Tobacco Type: Cigarettes Hx Alcohol Use: No Hx Substance Use: No Preferred Language: Belarusian Communication Ability: Impaired Beliefs That Will Affect Care: None marital status: Single Current Living Situation: [facility] Current Living Situation Comment: [facility] current occupational status: disabled How many Children do You have: 0 Other Information That Helps Us Care for You: No Feels Safe at Home: No Safety Concerns: Feels Safe At This Time caffeine: Yes Dental Care, Regularly: No Physical Activity Frequency: Other Physical Activity Frequency Comment: Unable to exercise due to being disabled. Seatbelt Use: always Sunscreen Use: No Assistive Devices: Denture - Upper, Glasses and Wheelchair Review of Systems Review of Systems: [place] Symptom Assessment Scale Pain 3/3 Dyspnea 0/3 Nausea 0/3 Anxiety 1/3 Depression 0/3 Drowsiness 0/3 Anorexia 2/3 Palliative Performance Score 40% Physical Exam Constitutional: + cachectic and + frail appearing Eyes: EOM intact bilaterally Respiratory: normal respiratory effort; no labored breathing Cardiovascular: Extremities: no edema Musculoskeletal: flexion contractures lower extremities Psychiatric: A+Ox3, euthymic affect Genitourinary: Ashraf catheter Results & Data ([facility]) Vital Signs (Past 12 Hours) Vital Signs Temp Pulse Pulse Resp BP Pulse Ox 08/24/20 07:00 88 08/24/20 03:06 97.9 F 74 20 139/82 94 08/23/20 23:30 80 PG Care Time/CCT Total # of Minutes Spent Total Time Spent with Patient: Total time spent is greater than 50% in coordination of care (as documented) at patient's floor/unit and/or counseling patient:Total time spent 75 minutes with more than 50% of time spent on discussing goals of care, symptom management and coordination of care. 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
--- NOTE | 2020-08-24 13:07 | Hospitalist Progress Note ---
Date of Service August 24, 2020 Assessment & Plan (1) Urinary tract infection: UTI due to chronic Ashraf catheter. Blood cultures also positive on 08/13. Growing Proteus spc. - Ertapenem x 14 days per ID; end date: 08/27/2020. - No change today. Per dietary, his intake is poor. Chatted with palliative. He is not interested in change of code status and would like to proceed with plans. (2) Obstructive uropathy: Presented with bladder distention, obstructive uropathy s/p Ashraf replacement with immediate return of 800mL urine. Obstructive uropathy due to malpositioned Ashraf catheter. - Maintain Ashraf catheter (3) DELORIS (acute kidney injury): Elevated BUN and Cr as above in setting of obstructive uropathy. - Avoid nephrotoxic agents - Back to baseline by 08/16. (4) Dysphagia: White plaques in the back of his throat initially. - Continue Nystatin swish and swallow. - GI consulted - [place] no procedure was necessary. (5) Nausea & vomiting: Suspect secondary to #1. - Zofran as needed - Resolved. (6) BPH (benign prostatic hyperplasia): Patient with chronic, indwelling Ashraf which was replaced in ER on admission. - Continue Flomax & finasteride - Maintain Ashraf as above (7) Mild cognitive disorder: Noted. - Orientation and assistance as needed - Aspiration precautions - Fall precautions (8) DVT prophylaxis: Heparin 5,000 units SQ Q12h Admission and Anticipated Discharge Date Admission Date: August 13, 2020 Subjective No complaints today. Reports no fevers/chills, chest pain, shortness of breath, abdominal pain, nausea, or vomiting. Physical Exam Constitutional: WD/WN, vitals as above Eyes: EOM intact bilaterally; no conjunctival abnormality ENMT: external ear and nose normal, oropharynx normal Neck: trachea midline, no thyromegaly normal visual inspection Respiratory: normal respiratory effort, lungs clear to auscultation no respiratory distress Cardiovascular: RRR, no murmur, no edema Gastrointestinal (Abdomen): Inspection/Auscultation: abdomen normal to inspection; abdomen not distended Musculoskeletal: no cyanosis or clubbing, extremities motor strength 5/5 Skin: no rashes, warm and dry Neurologic: moves all extremities and awake Psychiatric: Orientation: alert, oriented to person and cooperative Results & Data Results & Data ([facility]) Vital Signs (Past 12 Hours) Vital Signs Temp Pulse Pulse Resp BP Pulse Ox 08/24/20 12:11 36.8 C 75 18 109/67 97 08/24/20 07:00 88 08/24/20 03:06 36.6 C 74 20 139/82 94 PG Care Time/CCT Total # of Minutes Spent Total Time Spent with Patient: Total time spent is greater than 50% in coordination of care (as documented) at patient's floor/unit and/or counseling patient: Coding Level of Care Code 81825 Subseq Hosp Care Lvl 2 Diagnoses Urinary tract infection T83.511A; N39.0 Urinary tract infection type: catheter-associated UTI Indwelling urinary catheter type: indwelling urethral catheter Encounter type: initial encounter Obstructive uropathy N13.9 DELORIS (acute kidney injury) N17.9 Dysphagia R13.10 Nausea & vomiting R11.2 Vomiting type: unspecified Vomiting Intractability: unspecified BPH (benign prostatic hyperplasia) N40.0 Lower urinary tract symptom presence: unspecified whether lower urinary tract symptoms present Mild cognitive disorder F09 DVT prophylaxis Z29.9 (1) Urinary tract infection Urinary tract infection type: catheter-associated UTI Indwelling urinary catheter type: indwelling urethral catheter Encounter type: initial encounter Qualified Code(s): T83.511A - Infection and inflammatory reaction due to indwelling urethral catheter, initial encounter; N39.0 - Urinary tract infection, site not specified (2) Nausea & vomiting Vomiting type: unspecified Vomiting Intractability: unspecified Qualified Code(s): R11.2 - Nausea with vomiting, unspecified (3) BPH (benign prostatic hyperplasia) Lower urinary tract symptom presence: unspecified whether lower urinary tract symptoms present Qualified Code(s): N40.0 - Benign prostatic hyperplasia without lower urinary tract symptoms
[2020-08-24] MEDS ORDERED: ENSURE PO SCH (15:06)
[2020-08-24] MEDS: TAMSULOSIN HCL 0.4 MG CAP PO SCH (20:56)
[2020-08-25] MEDS: ERTAPENEM SODIUM 1,000 MG in SODIUM CHLORIDE 0.9% 50 ML IV SCH (04:27)
[2020-08-25] MEDS: traMADol HCL 50 MG TABLET PO PRN ×2 (04:36→11:45)
[2020-08-25] MEDS: DOCUSATE SODIUM 100 MG CAP PO SCH (07:47)
[2020-08-25] MEDS: FLUTICASONE PROPIONATE NA SPR 16 GM BTL SCH ×2 (07:47→21:50)
[2020-08-25] MEDS: HEPARIN SOD 5,000 UNIT/0.5 ML VIAL SQ SCH ×2 (07:48→21:48)
[2020-08-25] MEDS: POTASSIUM CHLORIDE CRTAB 20 MEQ TABCR PO SCH (07:48)
[2020-08-25] MEDS: LIDOCAINE 5% 1 PATCH TD SCH (07:49)
[2020-08-25] MEDS: FINASTERIDE 5 MG TAB PO SCH (07:49)
[2020-08-25] MEDS: DICLOFENAC SOD 1% GEL 100 GM TUBE EXT SCH ×6 (07:49→21:49)
[2020-08-25] MEDS: ONDANSETRON INJ 2 MG/ML 2 ML VIAL IV PRN (10:14)
--- NOTE | 2020-08-25 11:57 | Hospitalist Progress Note ---
Date of Service August 25, 2020 Assessment & Plan (1) Urinary tract infection: UTI due to chronic Ashraf catheter. Blood cultures also positive on 08/13. Growing Proteus spc. - Ertapenem x 14 days per ID; end date: 08/27/2020. - No change today. Per dietary, his intake is poor. Chatted with palliative. He is not interested in change of code status and would like to proceed with plans. We did start Boost for him today which his sister February reports that he likes. (2) Obstructive uropathy: Presented with bladder distention, obstructive uropathy s/p Ashraf replacement with immediate return of 800mL urine. Obstructive uropathy due to malpositioned Ashraf catheter. - Maintain Ashraf catheter (3) DELORIS (acute kidney injury): Elevated BUN and Cr as above in setting of obstructive uropathy. - Avoid nephrotoxic agents - Back to baseline by 08/16. (4) Dysphagia: White plaques in the back of his throat initially. - Continue Nystatin swish and swallow. - GI consulted - [place] no procedure was necessary. (5) Nausea & vomiting: Suspect secondary to #1. - Zofran as needed - Resolved. (6) BPH (benign prostatic hyperplasia): Patient with chronic, indwelling Ashraf which was replaced in ER on admission. - Continue Flomax & finasteride - Maintain Ashraf as above (7) Mild cognitive disorder: Noted. - Orientation and assistance as needed - Aspiration precautions - Fall precautions (8) DVT prophylaxis: Heparin 5,000 units SQ Q12h Admission and Anticipated Discharge Date Admission Date: August 13, 2020 Subjective Would not talk with me today. He had his tray lid upside down and his arm over his face. It looked like he was nauseated and was about to vomit, but when I asked he just said, "I don't need anything from you. Go away!" several times. I tried to offer nausea medication or pain medication. He said, "Now my knee's getting up." but would not clarify and told me to go away again. Physical Exam Constitutional: WD/WN, vitals as above + acute distress Eyes: EOM intact bilaterally; no conjunctival abnormality ENMT: external ear and nose normal, oropharynx normal Neck: trachea midline, no thyromegaly normal visual inspection Respiratory: normal respiratory effort, lungs clear to auscultation no respiratory distress Cardiovascular: RRR, no murmur, no edema Gastrointestinal (Abdomen): Inspection/Auscultation: abdomen normal to inspection; abdomen not distended Musculoskeletal: no cyanosis or clubbing, extremities motor strength 5/5 Skin: no rashes, warm and dry Neurologic: moves all extremities and awake Psychiatric: Orientation: alert and oriented to person; + uncooperative Results & Data Results & Data ([facility]) Vital Signs (Past 12 Hours) Vital Signs Temp Pulse Pulse Resp BP BP Pulse Ox 08/25/20 11:45 36.6 C 81 18 116/65 98 08/25/20 07:57 36.5 C 74 18 103/61 91 08/25/20 07:27 86 08/25/20 05:04 36.4 C L 77 18 125/61 98 08/25/20 00:56 80 PG Care Time/CCT Total # of Minutes Spent Total Time Spent with Patient: Total time spent is greater than 50% in coordination of care (as documented) at patient's floor/unit and/or counseling patient: Coding Level of Care Code 07865 Subseq Hosp Care Lvl 1 Diagnoses Urinary tract infection T83.511A; N39.0 Urinary tract infection type: catheter-associated UTI Indwelling urinary catheter type: indwelling urethral catheter Encounter type: initial encounter Obstructive uropathy N13.9 DELORIS (acute kidney injury) N17.9 Dysphagia R13.10 Nausea & vomiting R11.2 Vomiting type: unspecified Vomiting Intractability: unspecified BPH (benign prostatic hyperplasia) N40.0 Lower urinary tract symptom presence: unspecified whether lower urinary tract symptoms present Mild cognitive disorder F09 DVT prophylaxis Z29.9 (1) Urinary tract infection Urinary tract infection type: catheter-associated UTI Indwelling urinary catheter type: indwelling urethral catheter Encounter type: initial encounter Qualified Code(s): T83.511A - Infection and inflammatory reaction due to indwelling urethral catheter, initial encounter; N39.0 - Urinary tract infection, site not specified (2) Nausea & vomiting Vomiting type: unspecified Vomiting Intractability: unspecified Qualified Code(s): R11.2 - Nausea with vomiting, unspecified (3) BPH (benign prostatic hyperplasia) Lower urinary tract symptom presence: unspecified whether lower urinary tract symptoms present Qualified Code(s): N40.0 - Benign prostatic hyperplasia without lower urinary tract symptoms
[2020-08-25] MEDS: TAMSULOSIN HCL 0.4 MG CAP PO SCH (21:54)
[2020-08-26] MEDS: ERTAPENEM SODIUM 1,000 MG in SODIUM CHLORIDE 0.9% 50 ML IV SCH (04:54)
[2020-08-26] MEDS: tiZANidine HCL 4 MG TABLET PO PRN (06:15)
[2020-08-26 07:16] LABS: Hemoglobin 10.9 g/dL (14.0-18.0); Mean Corpuscular Hemoglobin 29.6 pg (25-34); Mean Corpuscular Volume 89.7 fL (80-100); Mean Platelet Volume 8.8 fL (7.4-10.4); Platelet Count 354 K/uL (130-400); RDW Coefficient of Variation 13.7 % (11.5-14.5); RDW Standard Deviation 45.2 fL (36.4-46.3); Red Blood Count 3.68 M/uL (4.7-6.1); White Blood Count 4.91 K/uL (4.8-10.8)
[2020-08-26 07:42] LABS: BUN Creatinine Ratio 27.4 (10-20); Calcium 8.9 mg/dl (8.5-10.1); Creatinine Clr Calc Pharmacy 59.2 ml/min; Est GFR (African American) 104.3; Phosphorus 2.9 mg/dl (2.5-4.9); Potassium 3.9 mmol/L (3.5-5.1)
[2020-08-26] MEDS: LIDOCAINE 5% 1 PATCH TD SCH (09:25)
[2020-08-26] MEDS: FLUTICASONE PROPIONATE NA SPR 16 GM BTL SCH ×2 (09:26→21:25)
[2020-08-26] MEDS: HEPARIN SOD 5,000 UNIT/0.5 ML VIAL SQ SCH ×2 (09:26→21:23)
[2020-08-26] MEDS: DOCUSATE SODIUM 100 MG CAP PO SCH (09:27)
[2020-08-26] MEDS: DICLOFENAC SOD 1% GEL 100 GM TUBE EXT SCH ×6 (09:27→21:26)
[2020-08-26] MEDS: FINASTERIDE 5 MG TAB PO SCH (09:28)
[2020-08-26] MEDS: THIAMINE HCL 100 MG TAB PO SCH (09:28)
[2020-08-26] MEDS: MULTIVITAMIN TAB PO SCH (09:29)
--- NOTE | 2020-08-26 14:07 | Hospitalist Progress Note ---
Date of Service August 26, 2020 Assessment & Plan (1) Urinary tract infection: UTI due to chronic Ashraf catheter. Blood cultures also positive on 08/13. Growing Proteus spc. - Ertapenem x 14 days per ID; end date: 08/27/2020. - No change today. Discharge tomorrow after last dose. (2) Obstructive uropathy: Presented with bladder distention, obstructive uropathy s/p Ashraf replacement with immediate return of 800mL urine. Obstructive uropathy due to malpositioned Ashraf catheter. - Maintain Ashraf catheter (3) DELORIS (acute kidney injury): Elevated BUN and Cr as above in setting of obstructive uropathy. - Avoid nephrotoxic agents - Back to baseline by 08/16. (4) Dysphagia: White plaques in the back of his throat initially. - Continue Nystatin swish and swallow. - GI consulted - [place] no procedure was necessary. - Per dietary, his intake is poor. His sister says he "eats really well" at [facility], but in discussing with Ger Schwab, seems like his weight has been going steadily down. I did chat with him, and he denies nausea, denies dysphagia today, denies particular complaints related to eating. Unsure what else to offer for his weight loss. (5) Nausea & vomiting: Suspect secondary to #1. - Zofran as needed - Resolved. (6) BPH (benign prostatic hyperplasia): Patient with chronic, indwelling Ashraf which was replaced in ER on admission. - Continue Flomax & finasteride - Maintain Ashraf as above (7) Mild cognitive disorder: Noted. - Orientation and assistance as needed - Aspiration precautions - Fall precautions (8) DVT prophylaxis: Heparin 5,000 units SQ Q12h Admission and Anticipated Discharge Date Admission Date: August 13, 2020 Subjective Doing great today. He is in good spirits and has no major issues. Reports no fevers/chills, chest pain, shortness of breath, abdominal pain, nausea, or vomi ting. Physical Exam Constitutional: WD/WN, vitals as above + acute distress Eyes: EOM intact bilaterally; no conjunctival abnormality ENMT: external ear and nose normal, oropharynx normal Neck: trachea midline, no thyromegaly normal visual inspection Respiratory: normal respiratory effort, lungs clear to auscultation no respiratory distress Cardiovascular: RRR, no murmur, no edema Gastrointestinal (Abdomen): Inspection/Auscultation: abdomen normal to inspection; abdomen not distended Musculoskeletal: no cyanosis or clubbing, extremities motor strength 5/5 Skin: no rashes, warm and dry Neurologic: moves all extremities and awake Psychiatric: Orientation: alert and oriented to person; + uncooperative Results & Data Results & [facility] ([facility]) Vital Signs (Past 12 Hours) Vital Signs Temp Pulse Pulse Resp BP Pulse Ox 08/26/20 11:52 36.6 C 89 18 132/72 91 08/26/20 08:25 36.4 C L 80 16 119/64 100 08/26/20 07:14 93 H 08/26/20 04:19 36.7 C 94 H 17 114/57 L 95 PG Care Time/CCT Total # of Minutes Spent Total Time Spent with Patient: Total time spent is greater than 50% in coordination of care (as documented) at patient's floor/unit and/or counseling patient: Coding Level of Care Code 87193 Subseq Hosp Care Lvl 2 Diagnoses Urinary tract infection T83.511A; N39.0 Urinary tract infection type: catheter-associated UTI Indwelling urinary catheter type: indwelling urethral catheter Encounter type: initial encounter Obstructive uropathy N13.9 DELORIS (acute kidney injury) N17.9 Dysphagia R13.10 Nausea & vomiting R11.2 Vomiting type: unspecified Vomiting Intractability: unspecified BPH (benign prostatic hyperplasia) N40.0 Lower urinary tract symptom presence: unspecified whether lower urinary tract symptoms present Mild cognitive disorder F09 DVT prophylaxis Z29.9 (1) Urinary tract infection Urinary tract infection type: catheter-associated UTI Indwelling urinary catheter type: indwelling urethral catheter Encounter type: initial encounter Qualified Code(s): T83.511A - Infection and inflammatory reaction due to indwelling urethral catheter, initial encounter; N39.0 - Urinary tract infection, site not specified (2) Nausea & vomiting Vomiting type: unspecified Vomiting Intractability: unspecified Qualified Code(s): R11.2 - Nausea with vomiting, unspecified (3) BPH (benign prostatic hyperplasia) Lower urinary tract symptom presence: unspecified whether lower urinary tract symptoms present Qualified Code(s): N40.0 - Benign prostatic hyperplasia without lower urinary tract symptoms
[2020-08-26] MEDS: TAMSULOSIN HCL 0.4 MG CAP PO SCH (21:21)
[2020-08-27] MEDS: ERTAPENEM SODIUM 1,000 MG in SODIUM CHLORIDE 0.9% 50 ML IV SCH (03:41)
[2020-08-27] MEDS: FLUTICASONE PROPIONATE NA SPR 16 GM BTL SCH (07:57)
[2020-08-27] MEDS: HEPARIN SOD 5,000 UNIT/0.5 ML VIAL SQ SCH (07:58)
[2020-08-27] MEDS: LIDOCAINE 5% 1 PATCH TD SCH (07:59)
[2020-08-27] MEDS: DOCUSATE SODIUM 100 MG CAP PO SCH (07:59)
[2020-08-27] MEDS: MULTIVITAMIN TAB PO SCH (08:00)
[2020-08-27] MEDS: FINASTERIDE 5 MG TAB PO SCH (08:00)
[2020-08-27] MEDS: THIAMINE HCL 100 MG TAB PO SCH (08:00)
[2020-08-27] MEDS: DICLOFENAC SOD 1% GEL 100 GM TUBE EXT SCH ×2 (08:01)
--- NOTE | 2020-08-27 11:13 | Discharge Summary ---
Date of Service August 27, 2020 Admission HPI Per Admitting Provider Kevin Allen is a 75yo C male [facility] with complaints of lethargy, nausea and vomiting as well as decreased po intake. Patient is bedbound and minimally verbal at baseline. He is unable to answer questions or participate in exam. No family or aides at bedside at present. Patient noted to have a distended bladder in the ER. Imaging confirmed malplacement of the Montoya catheter which was replaced in the ER with appx 1400mL of dark colored cloudy urine. ER Course: Cefepime, Zofran, NSS x 2L Principal Diagnosis Proteus UTI and bacteremia, Acute kidney injury, Obstructive uropathy Discharge Exam Constitutional + cachectic and cooperative ENMT external ear and nose normal, oropharynx normal Neck trachea midline, no thyromegaly Respiratory normal respiratory effort, lungs clear to auscultation Cardiovascular RRR, no murmur, no edema Chest (Breasts) Chest: normal inspection of chest Gastrointestinal (Abdomen) normal bowel sounds, soft, nontender, no hepatosplenomegaly Musculoskeletal Extremities: + extremities abnormal to inspection (with flexion contractures of knees), no cyanosis and no clubbing and atrophy of legs Skin no rashes, warm and dry Neurologic moves all extremities and awake; no focal motor deficits Psychiatric A+Ox3, euthymic affect Genitourinary Montoya in place draining clear yellow urine Lymphatic no lymphedema Discharge Data Allergies Allergy/AdvReac Type Severity Reaction Status Date / Time No Known Allergies Allergy Verified 08/13/20 20:09 Consultations 08/13/20 19:22 ED Decision to Admit Stat 08/14/20 15:20 Consult Gastroenterology Routine 08/16/20 11:32 Consult Infectious Diseases Routine 08/22/20 10:33 Consult Palliative Care Routine Ordered Studies 08/13/20 17:14 CT abd pelvis wo con Stat CXR Hospital Course (1) Urinary tract infection: UTI due to chronic Montoya catheter. Blood cultures also positive on 08/13. Growing Proteus spc. - Ertapenem x 14 days per ID given failure of previous outpt treatment with cefdinir; end date: 08/27/2020. - completed course of abx continue to change out Montoya once monthly (2) Bacteremia: as above, completed tx (3) Obstructive uropathy: Presented with bladder distention, obstructive uropathy s/p Montoya replacement with immediate return of 800mL urine. Obstructive uropathy due to malpositioned Montoya catheter. - Maintain Montoya catheter follows with Urology (4) DELORIS (acute kidney injury): Elevated BUN and Cr as above in setting of obstructive uropathy. - Avoid nephrotoxic agents - Back to baseline by 08/16. (5) Dysphagia: White plaques in the back of his throat initially. - Continue Nystatin swish and swallow. - GI consulted - [place] no procedure was necessary. - Per dietary, his intake is poor. His sister says he "eats really well" at [facility], but in discussing with Ger Schwab, seems like his weight has been going steadily down. I did chat with him, and he denies nausea, denies dysphagia today, denies particular complaints related to eating. Unsure what else to offer for his weight loss. continue protein supplement shakes (6) Nausea & vomiting: Suspect secondary to #1. - Zofran as needed - Resolved. (7) BPH (benign prostatic hyperplasia): Patient with chronic, indwelling Montoya which was replaced in ER on admission. - Continue Flomax & finasteride - Maintain Montoya as above (8) Mild cognitive disorder: Noted. - Orientation and assistance as needed - Aspiration precautions - Fall precautions (9) DVT prophylaxis: Heparin 5,000 units SQ Q12h Dispo-stable for dc back to [facility] Total Time Total Time Spent Total Time Spent (In Minutes): 35 min Total Time Includes: Examination of the Patient, Discharge Planning and Medication Reconciliation Discharge Plan Discharge Items Patient Disposition: Personal [facility] Reason For Visit: OBSRUCTIVE UROPATHY Discharge Diagnosis: Obstructive uropathy, Acute kidney injury, Proteus UTI and bacteremia Condition on Discharge: Good Activity: Resume your previous activity Weightbearing: Full weightbearing Weightbearing Comment: needs assistance Non-emergency contact: Primary Care Provider Call non-emergency contact if: you have any medication questions, your symptoms worsen and you have a fever Follow-up/Referrals: JENA ARTIS [Non-Staff] - Diet: Regular Addtl Attending Provider Instructions: You were admitted with a misplaced Montoya catheter and found to have kidney failure, a UTI, and bacteremia (bacteria in the bloodstream). You were treated with a total of 14 days of IV antibiotics and can now return home. Continue to change out your Montoya catheter on your usual schedule. Pending Studies at Discharge: No Stand-Alone Forms: My [facility] Skilled Items Patient informed of condition?: Yes DNR: No Discharge Level of Care: Other Communicable Disease: No Discharge Prognosis: Improving Lines: None Urinary Catheter: Yes Medications and DC Order Prescriptions: New thiamine HCl (vitamin B1) [Vitamin B-1] 100 mg Tablet 100 mg PO QAM Qty: 30 RF: 0 Continued ascorbic acid (vitamin C) [Vitamin C] 500 mg tablet 500 mg PO DAILY Qty: 30 RF: 5 cholecalciferol (vitamin D3) 25 mcg (1,000 unit) capsule 25 mcg PO DAILY Qty: 30 RF: 5 docusate sodium 100 mg capsule 100 mg PO DAILY Qty: 30 RF: 5 ondansetron HCl 4 mg tablet 4 mg PO Q8H PRN (Reason: nausea and vomiting) Qty: 20 RF: 1 dutasteride [Avodart] 0.5 mg capsule 0.5 mg PO DAILY Qty: 90 RF: 3 fluticasone propionate 50 mcg/actuation spray,suspension 1 spray intranasal BID RF: 0 Ensure Liquid 1 ea PO DAILY RF: 0 tamsulosin 0.4 mg capsule 0.4 mg PO HS RF: 0 nystatin 100,000 unit/gram powder 1 appln TOP TID PRN (Reason: Rash/Irritation) RF: 0 tizanidine 2 mg capsule 2 mg PO BID PRN (Reason: Muscle Spasticity) RF: 0 acetaminophen [Arthritis Pain Reliever] 650 mg Tablet Extended Release 650 mg PO Q12H MDD 3 GMS APAP/24 HOURS PRN (Reason: Fever Or Pain) RF: 0 diclofenac sodium 1 % Gel 2 g TOPICAL QID PRN (Reason: Pain) RF: 0 multivitamin [Daily-Ivan] Tablet 1 tab PO DAILY RF: 0 diclofenac sodium 1 % gel 4 g TOPICAL BID RF: 0 diclofenac sodium 1 % gel 4 gm topical HS RF: 0 Discharge Orders: Discharge Order (Routine); Ordered 08/27/20 Ordered By: Parisa Olivier Admission Data Admit Date/Time: 08/13/20 19:56 Attending Provider: Praisa Olivier Admit Provider: Lilo Lawson Primary Care Provider: Radha Mejía Other Providers: Harsha Mclaughlin [place] ; Edgardo Jim ; Uzma Lopez ; Anthony Lawson I. ; Cm Fisher II ; Ariadna Pierson ; Jovon Munroe ; Melissa Us at [place] ; Tonya Leone Coding Level of Care Code D/C Day Management >30 mins Diagnoses Urinary tract infection T83.511A; N39.0 Urinary tract infection type: catheter-associated UTI Indwelling urinary catheter type: indwelling urethral catheter Encounter type: initial encounter Bacteremia R78.81 Obstructive uropathy N13.9 DELORIS (acute kidney injury) N17.9 Dysphagia R13.10 Nausea & vomiting R11.2 Vomiting type: unspecified Vomiting Intractability: unspecified BPH (benign prostatic hyperplasia) N40.0 Lower urinary tract symptom presence: unspecified whether lower urinary tract symptoms present Mild cognitive disorder F09 DVT prophylaxis Z29.9
== END 2020-08-27 13:21 | disposition home or self-care (01) | DRG 699 ==
LOC: ED 17:04 → SUATTDRO 19:56 → 2W 19:56

== ENCOUNTER 2020-11-07 17:25 | Inpatient (IN) ==
[2020-11-07] MEDS ORDERED: AMPICILLIN/SULBACTAM SOD 3,000 MG in 0.9 % SODIUM CHLORIDE 100 ML IV STA (17:55)
--- NOTE | 2020-11-07 18:03 | Emergency Department Note ---
Impression & Plan Cellulitis of scrotum, Acute UTI, DVT (deep venous thrombosis), Failure of outpatient treatment ED Provider Note NAME: JOSE F VITAL AGE: 75 SEX: M : 1945 ARRIVES VIA: Ambulance INFORMANT: [Patient][ems, nursing] ED PROVIDER(S): [Fidel Leon MD] CHIEF COMPLAINT: Penile irritation HISTORY OF PRESENT ILLNESS: The patient is a 75-year-old male with a chronic indwelling Urena catheter. He is nonambulatory. He has contractures to his lower extremities which prevent him from walking. The patient was in this ED about a month ago and diagnosed with a Proteus UTI. He was placed on Keflex. Today, the patient was sent to the ED for inflammation and swelling to the scrotal area and penile shaft. His urine is again cloudy. The patient is a poor historian but denies pain. He has not noticed fevers or chills or vomiting. He states he feels really in his baseline health. Given the patient's MR, no further history obtainable. REVIEW OF SYSTEMS: Unobtainable given the mental state. PMHx/PSHx: See Below SOCIAL HISTORY: See Below. PHYSICAL EXAM: GENERAL: Patient is in no acute distress. HEENT: No acute trauma, normocephalic atraumatic, mucous membranes moist, no nasal congestion, no scleral icterus. NECK: No stridor, no adenopathy, no meningismus, trachea is midline. LUNGS: Clear to auscultation bilaterally, no wheeze, no rhonchi, breath sounds equal. HEART: Without murmurs gallops or rubs, regular rate and rhythm. ABDOMEN: Soft, nontender, bowel sounds positive, no hernias, no peritonitis. EXTREMITIES: No cyanosis or edema, he has contractures of both lower extremities. NEUROLOGIC: Awake and alert, moves all extremities, poor historian. SKIN: No rash, no jaundice, no diaphoresis. Groin: The patient has some penile shaft erythema and some scrotal erythema. 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 There appears to be some puslike discharge around the Urena catheter. The urine in the Urena bag is cloudy. DIFFERENTIAL DIAGNOSIS: Sepsis, UTI, pneumonia, metabolic abnormality, electrolyte abnormalities, cardiac sources, pelvic abscess or scrotal abscess, cellulitis, UTI, bacteremia, intracerebral event, toxicologic etiology, neurologic event, as well as other pathologies. EMERGENCY DEPARTMENT COURSE/PROCEDURES: MEDICAL DECISION MAKING: There is no leukocytosis. The patient is anemic but this is a chronic looking back at previous testing. There is a normal platelet count. No significant electrolyte abnormality or kidney failure. Lactic acid level is not elevated making sepsis less likely. There is no concerning liver enzyme elevation. Urinalysis is consistent with infection, urine culture is pending. Abdominal and pelvis CT does show evidence for a superficial femoral vein DVT. No abscess seen. Scrotal cellulitis was suggested, there was no air in the soft tissues, no abscess seen. The bladder was inflamed, the Urena was in proper position. On exam, the patient did have erythema to the scrotum and penile shaft. There was some puslike discharge noted coming from around the Urena catheter. There was what appears to be acute on chronic breakdown of the penile shaft. Patient received IV Unasyn. This was thought reasonable coverage given the recent urine culture results. The Unasyn was also thought reasonable for the potential of scrotal cellulitis. Given the persistent UTI, given the penile and scrotal erythema, given the abnormal findings of the penile shaft with regards to the Urena, given the DVT, a hospitalization was felt warranted. I spoke to the patient, I did speak with case management. The on-call hospitalist was consulted. Past Med/Surg History Medical History (Updated 11/07/20 @ 21:17 by Fidel Leon MD) Allergic rhinitis At high risk for falls Biliary dyskinesia Catheter-associated urinary tract infection Chronic indwelling Urena catheter Cognitive changes Dependent for wheelchair mobility GERD (gastroesophageal reflux disease) Hypercholesteremia Insomnia Knee pain, right Lumbar pain on palpation Muscle weakness (generalized) Primary cerebellar degeneration Sleep disturbances Surgical History History of cholecystectomy S/P hip replacement Status post hip replacement Family History Sister Breast cancer Other No pertinent family history Denies family history of Ovarian cancer Prostate cancer Myocardial infarction Colorectal cancer Social History Smoking Status: Never smoker Tobacco Type: Cigarettes Hx Alcohol Use: No Hx Substance Use: No Preferred Language: Italian Communication Ability: Impaired Beliefs That Will Affect Care: None marital status: Single Current Living Situation: Snf Current Living Situation Comment: [facility] current occupational status: disabled How many Children do You have: 0 Feels Safe at Home: Yes caffeine: Yes Dental Care, Regularly: No Physical Activity Frequency: Other Physical Activity Frequency Comment: Unable to exercise due to being disabled. Seatbelt Use: always Sunscreen Use: No Assistive Devices: Denture - Upper and Glasses Allergies Allergies Allergy/AdvReac Type Severity Reaction Status Date / Time No Known Allergies Allergy Verified 11/07/20 21:07 Home Meds Home Medications Medication Instructions Recorded Confirmed diclofenac sodium 4 g TOPICAL BID 04/16/20 10/14/20 diclofenac sodium 4 gm TOPICAL HS 04/16/20 10/14/20 multivitamin [Daily-Ivan] 1 tab PO QAM 04/16/20 10/14/20 fluticasone propionate 1 spray INTRANASAL BIDM 06/03/20 10/14/20 Ensure 1 ea PO QAM 07/04/20 10/14/20 acetaminophen [Arthritis Pain 650 mg PO Q12H PRN MDD 3 GMS 07/04/20 10/14/20 Reliever] APAP/24 HOURS diclofenac sodium 2 g TOPICAL QID PRN 07/04/20 10/14/20 nystatin 1 appln TOP TID 07/04/20 10/14/20 tamsulosin 0.4 mg PO HS 07/04/20 10/14/20 tizanidine 2 mg PO BID PRN 07/04/20 10/14/20 ondansetron HCl 4 mg PO Q8H PRN 09/12/20 10/14/20 ascorbic acid (vitamin C) [Vitamin 500 mg PO QAM 10/14/20 10/14/20 C] cholecalciferol (vitamin D3) 25 mcg PO QAM 10/14/20 10/14/20 docusate sodium 100 mg PO QAM 10/14/20 10/14/20 dutasteride [Avodart] 0.5 mg PO QAM 10/14/20 10/14/20 Previous Rx's Medication Instructions Recorded thiamine HCl (vitamin B1) [Vitamin 100 mg PO QAM #30 tab 08/27/20 B-1] sulfamethoxazole 800 1 tab PO BID #20 tab 10/16/20 mg-trimethoprim 160 mg tablet Results & Data (ED) Vital Signs Vital Signs - 24 hr 11/07/20 17:41 11/07/20 18:00 11/07/20 18:30 Temperature 37.1 C Temperature Source Oral Pulse Rate 82 81 Pulse Rate [Apical] Pulse Rate from SpO2 Sensor 82 Respiratory Rate 12 16 19 Blood Pressure 120/58 L 129/58 L Blood Pressure [Right Arm] Blood Pressure Mean 78 81 Blood Pressure Mean [Right Arm] Blood Pressure Position [Right Arm] Pulse Oximetry 99 100 Oxygen Delivery Method Room Air Room Air Sepsis New/Unexplained Change in Mental Status No Sepsis Action Taken by Nursing No Action Required 11/07/20 18:35 11/07/20 19:00 11/07/20 19:09 Temperature Temperature Source Pulse Rate 72 Pulse Rate [Apical] 81 64 Pulse Rate from SpO2 Sensor Respiratory Rate 21 17 16 Blood Pressure 138/75 Blood Pressure [Right Arm] 138/75 Blood Pressure Mean 96 Blood Pressure Mean [Right Arm] 96 Blood Pressure Position [Right Arm] Lying Pulse Oximetry 97 97 Oxygen Delivery Method Room Air Room Air Sepsis New/Unexplained Change in Mental Status Sepsis Action Taken by Nursing 11/07/20 20:41 Temperature Temperature Source Pulse Rate Pulse Rate [Apical] 68 Pulse Rate from SpO2 Sensor Respiratory Rate 16 Blood Pressure Blood Pressure [Right Arm] 99/50 L Blood Pressure Mean Blood Pressure Mean [Right Arm] 66 Blood Pressure Position [Right Arm] Lying Pulse Oximetry 99 Oxygen Delivery Method Room Air Sepsis New/Unexplained Change in Mental Status Sepsis Action Taken by Snf Medications Current Medication List: was personally reviewed by me Laboratory Data Attestation: I reviewed the patient's lab results. Result diagrams: 11/07/20 18:24 11/07/20 18:24 Lab Results 11/07/20 11/07/20 11/07/20 Range/Units 18:24 18:24 18:24 WBC 7.55 (4.8-10.8) K/uL RBC 3.61 L (4.7-6.1) M/uL Hgb 10.9 L (14.0-18.0) g/dL Hct 32.1 L (42-52) % MCV 88.9 (80-100) fL MCH 30.2 (25-34) pg MCHC 34.0 (32-36) g/dL RDW Std Deviation 45.0 (36.4-46.3) fL RDW Coeff of Kendal 13.8 (11.5-14.5) % Plt Count 393 (130-400) K/uL MPV 8.4 (7.4-10.4) fL Immature Gran % (Auto) 0.1 % Neut % (Auto) 61.8 % Lymph % (Auto) 22.5 % [place] % (Auto) 10.3 % Eos % (Auto) 4.9 % Baso % (Auto) 0.4 % Neut # (Auto) 4.66 (1.4-6.5) K/uL Lymph # (Auto) 1.70 (1.2-3.4) K/uL [place] # (Auto) 0.78 H (0.11-0.59) K/uL Eos # (Auto) 0.37 (0-0.5) K/uL Baso # (Auto) 0.03 (0-0.2) K/uL Immature Gran # (Auto) 0.01 (0.00-0.02) K/uL Sodium 138 (136-145) mmol/L Potassium 4.1 (3.5-5.1) mmol/L Chloride 105 (98-107) mmol/L Carbon Dioxide 28 (21-32) mmol/L Anion Gap 5.0 (3-11) BUN 14 (7-18) mg/dl Creatinine 0.72 (0.6-1.4) mg/dl Est Cr Clr Drug Dosing Not Reportable Est GFR ( Amer) 107.3 Est GFR (Non-Af Amer) 92.5 BUN/Creatinine Ratio 19.9 (10-20) Glucose 83 (70-99) mg/dl Lactate 1.1 (0.4-2.0) mmol/L Calcium 8.7 (8.5-10.1) mg/dl Total Bilirubin 0.4 (0.2-1) mg/dl AST 20 (15-37) U/L ALT 24 (12-78) U/L Alkaline Phosphatase 84 (45-117) U/L Total Protein 7.5 (6.4-8.2) gm/dl Albumin 3.3 L (3.4-5.0) gm/dl Globulin 4.2 H (2.5-4.0) gm/dl Albumin/Globulin Ratio 0.8 L (0.9-2) Urine Color Urine Appearance (Clear) Urine pH (4.5-7.5) Ur Specific [place] (1.000-1.030) Urine Protein (Negative) Urine Glucose (UA) (Negative) Urine Ketones (Negative) Urine Blood (Negative) Urine Nitrite (Negative) Urine Bilirubin (Negative) Urine Urobilinogen (Negative) Ur Leukocyte Esterase (Negative) Urine RBC (0-4) /hpf Urine WBC (0-5) /hpf Ur Epithelial Cells (0-5) /lpf Urine Bacteria (Negative) Hyaline Casts (0-5) /lpf 11/07/20 Range/Units 19:12 WBC (4.8-10.8) K/uL RBC (4.7-6.1) M/uL Hgb (14.0-18.0) g/dL Hct (42-52) % MCV (80-100) fL MCH (25-34) pg MCHC (32-36) g/dL RDW Std Deviation (36.4-46.3) fL RDW Coeff of Kendal (11.5-14.5) % Plt Count (130-400) K/uL MPV (7.4-10.4) fL Immature Gran % (Auto) % Neut % (Auto) % Lymph % (Auto) % [place] % (Auto) % Eos % (Auto) % Baso % (Auto) % Neut # (Auto) (1.4-6.5) K/uL Lymph # (Auto) (1.2-3.4) K/uL [place] # (Auto) (0.11-0.59) K/uL Eos # (Auto) (0-0.5) K/uL Baso # (Auto) (0-0.2) K/uL Immature Gran # (Auto) (0.00-0.02) K/uL Sodium (136-145) mmol/L Potassium (3.5-5.1) mmol/L Chloride (98-107) mmol/L Carbon Dioxide (21-32) mmol/L Anion Gap (3-11) BUN (7-18) mg/dl Creatinine (0.6-1.4) mg/dl Est Cr Clr Drug Dosing Est GFR ( Amer) Est GFR (Non-Af Amer) BUN/Creatinine Ratio (10-20) Glucose (70-99) mg/dl Lactate (0.4-2.0) mmol/L Calcium (8.5-10.1) mg/dl Total Bilirubin (0.2-1) mg/dl AST (15-37) U/L ALT (12-78) U/L Alkaline Phosphatase (45-117) U/L Total Protein (6.4-8.2) gm/dl Albumin (3.4-5.0) gm/dl Globulin (2.5-4.0) gm/dl Albumin/Globulin Ratio (0.9-2) Urine Color Yellow Urine Appearance Clear (Clear) Urine pH 7.0 (4.5-7.5) Ur Specific [place] 1.018 (1.000-1.030) Urine Protein Negative (Negative) Urine Glucose (UA) Negative (Negative) Urine Ketones Trace H (Negative) Urine Blood Negative (Negative) Urine Nitrite Positive A (Negative) Urine Bilirubin Negative (Negative) Urine Urobilinogen Negative (Negative) Ur Leukocyte Esterase 1+ H (Negative) Urine RBC 0-4 (0-4) /hpf Urine WBC >30 H (0-5) /hpf Ur Epithelial Cells 0-5 (0-5) /lpf Urine Bacteria 2+ H (Negative) Hyaline Casts 0-5 (0-5) /lpf Administered Medications Discontinued Medications Ampicillin Sodium/Sulbactam Sodium 3,000 mg/ Sodium Chloride 108 mls @ 200 mls/hr IV NOW STA; Protocol Stop: 11/07/20 18:27 Last Infusion: 11/07/20 20:10 Dose: 0 mls/hr Documented by: [id number] Admin: 11/07/20 19:04 Dose: 200 mls/hr Documented by: [id number] Ioversol (Ioversol 100ml) 92 ml IV ONCE ONE Stop: 11/07/20 19:26 Last Admin: 11/07/20 19:26 Dose: 92 ml Documented by: [id number] Imaging Data Radiologist's Impression: ABDOMEN AND PELVIS CT WITH IV CONTRAST CT DOSE: 618.96 mGy.cm HISTORY: Scrotal swelling. poss pelvic/scrotal abscess--infection with urena TECHNIQUE: Multiaxial CT images of the abdomen and pelvis were performed following the use of intravenous contrast. A dose lowering technique was utilized adhering to the principles of ALARA. COMPARISON STUDY: Abdomen and pelvis CT 08/13/2020. FINDINGS: The lung bases are clear. Suboptimal evaluation of the abdomen and pelvis due to the patient's positioning, streak artifact from the overlapping arms, and motion artifact. No definite pneumoperitoneum or pneumatosis. Severe osteoarthritis within the bilateral hips, right greater than the left. There is a right dynamic hip screw in place. No suspicious lytic are blastic osseous lesions. There is a 9 mm hypodense lesion within the left hepatic dome. This is technically too small to characterize but likely benign. The gallbladder surgically absent. The spleen and pancreas appear to be within normal limits. There are few subcentimeter hypodense lesions within the kidneys. These are technically too small to characterize but favor cysts. No hydronephrosis. No retroperitoneal lymphadenopathy. Normal caliber abdominal aorta. The main portal vein appears patent. Bilateral testes appear to be located within the distal inguinal canals best seen on image 314. This remains unchanged. There is edema and enhancement throughout the scrotum. No definite loculated fluid collections to suggest an abscess. No soft tissue gas identified within the scrotum or perineum. Mild edema/fat stranding within the perineum. There is mild diffuse body wall edema. There is a Urena catheter located within the bladder. There is mild bladder wall thickening. Moderate to large amount of well-formed stool seen throughout the colon and rectum. Suboptimal evaluation for bowel pathology due to the lack of intraperitoneal fat and the streak artifact. However, there is no definite bowel wall thickening or obstruction. Thrombus identified within the left superficial femoral vein. IMPRESSION: 1. Edema and enhancement throughout the scrotum. This could be chronic edema or cellulitis. No definite loculated fluid collections to suggest an abscess. There is no soft tissue gas identified within the scrotum/perineum. 2. 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 This remains unchanged. 3. There is a Urena catheter within the mildly thickened bladder wall. Recommend correlation with urinalysis to exclude a cystitis. 4. There is thrombus within the left superficial femoral vein consistent with a deep vein thrombosis. 5. No definite bowel wall thickening or obstruction. 6. Moderate to large amount well-formed stool seen throughout the colon. 7. Additional findings as described above. Discharge Plan Visit Data Chief Complaint: Penis Pain Stated Complaint: PENIS PAIN, SWELLING AROUND CATH. ED Provider: Fidel Leon Discharge Problem: Cellulitis of scrotum, Acute UTI, DVT (deep venous thrombosis), Failure of outpatient treatment Patient Disposition: Admitted As Inpatient Condition: Fair Forms Stand Alone Forms: [facility] Prescriptions Prescriptions: No Action fluticasone propionate 50 mcg/actuation spray,suspension 1 spray intranasal BID RF: 0 Ensure Liquid 1 ea PO DAILY RF: 0 tamsulosin 0.4 mg capsule 0.4 mg PO HS RF: 0 nystatin 100,000 unit/gram powder 1 appln TOP TID RF: 0 tizanidine 2 mg capsule 2 mg PO BID PRN (Reason: Muscle Spasticity) RF: 0 acetaminophen [Arthritis Pain Reliever] 650 mg Tablet Extended Release 650 mg PO Q12H MDD 3 GMS APAP/24 HOURS PRN (Reason: Fever Or Pain) RF: 0 diclofenac sodium 1 % Gel 2 g TOPICAL QID PRN (Reason: Pain) RF: 0 thiamine HCl (vitamin B1) [Vitamin B-1] 100 mg Tablet 100 mg PO QAM Qty: 30 RF: 0 ondansetron HCl 4 mg tablet 4 mg PO Q8H PRN (Reason: Nausea And Vomiting) RF: 0 multivitamin [Daily-Ivan] Tablet 1 tab PO QAM RF: 0 diclofenac sodium 1 % gel 4 g TOPICAL BID RF: 0 diclofenac sodium 1 % gel 4 gm topical HS RF: 0 ascorbic acid (vitamin C) [Vitamin C] 500 mg tablet 500 mg PO QAM RF: 0 docusate sodium 100 mg capsule 100 mg PO QAM RF: 0 cholecalciferol (vitamin D3) 25 mcg (1,000 unit) capsule 25 mcg PO QAM RF: 0 dutasteride [Avodart] 0.5 mg capsule 0.5 mg PO QAM RF: 0 Referrals Referrals: JENA ARTIS EYAD [Primary Care Provider] - Discharge Problem: DVT (deep venous thrombosis) Qualifiers: DVT location: lower extremity Affected thrombotic vein of extremity: unspecified lower extremity proximal vein Chronicity: acute Laterality: left Qualified Code(s): I82.4Y2 - Acute embolism and thrombosis of unspecified deep veins of left proximal lower extremity
[2020-11-07 18:35] LABS: Basophils # (auto) 0.03 K/uL (0-0.2); Basophils % (auto) 0.4 %; Eosinophils # (auto) 0.37 K/uL (0-0.5); Eosinophils % (auto) 4.9 %; Hematocrit (blood only) 32.1 % (42-52); Hemoglobin 10.9 g/dL (14.0-18.0); Immature Granulocytes # (auto) 0.01 K/uL (0.00-0.02); Immature Granulocytes % (auto) 0.1 %; Lymphocytes % (auto) 22.5 %; Mean Corpuscular Hemoglobin 30.2 pg (25-34); Mean Corpuscular Volume 88.9 fL (80-100); Mean Platelet Volume 8.4 fL (7.4-10.4); Monocytes # (auto) 0.78 K/uL (0.11-0.59); Monocytes % (auto) 10.3 %; Neutrophils # (auto) 4.66 K/uL (1.4-6.5); Neutrophils % (auto) 61.8 %; Platelet Count 393 K/uL (130-400); RDW Coefficient of Variation 13.8 % (11.5-14.5); Red Blood Count 3.61 M/uL (4.7-6.1); White Blood Count 7.55 K/uL (4.8-10.8)
[2020-11-07 18:52] LABS: Alanine Aminotransferase 24 U/L (12-78); Albumin Level 3.3 gm/dl (3.4-5.0); Aspartate Aminotransferase 20 U/L (15-37); BUN Creatinine Ratio 19.9 (10-20); Blood Urea Nitrogen 14 mg/dl (7-18); Calcium 8.7 mg/dl (8.5-10.1); Carbon Dioxide 28 mmol/L (21-32); Chloride 105 mmol/L (98-107); Est GFR (African American) 107.3; Est GFR (Non-African American) 92.5; Glucose 83 mg/dl (70-99); Potassium 4.1 mmol/L (3.5-5.1); Sodium 138 mmol/L (136-145)
[2020-11-07 18:54] LABS: Albumin Globulin Ratio 0.8 (0.9-2); Alkaline Phosphatase 84 U/L (45-117); Bilirubin,Total 0.4 mg/dl (0.2-1); Globulin 4.2 gm/dl (2.5-4.0); Total Protein 7.5 gm/dl (6.4-8.2)
[2020-11-07] MEDS ORDERED: OPTIRAY 320 100ml IV ONE (19:25)
[2020-11-07 19:42] LABS: Appearance Urine Clear (Clear); Bilirubin Urine Negative (Negative); Blood Urine Negative (Negative); Color Urine Yellow; Glucose Urine UA Negative (Negative); Ketones Urine Trace (Negative); Leukocyte Esterase Urine 1+ (Negative); Nitrite Urine Positive (Negative); Protein Urine Negative (Negative); Specific Gravity Urine 1.018 (1.000-1.030); Urobilinogen Urine Negative (Negative)
[2020-11-07 19:50] LABS: Bacteria Urine 2+ (Negative); Epithelial Cell Urine 0-5 /lpf (0-5); Hyaline Casts Urine 0-5 /lpf (0-5); RBC Urine 0-4 /hpf (0-4); WBC Urine >30 /hpf (0-5)
--- NOTE | 2020-11-07 20:01 | CT Scan Report ---
ABDOMEN AND PELVIS CT WITH IV CONTRAST CT DOSE: 618.96 mGy.cm HISTORY: Scrotal swelling. poss pelvic/scrotal abscess--infection with urena TECHNIQUE: Multiaxial CT images of the abdomen and pelvis were performed following the use of intrave nous contrast. A dose lowering technique was utilized adhering to the principles of ALARA. COMPARISON STUDY: Abdomen and pelvis CT 08/13/2020. FINDINGS: The lung bases are clear. Suboptimal evaluation of the abdomen and pelvis due to the patien t's positioning, streak artifact from the overlapping arms, and motion artifact. No definite pneumope ritoneum or pneumatosis. Severe osteoarthritis within the bilateral hips, right greater than the left . There is a right dynamic hip screw in place. No suspicious lytic are blastic osseous lesions. There is a 9 mm hypodense lesion within the left hepatic dome. This is technically too small to characteri ze but likely benign. The gallbladder surgically absent. The spleen and pancreas appear to be within normal limits. There are few subcentimeter hypodense lesions within the kidneys. These are technicall y too small to characterize but favor cysts. No hydronephrosis. No retroperitoneal lymphadenopathy. N ormal caliber abdominal aorta. The main portal vein appears patent. Bilateral testes appear to be loc ated within the distal inguinal canals best seen on image 314. This remains unchanged. There is edema and enhancement throughout the scrotum. No definite loculated fluid collections to suggest an absces s. No soft tissue gas identified within the scrotum or perineum. Mild edema/fat stranding within the perineum. There is mild diffuse body wall edema. There is a Urena catheter located within the bladder . There is mild bladder wall thickening. Moderate to large amount of well-formed stool seen throughou t the colon and rectum. Suboptimal evaluation for bowel pathology due to the lack of intraperitoneal fat and the streak artifact. However, there is no definite bowel wall thickening or obstruction. Thro mbus identified within the left superficial femoral vein. IMPRESSION: 1. Edema and enhancement throughout the scrotum. This could be chronic edema or cellulitis. No defini te loculated fluid collections to suggest an abscess. There is no soft tissue gas identified within t he scrotum/perineum. 2. 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 This remains unchanged. 3. There is a Urena catheter within the mildly thickened bladder wall. Recommend correlation with uri nalysis to exclude a cystitis. 4. There is thrombus within the left superficial femoral vein consistent with a deep vein thrombosis. 5. No definite bowel wall thickening or obstruction. 6. Moderate to large amount well-formed stool seen throughout the colon. 7. Additional findings as described above. ACT 112: Negative or not required by law. Electronically signed by: Prudencio Davis M.D. 11/07/2020 8:00 PM
--- NOTE | 2020-11-07 21:37 | History & Physical Report ---
Date of Service November 07, 2020 Assessment & Plan (1) UTI (urinary tract infection) due to urinary indwelling Ashraf catheter: 75-year-old male past medical history significant for dementia, cerebellar degeneration, upper and lower extremity contractures, BPH with chronic indwelling Ashraf and history of multiple UTIs admitted for complicated UTI and scrotal/penile cellulitis. Complicated UTI/cellulitis of genital region: Presenting complaint of penile pain and swelling around area of indwelling Ashraf. On presentation with copious purulent drainage around catheter site per ER physician. Ashraf replaced and area cleaned to remove purulent discharge. No findings on imaging suggestive of abscess or Supa's. Patient is not septic. No leukocytosis on CBC. UCx and BCx collected. Patient has a history of UTIs in the past sensitive to Unasyn (chiefly Proteus infections), will start Unasyn here and adjust pending cultures. Nystatin q8h to penis/scrotum area for questionable Candidal component. DVT: Incidentally noted on CTAP to have a thrombus within the left superficial femoral vein consistent with a deep vein thrombosis. We will start heparin GTT now, with plan for likely DOAC starting tomorrow pending urology consult. Patient may be a good candidate for IVC placement if he is intolerant of anticoagulation. Consider vascular surgery consult if appropriate for IVC. Poor oral intake, dysphagia: History of. Aspiration precautions, regular pured diet and advance consistency as able. Patient is on Ensure at home. Boost twice daily while admitted. Anemia: History of, with baseline hemoglobin 10-12. On admission with hemoglobin 10.9; normal MCV. Likely secondary to chronic malnutrition, no findings suggestive of acute bleed. Peripheral smear ordered with AM labwork. Muscular contractures: Continue home tizanidine 2 mg twice daily as needed. Chronic knee pain: Continue home Voltaren gel. CODE STATUS: Full code FEN/GI: Regular pured diet DVT prophylaxis: Heparin GTT Dispo: Med/Surg for IV antibiotics, Urology consult in the morning (2) Cellulitis of scrotum: (3) Chronic indwelling Ashraf catheter: (4) Muscle contracture: (5) Primary cerebellar degeneration: (6) Knee pain: (7) BPH (benign prostatic hyperplasia): (8) DVT (deep venous thrombosis): History of Present Illness Chief Complaint: penile pain Primary Care Provider: [facility] 75-year-old male past medical history significant for dementia, cerebellar degeneration, upper and lower extremity contractures, BPH with chronic indwelling Ashraf and history of multiple UTIs presented to ER from [facility] for complaints of penile pain and swelling around his catheter site. Patient himself is a poor historian, appears frustrated and uncomfortable but is able to qualify what is bothering him. When asked, he denied chest pain, shortness of breath, belly pain. He responded no to penile pain when first asked, but replied yes when asked a few minutes later. In the ER patient was found to be hemodynamically stable, no white count, catheter site with copious purulent appearing discharge and swelling and erythema to the penile shaft and scrotum. Also noted to have erosion of the penile shaft secondary to his chronic catheter. UA appeared consistent with infection, urine and blood cultures were collected and patient was started on Unasyn given his history of Proteus UTIs. Allergies Allergy/AdvReac Type Severity Reaction Status Date / Time No Known Allergies Allergy Verified 11/07/20 21:07 Home Medications Medication Instructions Recorded Confirmed Type diclofenac sodium 4 g TOPICAL BID 04/16/20 11/07/20 History diclofenac sodium 4 gm TOPICAL HS 04/16/20 11/07/20 History multivitamin [Daily-Ivan] 1 tab PO QAM 04/16/20 11/07/20 History fluticasone propionate 1 spray INTRANASAL BID 06/03/20 11/07/20 History Ensure 1 ea PO DAILY 07/04/20 11/07/20 History acetaminophen [Arthritis Pain 650 mg PO Q12H PRN MDD 3 GMS 07/04/20 11/07/20 History Reliever] APAP/24 HOURS diclofenac sodium 2 g TOPICAL QID PRN 07/04/20 11/07/20 History nystatin 1 appln TOP TID 07/04/20 11/07/20 History tamsulosin 0.4 mg PO HS 07/04/20 11/07/20 History tizanidine 2 mg PO BID PRN 07/04/20 11/07/20 History thiamine HCl (vitamin B1) [Vitamin 100 mg PO QAM #30 tab 08/27/20 11/07/20 Rx B-1] ondansetron HCl 4 mg PO Q8H PRN 09/12/20 11/07/20 History ascorbic acid (vitamin C) [Vitamin 500 mg PO QAM 10/14/20 11/07/20 History C] cholecalciferol (vitamin D3) 25 mcg PO QAM 10/14/20 11/07/20 History docusate sodium 100 mg PO QAM 10/14/20 11/07/20 History dutasteride [Avodart] 0.5 mg PO QAM 10/14/20 11/07/20 History Past Med/Surg History Medical History (Updated 11/07/20 @ 21:33 by Jayshree Heredia DO) Allergic rhinitis At high risk for falls Biliary dyskinesia Catheter-associated urinary tract infection Chronic indwelling Ashraf catheter Cognitive changes Dependent for wheelchair mobility GERD (gastroesophageal reflux disease) Hypercholesteremia Insomnia Knee pain, right Lumbar pain on palpation Muscle weakness (generalized) Primary cerebellar degeneration Sleep disturbances Surgical History History of cholecystectomy S/P hip replacement Status post hip replacement Family History Sister Breast cancer Other No pertinent family history Denies family history of Ovarian cancer Prostate cancer Myocardial infarction Colorectal cancer Social History Smoking Status: Unknown if ever smoked Tobacco Type: Cigarettes Hx Alcohol Use: No Hx Substance Use: No Preferred Language: Zambian Communication Ability: Effective Financial Services Education Consultant Required: No Beliefs That Will Affect Care: None marital status: Single Current Living Situation: [facility] Current Living Situation Comment: [facility] current occupational status: disabled How many Children do You have: 0 Other Information That Helps Us Care for You: No Feels Safe at Home: Yes Safety Concerns: Feels Safe At This Time caffeine: Yes Dental Care, Regularly: No Physical Activity Frequency: Other Physical Activity Frequency Comment: Unable to exercise due to being disabled. Seatbelt Use: always Sunscreen Use: No Assistive Devices: Denture - Upper and Glasses Review of Systems Review of Systems: All systems reviewed & are unremarkable except as noted in HPI & below Review of systems difficult to obtain secondary to baseline mental status, however able to answer the following: Constitutional: + malaise (Reports feeling unwell); no fever and no chills Respiratory: no cough and no dyspnea Cardiovascular: no chest pain Gastrointestinal: no abdominal pain Genitourinary: + genital pain Physical Exam Constitutional: well developed and + thin; no acute distress Eyes: PERRL, conjunctivae normal, anicteric sclerae ENMT: Poor dentition, external ear and nose normal Neck: normal visual inspection Respiratory: normal respiratory effort, lungs clear to auscultation Cardiovascular: RRR, no murmur, no edema Gastrointestinal (Abdomen): Inspection/Auscultation: normal bowel sounds; abdomen not distended Percussion/Palpation: abdomen soft; abdomen nontender Musculoskeletal: Bilateral upper and lower extremities with contractures Skin: Erythematous, tender penile shaft and scrotum Neurologic: AAOx1 PERRL No tremor Psychiatric: Orientation: alert and oriented to person Affect: + anxious affect Genitourinary: Ashraf in place. Noted to have erosion of dorsal penile shaft secondary to chronic indwelling Ashraf, Ashraf inserts wear the penile shaft and scrotum meet. Results & Data Results & Data ([facility]) Vital Signs (Past 12 Hours) Vital Signs Temp Pulse Pulse Resp BP BP Pulse Ox 11/07/20 20:41 68 16 99/50 L 99 11/07/20 19:09 64 16 138/75 97 11/07/20 19:00 72 17 138/75 11/07/20 18:35 81 21 97 11/07/20 18:30 81 19 11/07/20 18:00 16 129/58 L 100 11/07/20 17:41 37.1 C 82 12 120/58 L 99 Code Status & VTE Plan VTE Prophylaxis Plan VTE Prophylaxis will be ordered: Yes Supervising Physician Co-Signing Physician Notes Patient seen and examined, chart reviewed, case discussed with DR. Heredia and I agree with her assessment and plan as above. Briefly, patient is a 75yo male [place] resident with chronic indwelling Ashraf presenting with UTI, Proximal DVT and erosion of penis by Ashraf catheter. Ashraf replaced in ER On exam he is afebrile, HD stable, NAD HEENT - NC/AT, PERRL, MMM, Neck supple Heart - +S1/S2, regular Lungs - CTA Abd - +BS, soft, NT/ND Ext - flexion contractures, penis with midlilne erosion of shaft, yellow discharge, no active bleeding, no crepitus/bullae Assessment/Plan: -Unasyn for UTI - follow culutres -Hepartin gtt for DVT - if tolerated without bleeding then initiate DOAC -Urology consultation appreciated Resident Activity Tracking Resident Involvement: Resident Care Provided Care Provided: Adult [facility] Medicine (1) BPH (benign prostatic hyperplasia) Lower urinary tract symptom presence: unspecified whether lower urinary tract symptoms present Qualified Code(s): N40.0 - Benign prostatic hyperplasia without lower urinary tract symptoms (2) Muscle contracture Muscle contracture area: unspecified site Qualified Code(s): M62.40 - Contracture of muscle, unspecified site (3) DVT (deep venous thrombosis) Affected thrombotic vein of extremity: unspecified lower extremity proximal vein Chronicity: acute DVT location: lower extremity Laterality: left Qualified Code(s): I82.4Y2 - Acute embolism and thrombosis of unspecified deep veins of left proximal lower extremity (4) UTI (urinary tract infection) due to urinary indwelling Ashraf catheter Encounter type: initial encounter Indwelling urinary catheter type: indwelling urethral catheter Qualified Code(s): T83.511A - Infection and inflammatory reaction due to indwelling urethral catheter, initial encounter; N39.0 - Urinary tract infection, site not specified (5) Knee pain Chronicity: chronic Laterality: bilateral Qualified Code(s): M25.561 - Pain in right knee; M25.562 - Pain in left knee; G89.29 - Other chronic pain
[2020-11-07] MEDS ORDERED: Heparin IV Adult Wt-Based Standard *NO* Bolus Protocol IV SCH (22:43)
[2020-11-07] MEDS ORDERED: ONDANSETRON 4 MG OD TAB PO PRN (22:51)
[2020-11-07 23:06] LABS: Partial Thromboplastin Ratio 1.1; Partial Thromboplastin Time 28.2 Seconds (21.0-31.0); Prothrombin Time 10.4 Seconds (9.0-12.0)
[2020-11-07] MEDS: PATIENT'S HEIGHT AND/OR WEIGHT NEEDED SCH (23:44)
[2020-11-07] MEDS: AMPICILLIN/SULBACTAM SOD 3,000 MG in 0.9 % SODIUM CHLORIDE 100 ML IV SCH (23:57)
[2020-11-08] MEDS: DUTASTERIDE: ORDER AWAITING ACTION SCH ×4 (00:38→21:22)
[2020-11-08] MEDS: HEPARIN SODIUM/DEXTROSE 25,000 UNITS/500 ML BAG IV SCH ×2 (01:05→08:16)
[2020-11-08] MEDS: PATIENT'S HEIGHT AND/OR WEIGHT NEEDED SCH (05:09)
[2020-11-08] MEDS: AMPICILLIN/SULBACTAM SOD 3,000 MG in 0.9 % SODIUM CHLORIDE 100 ML IV SCH ×3 (05:57→17:23)
[2020-11-08 06:24] LABS: Basophils # (auto) 0.03 K/uL (0-0.2); Basophils % (auto) 0.5 %; Eosinophils # (auto) 0.37 K/uL (0-0.5); Hematocrit (blood only) 32.2 % (42-52); Hemoglobin 10.8 g/dL (14.0-18.0); Immature Granulocytes # (auto) 0.01 K/uL (0.00-0.02); Immature Granulocytes % (auto) 0.2 %; Lymphocytes % (auto) 27.7 %; Mean Corpuscular Hemoglobin 29.8 pg (25-34); Mean Corpuscular Hgb Conc 33.5 g/dL (32-36); Mean Platelet Volume 8.7 fL (7.4-10.4); Monocytes # (auto) 0.69 K/uL (0.11-0.59); Monocytes % (auto) 11.2 %; Neutrophils # (auto) 3.34 K/uL (1.4-6.5); Neutrophils % (auto) 54.4 %; Platelet Count 400 K/uL (130-400); RDW Coefficient of Variation 13.8 % (11.5-14.5); Red Blood Count 3.62 M/uL (4.7-6.1); White Blood Count 6.14 K/uL (4.8-10.8)
--- NOTE | 2020-11-08 06:55 | Billing Data ---
Date of Service November 07, 2020 Coding Level of Care Code 57950 Initial Inpt Care Lvl 3
[2020-11-08 06:56] LABS: BUN Creatinine Ratio 16.3 (10-20); Calcium 8.4 mg/dl (8.5-10.1); Creatinine Clr Calc Pharmacy 66.5 ml/min; Est GFR (African American) 109.2; Est GFR (Non-African American) 94.2; Potassium 3.5 mmol/L (3.5-5.1)
[2020-11-08 07:07] LABS: RBC Morphology Unremarkable
[2020-11-08] MEDS: DOCUSATE SODIUM 100 MG CAP PO SCH (07:34)
[2020-11-08] MEDS: FLUTICASONE PROPIONATE NA SPR 16 GM BTL SCH ×2 (07:34→20:07)
[2020-11-08] MEDS: THIAMINE HCL 100 MG TAB PO SCH (07:35)
[2020-11-08] MEDS: MULTIVITAMIN TAB PO SCH (07:35)
[2020-11-08] MEDS: CHOLECALCIFEROL 1,000 UNITS 25 MCG TAB PO SCH (07:36)
[2020-11-08] MEDS: ASCORBIC ACID 500 MG TAB PO SCH (07:36)
[2020-11-08 07:41] LABS: Partial Thromboplastin Ratio 1.7
[2020-11-08 07:51] LABS: Partial Thromboplastin Time 45.8 Seconds (21.0-31.0)
[2020-11-08] MEDS ORDERED: NON-FORMULARY MEDICATION (Food Supplemt, Lactose-Reduced [Ensure] Liquid) PO SCH (09:00)
--- NOTE | 2020-11-08 09:47 | Hospitalist Progress Note ---
Date of Service November 08, 2020 Assessment & Plan (1) UTI (urinary tract infection) due to urinary indwelling Ashraf catheter: 75-year-old male past medical history significant for dementia, cerebellar degeneration, upper and lower extremity contractures, BPH with chronic indwelling Ashraf and history of multiple UTIs admitted for complicated UTI and scrotal/penile cellulitis. Complicated UTI in Chronic Indwelling Ashraf Catheter -Initial presentation with copious purulent drainage around catheter site and hx of repeated UTI's -Ashraf was replaced in ED on admission -CT Ab/Pelv without acute findings of abscesses or free air in the perineum -Urology Consulted - no plans for surgical interventions at this time, continue Abx treatment, continue Ashraf cath -UA Nitrate+, WBC >30, 2+ Bacteria -Urine culture growing Corynebacterium species (pending speciation of C. urealyticum) -Continue Unasyn IV, plan for transition to PO Augmentin x8 days for total 10 day course DVT of L Superficial Femoral Vein -Noted incidentally on CT -Started on Heparin gtt on admission -Will transition to therapeutic Lovenox 1.5mg/kg x5 days -Start Warfarin 5mg today while bridging with Lovenox -Plan to DC on Warfarin 3mg QD with adjustments for goal INR 2-3 for 3 months -Will require lifelong anticoagulation, recommend Xarelto 10mg QD indefinitely after 3 months of therapeutic treatment. -INR check in AM, repeat INR on Thursday at [place] if discharged tomorrow. Poor oral intake, dysphagia: Severe Protein-Calorie malnutrition -Aspiration precautions, regular pured diet and advance consistency as able. -Patient is on Ensure at home. Boost twice daily while admitted. -Dietary consulted and aware of patient Hx Anemia -Base hgb 10-12 -Admission hgb 10.9 stable Muscular contractures: -Continue home tizanidine 2 mg twice daily as needed. Chronic knee pain: -Continue home Voltaren gel. CODE STATUS: DNR/DNI, discussed with patients POA and Sister in length today. FEN/GI: Regular pured diet DVT prophylaxis: Heparin GTT Dispo: Med/Surg for IV antibiotics, plan to transition to oral Abx, anticoagulation, likely discharge back to [place] tomorrow. (2) Cellulitis of scrotum: (3) Chronic indwelling Ashraf catheter: (4) Muscle contracture: (5) Primary cerebellar degeneration: (6) Knee pain: (7) BPH (benign prostatic hyperplasia): (8) DVT (deep venous thrombosis): Admission and Anticipated Discharge Date Admission Date: November 07, 2020 Supervising Physician Co-Signing Physician Notes Resident Physician Supervision Note: I independently interviewed and examined the patient and verified the feng history and physical, reviewed labs and image studies, discussed the case with the resident Dr. Layne and agree with the findings and care plan. Subjective Patient evaluated at the bedside this AM. Patient while pleasant, was somewhat confused of his situation. He was able to note that he was not currently experiencing any pain, but was also convinced we were at his home and not the hospital. Minimal ROS obtainable this AM. Review of Systems Review of Systems: Unobtainable due to cognitive status Physical Exam Constitutional: + thin, + cachectic, cooperative, comfortable and + malnourished; not in distress and not combative Eyes: PERRL, conjunctivae normal, anicteric sclerae ENMT: external ear and nose normal, oropharynx normal Respiratory: normal respiratory effort, lungs clear to auscultation Cardiovascular: RRR, no murmur, no edema Gastrointestinal (Abdomen): normal bowel sounds, soft, nontender, no hepatosplenomegaly Genitourinary: + penis abnormality (hypospadias to the scrotum ) and + hypospadias Ashraf catheter in place Slight yellow discharge surrounding the insertion of the urinary cath. Results & Data Results & Data ([facility]) Vital Signs (Past 12 Hours) Vital Signs Temp Pulse Pulse Resp BP BP Pulse Ox 11/08/20 07:19 36.4 C L 72 16 122/55 L 99 11/07/20 22:47 36.7 C 84 14 125/65 100 11/07/20 22:23 69 16 132/76 99 Resident Activity Tracking Resident Involvement: Resident Care Provided Care Provided: Adult Hospital Medicine (1) BPH (benign prostatic hyperplasia) Lower urinary tract symptom presence: unspecified whether lower urinary tract symptoms present Qualified Code(s): N40.0 - Benign prostatic hyperplasia without lower urinary tract symptoms (2) Muscle contracture Muscle contracture area: unspecified site Qualified Code(s): M62.40 - Contracture of muscle, unspecified site (3) DVT (deep venous thrombosis) Affected thrombotic vein of extremity: unspecified lower extremity proximal vein Chronicity: acute DVT location: lower extremity Laterality: left Qu alified Code(s): I82.4Y2 - Acute embolism and thrombosis of unspecified deep veins of left proximal lower extremity (4) UTI (urinary tract infection) due to urinary indwelling Ashraf catheter Encounter type: initial encounter Indwelling urinary catheter type: indwelling urethral catheter Qualified Code(s): T83.511A - Infection and inflammatory reaction due to indwelling urethral catheter, initial encounter; N39.0 - Urinary tract infection, site not specified (5) Knee pain Chronicity: chronic Laterality: bilateral Qualified Code(s): M25.561 - Pain in right knee; M25.562 - Pain in left knee; G89.29 - Other chronic pain
--- NOTE | 2020-11-08 10:47 | Urology Consultation ---
Date of Consultation November 08, 2020 Assessment & Plan (1) Acute UTI: (2) Hypospadias, penoscrotal: UTIs; chronic urinary retention; acquired hypospadias secondary to traction on Ashraf catheter 1. UTIantibiotics per primary team 2. Chronic urinary retentioncontinue catheter 3. Acquired hypospadiasthis is a result of pressure on the ventral surface of the penis causing erosion, erosion is quite progressed and now is extended to the level of the scrotum. Although he has erythema of the underlying urethral mucosa, I do not see any active bleeding and it does not appear to be infected. Overall, this is a chronic problem that will not be correctable and potentially could worsen with continued traction on the catheter. It is very important to keep the Ashraf off traction and not tucked under his leg. Will theoretically a suprapubic catheter would help alleviate some of these issues, I am uncertain that a good idea given his current positioning and overall status. For the time being I recommend continuing the Ashraf catheter and living with hypospadias. Please call if there are further issues during this hospitalization History of Present Illness Attending Physician: Eva Tucker MD History of Present Illness Patient admitted overnight with UTIchronic Ashraf catheter, consult placed secondary to acquired hypospadias and erythema of the residual aspect of the penis He has been afebrile Hemodynamically stable Antibiotics for UTI Longstanding catheter use Venous thrombus noted on imaging Contracted position Long-term resident of a nursing facility Allergies Allergy/AdvReac Type Severity Reaction Status Date / Time No Known Allergies Allergy Verified 11/07/20 21:07 Home Medications Medication Instructions Recorded Confirmed Type diclofenac sodium 4 g TOPICAL BID 04/16/20 11/07/20 History diclofenac sodium 4 gm TOPICAL HS 04/16/20 11/07/20 History multivitamin [Daily-Ivan] 1 tab PO QAM 04/16/20 11/07/20 History fluticasone propionate 1 spray INTRANASAL BID 06/03/20 11/07/20 History Ensure 1 ea PO DAILY 07/04/20 11/07/20 History acetaminophen [Arthritis Pain 650 mg PO Q12H PRN MDD 3 GMS 07/04/20 11/07/20 History Reliever] APAP/24 HOURS diclofenac sodium 2 g TOPICAL QID PRN 07/04/20 11/07/20 History nystatin 1 appln TOP TID 07/04/20 11/07/20 History tamsulosin 0.4 mg PO HS 07/04/20 11/07/20 History tizanidine 2 mg PO BID PRN 07/04/20 11/07/20 History thiamine HCl (vitamin B1) [Vitamin 100 mg PO QAM #30 tab 08/27/20 11/07/20 Rx B-1] ondansetron HCl 4 mg PO Q8H PRN 09/12/20 11/07/20 History ascorbic acid (vitamin C) [Vitamin 500 mg PO QAM 10/14/20 11/07/20 History C] cholecalciferol (vitamin D3) 25 mcg PO QAM 10/14/20 11/07/20 History docusate sodium 100 mg PO QAM 10/14/20 11/07/20 History dutasteride [Avodart] 0.5 mg PO QAM 10/14/20 11/07/20 History Patient History Medical History (Updated 11/08/20 @ 10:46 by Rui Larson MD) Allergic rhinitis At high risk for falls Biliary dyskinesia Catheter-associated urinary tract infection Chronic indwelling Ashraf catheter Cognitive changes Dependent for wheelchair mobility GERD (gastroesophageal reflux disease) Hypercholesteremia Insomnia Knee pain, right Lumbar pain on palpation Muscle weakness (generalized) Primary cerebellar degeneration Sleep disturbances Surgical History History of cholecystectomy S/P hip replacement Status post hip replacement Family History Sister Breast cancer Other No pertinent family history Denies family history of Ovarian cancer Prostate cancer Myocardial infarction Colorectal cancer Social History Smoking Status: Unknown if ever smoked Tobacco Type: Cigarettes Hx Alcohol Use: No Hx Substance Use: No Preferred Language: Icelandic Communication Ability: Effective Photographs Curator Required: No Beliefs That Will Affect Care: None marital status: Unknown Current Living Situation: Prison [facility] current occupational status: disabled How many Children do You have: 0 Other Information That Helps Us Care for You: No Feels Safe at Home: Yes Safety Concerns: Feels Safe At This Time caffeine: Yes Dental Care, Regularly: No Physical Activity Frequency: Other Physical Activity Frequency Comment: Unable to exercise due to being disabled. Seatbelt Use: always Sunscreen Use: No Assistive Devices: Denture - Upper and Glasses Review of Systems Review of Systems: All systems reviewed & are unremarkable except as noted in HPI & below Physical Exam Physical Exam: Ashraf catheter in place, he has an acquired hypospadias which is but the penis to the midportion of the scrotum. The exposed urethra is erythematous, however this is mucosal tissue and does not appear to be actively infected There is no active bleeding Urine in the catheter is clear Constitutional: + cachectic Contracted, quite cachectic, sunken cheeks Respiratory: no respiratory distress Cardiovascular: Extremities: no pedal edema Gastrointestinal (Abdomen): Inspection/Auscultation: abdomen normal to inspection Results & Data ([facility]) Vital Signs (Past 12 Hours) Vital Signs Temp Pulse Resp BP Pulse Ox 11/08/20 07:19 36.4 C L 72 16 122/55 L 99 11/07/20 22:47 36.7 C 84 14 125/65 100 PG Care Time/CCT Total # of Minutes Spent Total Time Spent with Patient: Total time spent is greater than 50% in coordination of care (as documented) at patient's floor/unit and/or counseling patient: Coding Level of Care Code 80859 Inpt Consult Level 4 Diagnoses Acute UTI N39.0 Hypospadias, penoscrotal Q54.2
[2020-11-08] MEDS: NYSTATIN POWDER 15GM BTL EXT SCH ×3 (13:48→20:07)
[2020-11-08 16:14] LABS: Partial Thromboplastin Ratio 1.8
[2020-11-08 16:19] LABS: Partial Thromboplastin Time 46.6 Seconds (21.0-31.0)
[2020-11-08] MEDS: WARFARIN SOD 5 MG TAB PO SCH (18:09)
[2020-11-08] MEDS: ENOXAPARIN 80 MG/0.8 ML SYR SQ SCH (20:07)
[2020-11-08] MEDS: TAMSULOSIN HCL 0.4 MG CAP PO SCH (20:07)
[2020-11-08] MEDS: DICLOFENAC SOD 1% GEL 100 GM TUBE EXT SCH (20:08)
[2020-11-08] MEDS ORDERED: ENOXAPARIN 1.5 MG/KG SC SCH (21:00)
[2020-11-09] MEDS: AMPICILLIN/SULBACTAM SOD 3,000 MG in 0.9 % SODIUM CHLORIDE 100 ML IV SCH ×5 (01:13→23:05)
[2020-11-09] MEDS: DICLOFENAC SOD 1% GEL 100 GM TUBE EXT SCH ×2 (01:39→20:20)
[2020-11-09] MEDS: tiZANidine HCL 4 MG TABLET PO PRN ×2 (06:21→15:43)
[2020-11-09 06:29] LABS: Basophils # (auto) 0.03 K/uL (0-0.2); Basophils % (auto) 0.5 %; Eosinophils # (auto) 0.26 K/uL (0-0.5); Eosinophils % (auto) 4.6 %; Hematocrit (blood only) 31.5 % (42-52); Hemoglobin 10.6 g/dL (14.0-18.0); Immature Granulocytes # (auto) 0.01 K/uL (0.00-0.02); Immature Granulocytes % (auto) 0.2 %; Lymphocytes # (auto) 1.74 K/uL (1.2-3.4); Mean Corpuscular Hemoglobin 29.8 pg (25-34); Mean Corpuscular Hgb Conc 33.7 g/dL (32-36); Mean Corpuscular Volume 88.5 fL (80-100); Mean Platelet Volume 8.4 fL (7.4-10.4); Monocytes # (auto) 0.54 K/uL (0.11-0.59); Monocytes % (auto) 9.6 %; Neutrophils # (auto) 3.03 K/uL (1.4-6.5); Neutrophils % (auto) 54.1 %; Platelet Count 376 K/uL (130-400); RDW Coefficient of Variation 13.7 % (11.5-14.5); RDW Standard Deviation 44.7 fL (36.4-46.3); Red Blood Count 3.56 M/uL (4.7-6.1); White Blood Count 5.61 K/uL (4.8-10.8)
[2020-11-09 06:43] LABS: Prothrombin Time 10.6 Seconds (9.0-12.0)
[2020-11-09 07:04] LABS: BUN Creatinine Ratio 21.4 (10-20); Calcium 7.9 mg/dl (8.5-10.1); Creatinine Clr Calc Pharmacy 60.4 ml/min; Est GFR (African American) 104.9; Est GFR (Non-African American) 90.5; Potassium 3.9 mmol/L (3.5-5.1)
[2020-11-09] MEDS: FLUTICASONE PROPIONATE NA SPR 16 GM BTL SCH ×2 (07:47→20:13)
[2020-11-09] MEDS: DUTASTERIDE: ORDER AWAITING ACTION SCH ×3 (07:47→23:06)
[2020-11-09] MEDS: NYSTATIN POWDER 15GM BTL EXT SCH ×3 (07:48→20:14)
[2020-11-09] MEDS: DICLOFENAC SOD 1% GEL 100 GM TUBE EXT PRN ×4 (07:48→23:10)
[2020-11-09] MEDS: DOCUSATE SODIUM 100 MG CAP PO SCH (08:49)
[2020-11-09] MEDS: MULTIVITAMIN TAB PO SCH (08:49)
[2020-11-09] MEDS: CHOLECALCIFEROL 1,000 UNITS 25 MCG TAB PO SCH (08:50)
[2020-11-09] MEDS: THIAMINE HCL 100 MG TAB PO SCH (08:50)
[2020-11-09] MEDS: ASCORBIC ACID 500 MG TAB PO SCH (08:50)
[2020-11-09] MEDS: WARFARIN SOD 5 MG TAB PO SCH (15:43)
--- NOTE | 2020-11-09 16:57 | Hospitalist Progress Note ---
Date of Service November 09, 2020 Assessment & Plan (1) UTI (urinary tract infection) due to urinary indwelling Ashraf catheter: 75-year-old male past medical history significant for dementia, cerebellar degeneration, upper and lower extremity contractures, BPH with chronic indwelling Ashraf and history of multiple UTIs admitted for complicated UTI and scrotal/penile cellulitis. Complicated UTI in Chronic Indwelling Ashraf Catheter Initially presented to the emergency department with the Ashraf in place and copious purulent drainage around the catheter site and history of repeated UTIs, UA on admission was positive for nitrates, WBCs greater than 30, 2+ bacteria, CT abdomen pelvis was without acute findings of abscess or free air in the peritoneum. Urology was consulted there is no plans for surgical surgical intervention at this time they recommend continuing antibiotics treatment and continue Ashraf catheter. Urine culture is positive for Corynebacterium not C. urealyticum. -Continue Unasyn IV, plan for transition to PO Augmentin x8 days for total 10 day course -Routine care of chronic indwelling catheter DVT of L Superficial Femoral Vein Was noted incidentally on CT, patient was started on a heparin GTT on admission. This was transitioned to therapeutic Lovenox at 1.5 mix per cake x5 days. warfarin was started at 5 mg while bridging with Lovenox, plan to DC the warfarin 3 mg daily with adjustments for goal INR for 3 months. Given the patient's presentation he will require lifelong anticoagulation would suggest considering transition to Xarelto 10 mg daily indefinitely after 3 months of therapeutic treatment. -Trending INR: 1.0 Poor oral intake, dysphagia: -Aspiration precautions, regular pured diet and advance consistency as able. -Patient is on Ensure at home. Boost twice daily while admitted. -Dietary consulted and aware of patient Hx Anemia -Base hgb 10-12 -hgb 10.9->10.8->10.6 Muscular contractures: -Continue home tizanidine 2 mg twice daily as needed. -Required additional dose today. Chronic knee pain: -Continue home Voltaren gel. FENa: See above Code Status: DNR/DNI DVT PPX: Lovenox with heparin bridge PT/OT: Recommending SNF Dispo: Medically stable pending approval for DC to SNF Joaquin Lawson MD PGY 2, FCM This chart was completed utilizing dragon dictation voice recognition software. Grammatical errors, random word insertions, pronoun errors, and in complete sentences are an occasional consequence of the system. Any questions or concerns about the content, text, or information contained within the body of this dictation should be addressed directly to the physician for clarification. CODE STATUS: DNR/DNI, discussed with patients POA and Sister in length today. FEN/GI: Regular pured diet DVT prophylaxis: Heparin GTT Dispo: Med/Surg for IV antibiotics, plan to transition to oral Abx, anticoagulation, likely discharge back to [place] tomorrow. (2) Cellulitis of scrotum: (3) Chronic indwelling Ashraf catheter: (4) Muscle contracture: (5) Primary cerebellar degeneration: (6) Knee pain: (7) BPH (benign prostatic hyperplasia): (8) DVT (deep venous thrombosis): Admission and Anticipated Discharge Date Admission Date: November 07, 2020 Supervising Physician Co-Signing Physician Notes Resident Physician Supervision Note: I independently interviewed and examined the patient and verified the feng history and physical, reviewed labs and image studies, discussed the case with the resident Dr. Lawson and agree with the findings and care plan. Subjective History limited as patient is nonverbal, patient endorsing pain in his right leg this morning, per report no acute events overnight, patient voiding catheter in place, stooling, tolerating diet, slept overnight. Physical Exam Physical Exam: General: Patient lying in bed endorsing right lower extremity pain HEENT: Normocephalic atraumatic Neck: Normal to inspection Cardiac: Regular rate and rhythm did not appreciate any murmurs or gallops, normal S1, normal S2, negative pedal edema, no calf tenderness Respiratory: Clear to auscultation bilaterally symmetrical chest expansion I did not appreciate significant wheezes, rales, rhonchi's, no increased work of breathing GI: Soft, nontender, nondistended, bowel sounds present Neuro: Alert not oriented to person place or location Psych: Calm and cooperative with the interview Results & Data Results & Data ([facility]) Vital Signs (Past 12 Hours) Vital Signs Temp Pulse Resp BP BP Pulse Ox 11/09/20 15:18 36.5 C 87 16 118/63 99 11/09/20 07:30 36.4 C L 85 16 104/61 99 Resident Activity Tracking Resident Involvement: Resident Care Provided Care Provided: Adult Hospital Medicine (1) BPH (benign prostatic hyperplasia) Lower urinary tract symptom presence: unspecified whether lower urinary tract symptoms present Qualified Code(s): N40.0 - Benign prostatic hyperplasia without lower urinary tract symptoms (2) Muscle contracture Muscle contracture area: unspecified site Qualified Code(s): M62.40 - Contracture of muscle, unspecified site (3) DVT (deep venous thrombosis) Affected thrombotic vein of extremity: unspecified lower extremity proximal vein Chronicity: acute DVT location: lower extremity Laterality: left Qualified Code(s): I82.4Y2 - Acute embolism and thrombosis of unspecified deep veins of left proximal lower extremity (4) UTI (urinary tract infection) due to urinary indwelling Ashraf catheter Encounter type: initial encounter Indwelling urinary catheter type: indwelling urethral catheter Qualified Code(s): T83.511A - Infection and inflammatory reaction due to indwelling urethral catheter, initial encounter; N39.0 - Urinary tract infection, site not specified (5) Knee pain Chronicity: chronic Laterality: bilateral Qualified Code(s): M25.561 - Pain in right knee; M25.562 - Pain in left knee; G89.29 - Other chronic pain
[2020-11-09] MEDS: ENOXAPARIN 80 MG/0.8 ML SYR SQ SCH (20:25)
[2020-11-09] MEDS: TAMSULOSIN HCL 0.4 MG CAP PO SCH (20:25)
[2020-11-10] MEDS: AMPICILLIN/SULBACTAM SOD 3,000 MG in 0.9 % SODIUM CHLORIDE 100 ML IV SCH ×2 (05:10→11:26)
[2020-11-10] MEDS: tiZANidine HCL 4 MG TABLET PO PRN (05:49)
[2020-11-10] MEDS: DUTASTERIDE: ORDER AWAITING ACTION SCH (07:05)
[2020-11-10] MEDS: CHOLECALCIFEROL 1,000 UNITS 25 MCG TAB PO SCH (07:25)
[2020-11-10] MEDS: DOCUSATE SODIUM 100 MG CAP PO SCH (07:25)
[2020-11-10] MEDS: THIAMINE HCL 100 MG TAB PO SCH (07:25)
[2020-11-10] MEDS: MULTIVITAMIN TAB PO SCH (07:26)
[2020-11-10] MEDS: ASCORBIC ACID 500 MG TAB PO SCH (07:26)
[2020-11-10] MEDS: NYSTATIN POWDER 15GM BTL EXT SCH ×2 (07:27→14:24)
[2020-11-10] MEDS: FLUTICASONE PROPIONATE NA SPR 16 GM BTL SCH (07:27)
[2020-11-10] MEDS: DICLOFENAC SOD 1% GEL 100 GM TUBE EXT PRN (07:28)
--- NOTE | 2020-11-10 12:39 | Discharge Summary ---
Date of Service November 10, 2020 Admission HPI Per Admitting Provider 75-year-old male past medical history significant for dementia, cerebellar degeneration, upper and lower extremity contractures, BPH with chronic indwelling Ashraf and history of multiple UTIs presented to ER from [facility] for complaints of penile pain and swelling around his catheter site. Patient himself is a poor historian, appears frustrated and uncomfortable but is able to qualify what is bothering him. When asked, he denied chest pain, shortness of breath, belly pain. He responded no to penile pain when first asked, but replied yes when asked a few minutes later. In the ER patient was found to be hemodynamically stable, no white count, catheter site with copious purulent appearing discharge and swelling and erythema to the penile shaft and scrotum. Also noted to have erosion of the penile shaft secondary to his chronic catheter. UA appeared consistent with infection, urine and blood cultures were collected and patient was started on Unasyn given his history of Proteus UTIs. Principal Diagnosis UTI Discharge Exam Constitutional WD/WN, vitals as above Eyes PERRL, conjunctivae normal, anicteric sclerae ENMT external ear and nose normal, oropharynx normal Respiratory normal respiratory effort, lungs clear to auscultation Cardiovascular RRR, no murmur, no edema Gastrointestinal (Abdomen) normal bowel sounds, soft, nontender, no hepatosplenomegaly Psychiatric Alert not oriented to person place or location Genitourinary per urology: acquired hypospadias from the penis to the midportion of the scrotum. The exposed urethra is erythematous, however this is mucosal tissue and does not appear to be actively infected Discharge Data Allergies Allergy/AdvReac Type Severity Reaction Status Date / Time No Known Allergies Allergy Verified 11/07/20 21:07 Consultations 11/07/20 20:49 ED Decision to Admit Stat 11/07/20 22:43 Consult Urology Routine Ordered Studies 11/07/20 17:55 CT abd pelvis IV con only Stat Hospital Course (1) UTI (urinary tract infection) due to urinary indwelling Ashraf catheter: 75-year-old male past medical history significant for dementia, cerebellar degeneration, upper and lower extremity contractures, BPH with chronic indwelling Ashraf and history of multiple UTIs admitted for complicated UTI and scrotal/penile cellulitis. The following was the medical management during stay here: Complicated UTI in Chronic Indwelling Ashraf Catheter -Initially presented to the emergency department with the Ashraf in place and copious purulent drainage around the catheter site and history of repeated UTIs, UA on admission was positive for nitrates, WBCs greater than 30, 2+ bacteria, CT abdomen pelvis was without acute findings of abscess or free air in the peritoneum. -Urology consulted: no plans for surgical surgical intervention at this time they recommend continuing antibiotics treatment and continue Ashraf catheter. -Urine culture is positive for Corynebacterium not C. urealyticum. -Unasyn IV was transitioned on day of d/c to PO Augmentin x8 days for total 10 day course -Routine care of chronic indwelling catheter Acquired hypospadias Urology was consulted: this is a result of pressure on the ventral surface of the penis causing erosion, erosion is quite progressed and now is extended to the level of the scrotum. Although pt has erythema of the underlying urethral mucosa, we do not see any active bleeding and it does not appear to be infected. Overall, this is a chronic problem that will not be correctable and potentially could worsen with continued traction on the catheter. Important to keep the Ashraf off traction and not tucked under his leg. -theoretically a suprapubic catheter would help alleviate some of these issues, but uncertain that a good idea given his current positioning and overall status -For the time being urology recommended continuing the Ashraf catheter and living with hypospadias DVT of L Superficial Femoral Vein -Was noted incidentally on CT started on a heparin GTT on admission. Transitioned to therapeutic Lovenox at 1.5 mg/kg (80 SQ daily) x5 days (ending 11/13/20). Warfarin was started at 5 mg while bridging with Lovenox, plan to DC the warfarin 3 mg daily with adjustments for goal INR for 3 months. -Given the patient's presentation he will require lifelong anticoagulation would suggest considering transition to Xarelto 10 mg daily indefinitely after 3 months of therapeutic treatment. -Trending INR: 1.0 on day of discharge. Will arrange for to recheck this tomorrow, 11/11/20 Poor oral intake, dysphagia: -Aspiration precautions, regular pured diet and advance consistency as able. -Patient is on Ensure at home. Boost twice daily while admitted. -Dietary was consulted and aware of patient Hx Anemia -Base hgb 10-12, was 10.6 on day of d/c Muscular contractures: -Continue home tizanidine 2 mg twice daily as needed. Chronic knee pain: -Continue home Voltaren gel Per our case manager specialist, spoke with pts sister to update her on SNF pending referrals. She reports she and her brother have decided they would like pt to return to [facility] while they work on alternative placement (higher level of care at either [facility] vs [facility]). Pt with no other acute concerns or complaints on day of d/c. Total Time Total Time Spent Total Time Spent (In Minutes): 30 Discharge Plan Discharge Items Patient Disposition: Hospice - Medical Facility Reason For Visit: Complicated UTI, penile shaft eronsion Discharge Diagnosis: UTI Condition on Discharge: Fair Activity: Per Instructions section Non-emergency contact: Primary Care Provider Call non-emergency contact if: you have any medication questions, your symptoms worsen, your pain is not controlled and your temperature is above 101.5 [facility] [Primary Care Provider] - Diet: Regular and Other - See Diet Comment Diet Texture: Pureed (blended smooth) Diet Comment: pureed food Ambulatory Orders: Prothrombin Time INR (Routine) Timeframe: [id number] Location: Determined by Patient Ordered By: James Hansen Attending Provider Instructions: 75-year-old male past medical history significant for dementia, cerebellar degeneration, upper and lower extremity contractures, BPH with chronic indwelling Ashraf and history of multiple UTIs admitted for complicated UTI and scrotal/penile cellulitis. The following was the medical management during stay here: Complicated UTI in Chronic Indwelling Ashraf Catheter -Initially presented to the emergency department with the Ahsraf in place and copious purulent drainage around the catheter site and history of repeated UTIs, UA on admission was positive for nitrates, WBCs greater than 30, 2+ bacteria, CT abdomen pelvis was without acute findings of abscess or free air in the peritoneum. -Urology was consulted there is no plans for surgical surgical intervention at this time they recommend continuing antibiotics treatment and continue Ashraf catheter. Urine culture is positive for Corynebacterium not C. urealyticum. - Unasyn IV was transitioned on day of d/c to PO Augmentin x8 days for total 10 day course -Routine care of chronic indwelling catheter Acquired hypospadias Urology was consulted and noted this is a result of pressure on the ventral surface of the penis causing erosion, erosion is quite progressed and now is extended to the level of the scrotum. Although pt has erythema of the underlying urethral mucosa, we do not see any active bleeding and it does not appear to be infected. Overall, this is a chronic problem that will not be correctable and potentially could worsen with continued traction on the catheter. It is very important to keep the Ashraf off traction and not tucked under his leg. -theoretically a suprapubic catheter would help alleviate some of these issues, but uncertain that a good idea given his current positioning and overall status -For the time being urology recommended continuing the Ashraf catheter and living with hypospadias DVT of L Superficial Femoral Vein -Was noted incidentally on CT, patient was started on a heparin GTT on admission. This was transitioned to therapeutic Lovenox at 1.5 mg/kg (80 SQ daily) x5 days (ending 11/13/20). Warfarin was started at 5 mg while bridging with Lovenox, plan to DC the warfarin 3 mg daily with adjustments for goal INR for 3 months. -Given the patient's presentation he will require lifelong anticoagulation would suggest considering transition to Xarelto 10 mg daily indefinitely after 3 months of therapeutic treatment. -Trending INR: 1.0 on day of discharge. Will arrange for to recheck this tomorrow, 11/11/20 Poor oral intake, dysphagia: -Aspiration precautions, regular pured diet and advance consistency as able. -Patient is on Ensure at home. Boost twice daily while admitted. -Dietary was consulted and aware of patient Hx Anemia -Base hgb 10-12, was 10.6 on day of d/c Muscular contractures: -Continue home tizanidine 2 mg twice daily as needed. Chronic knee pain: -Continue home Voltaren gel Per our case manager specialist, spoke with pts sister to update her on SNF pending referrals. She reports she and her brother have decided they would like pt to return to [facility] while they work on alternative placement (higher level of care at either [facility] vs [facility]). Pt with no other acute concerns or complaints on day of d/c. Pending Studies at Discharge: No Stand-Alone Forms: My [facility] Skilled Items Patient informed of condition?: Yes DNR: Yes Discharge Level of Care: Skilled Communicable Disease: No Discharge Prognosis: Stable Lines: None Urinary Catheter: Yes Medications and DC Order Prescriptions: New amoxicillin-pot clavulanate [Augmentin] 875-125 mg tablet 1 tab PO BID 8 Days Qty: 16 RF: 0 enoxaparin [Lovenox] 80 mg/0.8 mL syringe 80 mg subcut DAILY 3 Days Qty: 2.4 RF: 0 warfarin 3 mg tablet 3 mg PO DAILY 90 Days Qty: 90 RF: 0 Continued fluticasone propionate 50 mcg/actuation spray,suspension 1 spray intranasal BID RF: 0 Ensure Liquid 1 ea PO DAILY RF: 0 tamsulosin 0.4 mg capsule 0.4 mg PO HS RF: 0 nystatin 100,000 unit/gram powder 1 appln TOP TID RF: 0 tizanidine 2 mg capsule 2 mg PO BID PRN (Reason: Muscle Spasticity) RF: 0 acetaminophen [Arthritis Pain Reliever] 650 mg Tablet Extended Release 650 mg PO Q12H MDD 3 GMS APAP/24 HOURS PRN (Reason: Fever Or Pain) RF: 0 diclofenac sodium 1 % Gel 2 g TOPICAL QID PRN (Reason: Pain) RF: 0 thiamine HCl (vitamin B1) [Vitamin B-1] 100 mg Tablet 100 mg PO QAM Qty: 30 RF: 0 ondansetron HCl 4 mg tablet 4 mg PO Q8H PRN (Reason: Nausea And Vomiting) RF: 0 multivitamin [Daily-Ivan] Tablet 1 tab PO QAM RF: 0 diclofenac sodium 1 % gel 4 g TOPICAL BID RF: 0 diclofenac sodium 1 % gel 4 gm topical HS RF: 0 ascorbic acid (vitamin C) [Vitamin C] 500 mg tablet 500 mg PO QAM RF: 0 docusate sodium 100 mg capsule 100 mg PO QAM RF: 0 cholecalciferol (vitamin D3) 25 mcg (1,000 unit) capsule 25 mcg PO QAM RF: 0 dutasteride [Avodart] 0.5 mg capsule 0.5 mg PO QAM RF: 0 Discharge Orders: Discharge Order (Routine); Ordered 11/10/20 Ordered By: James Alonso/Other Patient Handouts: Catheter-Linked Urinary Tract ... Admission Data Admit Date/Time: 02/10/21 21:27 Attending Provider: Eva Tucker Admit Provider: Lilo Lawson Primary Care Provider: RUIZ ARTIS EYAD Other Providers: Lilo Lawson ; Mu Wiseman ; [facility] ; [place], Other Interventions: Discharge Summary Assessment (RN) Last Done: 11/10/20 15:57 Supervising Physician Co-Signing Physician Notes Resident Physician Supervision Note: I independently interviewed and examined the patient and verified the feng history and physical, reviewed labs and image studies, discussed the case with the resident Dr. Harper and agree with the findings and care plan. Resident Activity Tracking Resident Involvement: Resident Care Provided Care Provided: Adult Hospital Medicine
== END 2020-11-10 15:40 | disposition home or self-care (01) | DRG 698 ==
LOC: ED 17:25 → SUATTDRO 21:27 → 3N 21:27